=== PATIENT | male | born 1970 | race Caucasian/White ===

== ENCOUNTER 2022-01-30 19:53 | Inpatient (IN) | payer SELFPAY ==
[~2022-01-30] VITALS: Ht 180.3 cm; Wt 90.3 kg
[2022-01-30] VITALS (9 sets, daily range): BP systolic 94–116; BP diastolic 55–76
[2022-01-30] MEDS ORDERED: HALOPERIDOL LACTATE 5 MG/ML VIAL. IVP PRN (20:00)
--- NOTE | 2022-01-30 20:07 | NUR ---
admit form [facility] ER. patient's father found patient at home unresponsive covered in urine and feces. EMS called. CT shows left CVA. patient is mostly non- verbal . Once in a while will groan. unable to complete admission,.
[2022-01-30] MEDS ORDERED: 0.9 % SODIUM CHLORIDE 10 ML DISP.SYRIN. IV PRN (21:30)
[2022-01-30] MEDS ORDERED: ONDANSETRON PF 4 MG/2 ML VIAL. IVP PRN (21:30)
--- NOTE | 2022-01-30 21:59 | PDOC1 ---
History and Physical Date of Service: DOS: DATE: 01/30/22 TIME: 21:31 Chief Complaint: Chief Complain: found down History of Present Illness: HPI: Report from [facility] 51yo WM brought in by EMS today due to AMS and found down at home unresponsive, eventually having seizures on way to hospital. History was obtain from patients father and brother. No known PMHx but does not see doctors, family does not know much else about his medical history; father and brother do not speak with patient much, uncle lives close to him. They are able to endorse he is a daily alcohol user, no known drug use. Is normally able to take care of himself at home. Patient uncle had noted he was acting abnormal 2d ago and said he wasnt feeling well. Attempts at contacting him since had been unsuccessful and family went to check on him and he was found on his floor cover in stool not responding. EMS called at brought to hospital. On arrival patient active seizing, imaging revealed large acute ischemic stroke with small hemorrhagic conversion. He was also covered in stool and wounds. Seizing ceased wtih Ativan and patient was able to open his eyes minimally but swtill no meaningful history. Given Keppra load, broad abx and transferred here. On arrival here patient not responding to pain or voice, nursing at bedside reported he tried to mutter something when they were evaluating. Patient very unkempt, multiple wounds, R great toenail mostly torn off; other toenails at least a few inches long. Despite all of this hemodynamically pretty stable on arrival. Past Medical/Surgical History: PMH/PSH: alcohol abuse otherwise unknown Family History: Family History: cannot obtain Social History: Social History: daily alcohol use; unknown about tobacco drugs Current Medications: Current Medications Current Medications Multivitamins 10 ml/Thiamine HCl 100 mg/Folic Acid 1 mg/Sodium Chloride 1,011.2 ml @ 100 mls/ hr DAILY IV ; Start 01/31/22 at 09:00; Stop 02/04/22 at 19:07; Status UNV Multivitamins (Thera M Plus) 1 tab DAILY PO ; Start 02/04/22 at 09:00; Status UNV Folic Acid (Folic Acid) 1 mg DAILY PO ; Start 02/04/22 at 09:00; Status UNV Thiamine HCl (Thiamine Im) 100 mg DAILY IM ; Start 02/04/22 at 09:00; Stop 02/09/22 at 08:59; Status UNV Lorazepam (Ativan Inj) 2 mg PRN Q1HR PRN IV For CIWA 8-14; Start 01/30/22 at 20:00; Status UNV Lorazepam (Ativan Inj) 4 mg PRN Q1HR PRN IV For CIWA 15 or greater; Start 01/30/22 at 20:00; Status UNV Haloperidol Lactate (Haldol Inj) 5 mg PRN Q4HRS PRN IVP Hallucinatns,Confusn,Delirium; Start 01/30/22 at 20:00; Status UNV ROS: Review of Systems Review of System cannot obtain Physical Exam: Vital Signs: Vital Signs Date Time Temp Pulse Resp B/P (MAP) Pulse Ox O2 Delivery O2 Flow Rate FiO2 01/30/22 20:30 90 115/71 (86) 99 Room Air 01/30/22 19:00 98.2 98.2 Physcial Exam: GEN: no arousal to voice or stimuli HEENT: Normal cephalic, atraumatic, external auditory canals are patent EYES: pupils reactive MUSCULOSKELETAL: very unkempt, multiple wounds, malodorous ENDOCRINE: No thyromegaly was palpated LYMPHATICS: No cervical chain or axillary nodes were noted HEMATOPOIETIC: No bruising LUNGS: decreased throughout HEART: RRR, S1, S2 present. Peripheral pulses intact ABDOMEN: Soft, nontender. Positive bowel sounds, no organomegaly, normal bowel sounds EXTREMITIES: R 1st toenail ripped off, dirty with wounds NEUROLOGIC: no arousal to voice of painful stimuli; reported right sided deficits from [facility]; Assessment/Plan Assessment/Plan Acute Ischemic Stroke, Seizure 2/2 alcohol w/d?, Lactic acidosis, Alcohol abuse, Unable to care for self, Diffuse wounds -found down at home, unknown how long; imaging showing ischemic stroke with small hemorrhagic conversion -stroke and neuro consults -suspect seizures related to alcohol w/d; lactic acidosis likely 2/2 seizure activity -wound care podiatry consult -CIWA; ativan for any further seizure like activity as well -fluids, recheck CK -empiric antibiotics; -will try to elicit further history from family in morning -PT/OT once more alert 55min critical care time Justifications for Admission Other Justification UMANG CANDELARIO MD Jan 30, 2022 21:59
[2022-01-30] MEDS ORDERED: IV NORMAL SALINE 1000ML BAG 1,000 ML IV ONE (22:00)
[2022-01-30] MEDS ORDERED: HEPARIN for SUB-Q USE 5,000 UNIT/ML VIAL. SQ SCH (22:00)
[2022-01-30] MEDS ORDERED: PIP/TAZO PER PHARMACY MC PRN (22:00)
[2022-01-30 22:20] LABS: ALBUMIN 2.5 g/dL (3.4-5.0); ALBUMIN/GLOBULIN RATIO 0.7 (1.0-1.7); CALCIUM 7.7 mg/dL (8.5-10.1); CREATININE 0.9 mg/dL (0.7-1.3); TOTAL BILIRUBIN 1.1 mg/dL (0.2-1.0)
[2022-01-30 22:27] LABS: POTASSIUM 2.9 mmol/L (3.5-5.1)
[2022-01-30 23:07] LABS: BASO # 0.1 x10^3/uL (0.0-0.2); BASO % 1 % (0-3); EOS # 0.2 x10^3/uL (0.0-0.7); EOS % 3 % (0-3); HEMATOCRIT 35.3 % (39.0-53.0); HEMOGLOBIN 11.9 g/dL (13.0-17.5); LYMPH # 2.2 x10^3/uL (1.0-4.8); LYMPH % 31 % (24-48); MEAN CORPUSCULAR HEMOGLOBIN 35 pg (25-35); MEAN CORPUSCULAR HGB CONC 34 g/dL (31-37); MEAN CORPUSCULAR VOLUME 104 fL (79-100); MONO # 0.8 x10^3/uL (0.0-1.1); MONO % 11 % (0-9); NEUT % 54 % (31-73); PLATELET COUNT 246 x10^3/uL (140-400); RED BLOOD COUNT 3.41 x10^6/uL (4.30-5.70); RED CELL DISTRIBUTION WIDTH 17.1 % (11.5-14.5); WHITE BLOOD COUNT 7.3 x10^3/uL (4.0-11.0)
[2022-01-30] MEDS: POTASSIUM CHLORIDE 10MEQ 100 ML IV SCH (23:15)
[2022-01-30] MEDS: PIPERACILLIN/TAZOBACTAM 3.375 GM in IV NORMAL SALINE 50ML 50 ML IV SCH (23:20)
[2022-01-30] MEDS: VANCOMYCIN 1.25 GM in IV NORMAL SALINE 250ML 250 ML IV SCH (23:58)
[2022-01-31] VITALS (23 sets, daily range): BP systolic 97–161; BP diastolic 46–100
[2022-01-31] MEDS: POTASSIUM CHLORIDE 10MEQ 100 ML IV SCH ×12 (00:17→15:51)
[2022-01-31] MEDS: VANCOMYCIN PER PHARMACY MC PRN ×2 (01:33→17:11)
--- NOTE | 2022-01-31 01:33 | NUR ---
Pharmacy Vancomycin Dosing Note S:Consulted to monitor and dose vancomycin started 01/30/22. O:DOUG VARMA is a 51 year old M with Empiric . Height: 5 feet, 11 inches Weight: 82.8 kg [place] Body Weight: 75.30 Adjusted Body Weight: 78.30 Dosing Weight: Actual Other Antibiotics: ZOSYN 3.375 GM Q6H LABS: Last BUN: 12 Last Creatinine: 0.9 Creatinine Clearance: 107 mL/min Last WBC: 7.3 Last Procalcitonin: Tmax (past 24 hours): Microbiology: I/O: Drug Levels: Last level: on at Last dose given 01/31/22 at 0000 Vancomycin Dosing: Loading Dose: 2000 mg x1 Dosing Weight: Actual Target Trough: 15-20 A: Based on: WT AND CRCL P: 1. Begin Vancomycin 1250 mg IV q8h 2. Follow up Trough level on 01/31/22 at 1530 3. Pharmacy will continue to monitor, follow and adjust therapy as needed. SIMIN BIANCHI RPH, 01/31/22 0133 Signed: 01/31/22 at 0133 by SIMIN BIANCHI RPH PHA
[2022-01-31] MEDS: PIPERACILLIN/TAZOBACTAM 3.375 GM in IV NORMAL SALINE 50ML 50 ML IV SCH ×3 (05:31→18:03)
[2022-01-31 07:12] LABS: ALBUMIN 2.3 g/dL (3.4-5.0); ALBUMIN/GLOBULIN RATIO 0.7 (1.0-1.7); CALCIUM 7.6 mg/dL (8.5-10.1); CREATININE 0.8 mg/dL (0.7-1.3); GFR 101.9; TOTAL BILIRUBIN 1.2 mg/dL (0.2-1.0); TOTAL PROTEIN 5.5 g/dL (6.4-8.2)
[2022-01-31 07:14] LABS: POTASSIUM 2.9 mmol/L (3.5-5.1)
[2022-01-31] MEDS: FAMOTIDINE 20 MG/2 ML VIAL IVP SCH ×2 (08:27→20:38)
[2022-01-31] MEDS: SENNOSIDES/DOCUSATE 8.6/50MG TABLET. PO SCH ×2 (09:00→20:38)
[2022-01-31] MEDS: ELECTROLYTE (ICU) PROTOCOL. MC SCH (09:00)
[2022-01-31] MEDS: VANCOMYCIN 1.25 GM in IV NORMAL SALINE 250ML 250 ML IV SCH ×2 (09:16→19:00)
[2022-01-31] MEDS: MULTIVIT INFUSN,ADULT 4,VIT K 10 ML, THIAMINE INJ 100 MG, FOLIC ACID INJ 1 MG in IV NOR... IV SCH (09:16)
[2022-01-31 09:40] LABS: CHOLESTEROL/HDL RATIO 6.8
--- NOTE | 2022-01-31 10:16 | PDOC2 ---
NEUROLOGY CONSULT Date of Service DOS: DATE: 01/31/22 TIME: 10:04 Reason for Consult Reason for Consult: Strokes and seizures Referring Physician Referring Physician: Dr. High Source Source: Chart review History of Present Illness History of Present Illness The patient is a 51-year-old right-handed male who presented to [facility] with altered mental status. He was found down at home. He was seizing in the emergency department. According to Dr. Gutierrez's note, "patient does drink alcohol frequently, no history of IV drug abuse Does not work. Dad reports patient ambulates, drives and makes his own decisions. Patient's uncle had the most recent contract with patient, te lives behind patient's home and reported to dad that patient was not acting appropriately on the phone 2 days ago-the patient had complained of not feeling well. Dad is unsure when he last saw patient, suspects 1 to 2 weeks ago. Brother rarely sees pt. Hx is limited due to family being poor historians - they are not confident when pt was last at his baseline. They were confident that pt had had his covid vaccine." Neurology was not notified of this patient, the transfer, or the ICU admission, patient was on my list this morning. He was started on antibiotics and levetiracetam in the [facility] emergency department, but the levetiracetam has not been continue d here. No further seizures have been reported. Past Medical History Psych: Addictions Past Surgical History Past Surgical History: No pertinent history Family History Family History: No pertinent hx Social History Social History Drinks large amounts of alcohol, unemployed Current Medications Current Medications Current Medications Multivitamins 10 ml/Thiamine HCl 100 mg/Folic Acid 1 mg/Sodium Chloride 1,011.2 ml @ 100 mls/ hr DAILY IV Last administered on 01/31/22at 09:16; Start 01/31/22 at 09:00; Stop 02/04/22 at 19:07 Multivitamins (Thera M Plus) 1 tab DAILY PO ; Start 02/04/22 at 09:00 Folic Acid (Folic Acid) 1 mg DAILY PO ; Start 02/04/22 at 09:00 Thiamine HCl (Thiamine Im) 100 mg DAILY IM ; Start 02/04/22 at 09:00; Stop 02/09/22 at 08:59 Lorazepam (Ativan Inj) 2 mg PRN Q1HR PRN IV For CIWA 8-14; Start 01/30/22 at 20:00 Lorazepam (Ativan Inj) 4 mg PRN Q1HR PRN IV For CIWA 15 or greater; Start 01/30/22 at 20:00 Haloperidol Lactate (Haldol Inj) 5 mg PRN Q4HRS PRN IVP Hallucinatns,Confusn,Delirium; Start 01/30/22 at 20:00 Ondansetron HCl (Zofran) 4 mg PRN Q6HRS PRN IVP NAUSEA/VOMITING 1ST CHOICE; Start 01/30/22 at 21:30 Famotidine (Pepcid Vial) 20 mg BID IVP Last administered on 01/31/22at 08:27; Start 01/31/22 at 09:00 Info (Icu Electrolyte Protocol) 1 ea DAILY MC Last administered on 01/31/22at 09:00; Start 01/31/22 at 09:00 Heparin Sodium (Porcine) (Heparin Sodium) 5,000 unit Q8HRS SQ ; Start 01/30/22 at 22:00; Stop 01/30/22 at 21:47; Status DC Sodium Chloride (Normal Saline Flush) 3 ml QSHIFT PRN IV AFTER MEDS AND BLOOD DRAWS; Start 01/30/22 at 21:30 Senna/Docusate Sodium (Senna Plus) 1 tab BID PO ; Start 01/31/22 at 09:00 Piperacillin Sod/ Tazobactam Sod (Zosyn Per Pharmacy) 1 each PRN DAILY PRN MC SEE COMMENTS; Start 01/30/22 at 22:00 Vancomycin HCl (Vanco Per Pharmacy) 1 each PRN DAILY PRN MC SEE COMMENTS Last administered on 01/31/22at 01:33; Start 01/30/22 at 22:00 Sodium Chloride 1,000 ml @ 125 mls/hr 1X ONCE IV Last administered on 01/30/22at 22:00; Start 01/30/22 at 22:00; Stop 01/31/22 at 05:59; Status DC Potassium Chloride/Water 100 ml @ 100 mls/hr Q1H IV Last administered on 01/31/22at 03:06; Start 01/30/22 at 23:30; Stop 01/31/22 at 04:29; Status DC Piperacillin Sod/ Tazobactam Sod 3.375 gm/Sodium Chloride 50 ml @ 100 mls/hr Q6HRS IV Last administered on 01/31/22at 05:31; Start 01/31/22 at 00:00 Vancomycin HCl 1.25 gm/Sodium Chloride 250 ml @ 167 mls/hr Q8H IV Last administered on 01/31/22at 09:16; Start 01/31/22 at 00:00 Vancomycin HCl (Vancomycin Trough Level) 1 each 1X ONCE MC ; Start 01/31/22 at 15:30; Stop 01/31/22 at 15:31 Potassium Chloride/Water 100 ml @ 100 mls/hr Q1H IV Last administered on 01/31/22at 09:16; Start 01/31/22 at 08:00; Stop 01/31/22 at 15:59 Allergies Allergies: Coded Allergies: No Known Drug Allergies (Unverified , 01/30/22) ROS Review of System Not reliably obtained Physical Exam Physical Examination General: Well-developed, well-nourished, white male, in no acute distress HEENT: Normocephalic andatraumatic. Temporal arteriespulsatile and nontender. Neck: Supple without bruit, no meningismus Musculoskeletal: Stability:see neurologic. Gait exam:see neurologic. Tone:see neurologic.Strength:see neurologic. Neurological: Mental Status:orientation, memory, attention span/concentration, language, fund of knowledge: expressive aphasia, follows some commands. Cranial Nerves:Pupils equal and reactive to light, extraocular movements areintact, visual moon are full to threat. Facial sensation is normal. There is no facial asymmetry. Vestibulo-ocular reflex is intact. Palate elevates and tongue protrudes in midline. All other cranial related problems are negative except as mentioned before.Reflexes:2+ and symmetric with flexor plantar responses. Motor: 4/5 right hemiparesis. Coordination: and gait:Not cooperative. Sensory:Responds to pinprick in all 4 extremities. Vitals VITALS Vital Signs Date Time Temp Pulse Resp B/P (MAP) Pulse Ox O2 Delivery O2 Flow Rate FiO2 01/31/22 07:00 Room Air 01/31/22 07:00 112 22 108/67 (81) 96 01/31/22 04:00 98.1 98.1 Labs Labs Laboratory Tests Test 01/30/22 21:50 01/30/22 22:55 01/31/22 06:35 Sodium Level 142 mmol/L (136-145) 145 mmol/L (136-145) Potassium Level 2.9 mmol/L (3.5-5.1) 2.9 mmol/L (3.5-5.1) Chloride Level 101 mmol/L (98-107) 104 mmol/L (98-107) Carbon Dioxide Level 28 mmol/L (21-32) 27 mmol/L (21-32) Anion Gap 13 (6-14) 14 (6-14) Blood Urea Nitrogen 12 mg/dL (8-26) 7 mg/dL (8-26) Creatinine 0.9 mg/dL (0.7-1.3) 0.8 mg/dL (0.7-1.3) Estimated GFR (Cockcroft-Gault) 89.0 101.9 BUN/Creatinine Ratio 13 (6-20) 9 (6-20) Glucose Level 70 mg/dL (70-99) 69 mg/dL (70-99) Lactic Acid Level 1.0 mmol/L (0.4-2.0) Calcium Level 7.7 mg/dL (8.5-10.1) 7.6 mg/dL (8.5-10.1) Total Bilirubin 1.1 mg/dL (0.2-1.0) 1.2 mg/dL (0.2-1.0) Aspartate Amino Transf (AST/SGOT) 33 U/L (15-37) 28 U/L (15-37) Alanine Aminotransferase (ALT/SGPT) 25 U/L (16-63) 23 U/L (16-63) Alkaline Phosphatase 94 U/L (46-116) 78 U/L (46-116) Ammonia 23 mcmol/L (11-34) Creatine Kinase 93 U/L (39-308) Total Protein 6.0 g/dL (6.4-8.2) 5.5 g/dL (6.4-8.2) Albumin 2.5 g/dL (3.4-5.0) 2.3 g/dL (3.4-5.0) Albumin/Globulin Ratio 0.7 (1.0-1.7) 0.7 (1.0-1.7) White Blood Count 7.3 x10^3/uL (4.0-11.0) Red Blood Count 3.41 x10^6/uL (4.30-5.70) Hemoglobin 11.9 g/dL (13.0-17.5) Hematocrit 35.3 % (39.0-53.0) Mean Corpuscular Volume 104 fL (79-100) Mean Corpuscular Hemoglobin 35 pg (25-35) Mean Corpuscular Hemoglobin Concent 34 g/dL (31-37) Red Cell Distribution Width 17.1 % (11.5-14.5) Platelet Count 246 x10^3/uL (140-400) Neutrophils (%) (Auto) 54 % (31-73) Lymphocytes (%) (Auto) 31 % (24-48) Monocytes (%) (Auto) 11 % (0-9) Eosinophils (%) (Auto) 3 % (0-3) Basophils (%) (Auto) 1 % (0-3) Neutrophils # (Auto) 4.0 x10^3/uL (1.8-7.7) Lymphocytes # (Auto) 2.2 x10^3/uL (1.0-4.8) Monocytes # (Auto) 0.8 x10^3/uL (0.0-1.1) Eosinophils # (Auto) 0.2 x10^3/uL (0.0-0.7) Basophils # (Auto) 0.1 x10^3/uL (0.0-0.2) Triglycerides Level 138 mg/dL (0-150) Cholesterol Level 149 mg/dL (0-200) LDL Cholesterol, Calculated 99 mg/dL (0-100) VLDL Cholesterol, Calculated 28 mg/dL (0-40) Non-HDL Cholesterol Calculated 127 mg/dL (0-129) HDL Cholesterol 22 mg/dL (40-60) Cholesterol/HDL Ratio 6.8 Laboratory Tests Test 01/30/22 21:50 01/30/22 22:55 01/31/22 06:35 Sodium Level 142 mmol/L (136-145) 145 mmol/L (136-145) Potassium Level 2.9 mmol/L (3.5-5.1) 2.9 mmol/L (3.5-5.1) Chloride Level 101 mmol/L (98-107) 104 mmol/L (98-107) Carbon Dioxide Level 28 mmol/L (21-32) 27 mmol/L (21-32) Anion Gap 13 (6-14) 14 (6-14) Blood Urea Nitrogen 12 mg/dL (8-26) 7 mg/dL (8-26) Creatinine 0.9 mg/dL (0.7-1.3) 0.8 mg/dL (0.7-1.3) Estimated GFR (Cockcroft-Gault) 89.0 101.9 BUN/Creatinine Ratio 13 (6-20) 9 (6-20) Glucose Level 70 mg/dL (70-99) 69 mg/dL (70-99) Lactic Acid Level 1.0 mmol/L (0.4-2.0) Calcium Level 7.7 mg/dL (8.5-10.1) 7.6 mg/dL (8.5-10.1) Total Bilirubin 1.1 mg/dL (0.2-1.0) 1.2 mg/dL (0.2-1.0) Aspartate Amino Transf (AST/SGOT) 33 U/L (15-37) 28 U/L (15-37) Alanine Aminotransferase (ALT/SGPT) 25 U/L (16-63) 23 U/L (16-63) Alkaline Phosphatase 94 U/L (46-116) 78 U/L (46-116) Ammonia 23 mcmol/L (11-34) Creatine Kinase 93 U/L (39-308) Total Protein 6.0 g/dL (6.4-8.2) 5.5 g/dL (6.4-8.2) Albumin 2.5 g/dL (3.4-5.0) 2.3 g/dL (3.4-5.0) Albumin/Globulin Ratio 0.7 (1.0-1.7) 0.7 (1.0-1.7) White Blood Count 7.3 x10^3/uL (4.0-11.0) Red Blood Count 3.41 x10^6/uL (4.30-5.70) Hemoglobin 11.9 g/dL (13.0-17.5) Hematocrit 35.3 % (39.0-53.0) Mean Corpuscular Volume 104 fL (79-100) Mean Corpuscular Hemoglobin 35 pg (25-35) Mean Corpuscular Hemoglobin Concent 34 g/dL (31-37) Red Cell Distribution Width 17.1 % (11.5-14.5) Platelet Count 246 x10^3/uL (140-400) Neutrophils (%) (Auto) 54 % (31-73) Lymphocytes (%) (Auto) 31 % (24-48) Monocytes (%) (Auto) 11 % (0-9) Eosinophils (%) (Auto) 3 % (0-3) Basophils (%) (Auto) 1 % (0-3) Neutrophils # (Auto) 4.0 x10^3/uL (1.8-7.7) Lymphocytes # (Auto) 2.2 x10^3/uL (1.0-4.8) Monocytes # (Auto) 0.8 x10^3/uL (0.0-1.1) Eosinophils # (Auto) 0.2 x10^3/uL (0.0-0.7) Basophils # (Auto) 0.1 x10^3/uL (0.0-0.2) Triglycerides Level 138 mg/dL (0-150) Cholesterol Level 149 mg/dL (0-200) LDL Cholesterol, Calculated 99 mg/dL (0-100) VLDL Cholesterol, Calculated 28 mg/dL (0-40) Non-HDL Cholesterol Calculated 127 mg/dL (0-129) HDL Cholesterol 22 mg/dL (40-60) Cholesterol/HDL Ratio 6.8 Images Images [facility], 01/30 CT HEAD AND CERVICAL SPINE WO No previous studies are available for comparison. There is generalized parenchymal atrophy. Somewhat wedge-shaped areas of decreased attenuation are seen involving left frontal, left temporal, left occipital and left parietal lobes which likely represent areas of recent infarction. Several of these areas demonstrate increased attenuation which may reflect small areas of hemorrhage. There is no significant mass effect. No midline shift is seen. No extra-axial fluid collection is noted. No skull f racture is seen. IMPRESSION: Areas of decreased attenuation which are felt to represent areas of recent infarction are seen involving the left cerebral hemisphere as discussed above. No significant mass effect is seen. CT scan of the cervical spine without contrast 01/30/2022 Sagittal and coronal reconstructed images demonstrate mild straightening of the normal cervical lordosis. Degenerative changes consisting of varying degrees of disc space narrowing, vertebral endplate sclerosis and minimal to mild anterior and posterior vertebral body osteophyte formation are seen throughout the cervical disc spaces. 4.5 cm heterogeneous mass is seen involving the left lobe of thyroid gland. No fracture or subluxation cervical vertebrae seen. The changes are seen in volving the uncovertebral and facet joints scattered throughout the cervical disc spaces. No area of significant central spinal canal or neural foraminal stenosis is seen. IMPRESSION: Degenerative changes are seen involving cervical spine as discussed above. These findings do not result in significant central spinal canal stenosis. No neural foraminal stenosis is seen. No acute osseous abnormality is seen. CT CHEST ABDOMEN PELVIS WO CT chest: In the superior mediastinum there is a 5.4 cm mass which appears to represent mediastinal extension from a thyroid mass. This appears to be none and the patient has had prior thyroid imaging. Follow-up thyroid ultrasound is suggested. The lungs demonstrate no significant consolidation, mass or suspicious nodule. Mild the emphysema changes are seen. The thoracic aorta is normal in caliber. The heart size is normal. No pericardial effusion. There is no pleural effusion. No lymphadenopathy in the mediastinum, alex or axilla. CT abdomen and pelvis: The liver, gallbladder, spleen, pancreas, and the left adrenal gland appear unremarkable. The right adrenal gland demonstrate a low density nodule measuring catheter 3 cm in size likely related to an adenoma. The kidneys demonstrates no hydronephrosis. There is no urinary tract stone identified. There is a Parra's catheter in place. There is no bowel obstruction. The appendix is normal. There is an area of the thickening around the descending colon of uncertain etiology. The area of the thickening appears to be inseparable from the colonic wall but also involves the adjacent retroperitoneal fat. Indeterminate punctate calcification is seen in this region. This area has irregular borders and could represent scarring. Correlate with surgical history. Findings are indeterminate and further evaluation with colonoscopy and contrast enhanced CT is suggested. The abdominal aorta is normal in caliber. No para-aortic significantly enlarged lymph node is seen. The osseous structures demonstrate mild degenerative changes in the thoracic and lumbar spine. IMPRESSION: CT chest: 5.4 cm superior mediastinal mass appears to be extension of thyroid goiter or mass. Follow-up nonemergent thyroid ultrasound is recommended. CT abdomen and pelvis: 1. Area of irregular focal thickening in the descending colon wall inseparable from the adjacent retroperitoneal tissue. Etiology is uncertain. Follow-up colonoscopy and CT scan of the abdomen and pelvis with contrast is recommended. 2. Right adrenal nodule measuring 3 cm with low density suggestive of lipid rich adenoma. CTA of the head and neck with contrast 01/30/2022 Comparison is made to patient's CT scan of the head performed earlier today. There is a common origin of the brachiocephalic and left common carotid arteries within the thoracic aortic arch. This is a normal variation. This origin is patent. The left vertebral artery originates as a discrete branch from the th oracic aortic arch proximal to the origin of the left subclavian artery. This is a normal variation. This origin is patent. The origin of the left subclavian artery is patent. The origins of the right common carotid artery and the right vertebral artery are patent. Mild atheromatous plaque formation seen involving both carotid bifurcations, left greater than right. A 50 percent stenosis is seen involving the proximal left internal carotid artery at its origin. This measures 8 mm in length. No hemodynamically significant stenosis is seen involving the right carotid bifurcation. The vertebral arteries are codominant. Both vertebral arteries demonstrate normal antegrade flow. No area stenosis or occlusion is seen. Intracranially, scattered atherosclerotic plaque formation is seen involving the cavernous portions of both internal carotid arteries. No hemodynamically significant stenosis or area of occlusion is seen. The basilar artery is patent. The anterior, middle and posterior cerebral arteries and their branches are within normal limits. No area of stenosis or occlusion is seen. No intracranial aneurysm is noted. The major dural venous sinuses are patent. Hyperemic enhancement is seen in the areas of recent infarction on the left cerebral hemisphere. No acute soft tissue abnormality is seen involving the neck. 4.5 cm heterogeneous nodule seen involving the left lobe of thyroid gland. This does not appear significantly changed from the patient's ultrasound dated 01/12/2018. Degenerative changes are seen involving the uncovertebral and facet joints throughout the cervical disc spaces. Impression: 1. Mild atheromatous plaque formation is seen involving both carotid bifurcations, left greater than right. A 50 percent stenosis is seen involving the proximal left internal carotid artery. 2. No intracranial stenosis or area of occlusion is seen. Right elbow, 2 views. HISTORY: Abrasion. Pain. COMPARISON: None. FINDINGS: 2 views of the right elbow are obtained. There is no fracture, dislocation or subluxation. Evaluation for effusion is limited due to oblique positioning. IMPRESSION: No convincing acute osseous finding. Electronically signed by: Blanka Del Valle MD (01/30/2022 4:29 PM) [facility] Assessment/Plan Assessment/Plan Impression: Multiple small infarcts in the left hemisphere with some hemorrhagic transformation, but without significant mass effect. Left internal carotid artery 50% stenosis Cervical spondylosis Abnormal CT abdomen Thyroid mass Alcoholism Recommendations: MRI of the brain Echocardiogram Blood pressure target less than 150/90 Watch in ICU 1 more night given the hemorrhagic transformation Rehabilitation modalities Management of abnormal CT abdomen and thyroid mass per internal medicine Alcohol withdrawal protocol Thank you for letting me help with the patient's care. ASHOK DILLARD MD Jan 31, 2022 10:16
--- NOTE | 2022-01-31 13:57 | NUR ---
Wound Care Wound Type/Assessment: 51 year old male found down at home. Diagnosed with CVA. Patient is awake but not verbal nor responding appropriately to commands. Upon exam patient has 3 current wound. Wound 1 is to the right elbow. Wound is a skin tear abrasion. Wound bed is pink and moist and draining serous fluid. Small island of slough noted in wound bed. Periwound is clear and non edematous. Wound 2 is a skin tear abrasion to medial area of right knee. Wound bed is reddened but otherwise dry and appears to be healing. No active signs of infection around this wound. Wound 3 is an evulsed great toenail. Nail fully came off during wound care. No active bleeding noted. Nail bed is pink and moist, draining serous fluid. Remaining nails will need to be trimmed by Podiatry. Treatment Recommendations/Plan: Treatment will be supportive. Xeroform to wound bed of all 3 wounds and covered with a protective foam or telfa pad. Wounds to be changed every other day or as needed if become dislodged or soiled. Education provided: None Offloading surface/device: Patients feet, legs and righ arm were floated with pillows. Recommended Referrals/Tests: Recommend follow up with Podiatry for nail trimming. Discharge Recommendations for dressings: Continue as above.
--- NOTE | 2022-01-31 14:11 | RAD ---
EXAM: Brain MRI without contrast. HISTORY: Hemorrhagic stroke. TECHNIQUE: Multiplanar, multisequence magnetic resonance imaging of the brain was performed without c ontrast. COMPARISON: CT dated 01/30/2022. FINDINGS: There are multiple areas of restricted diffusion due to acute infarction involving the left frontal, parietal, temporal and occipital lobes. There is T1 hyperintensity and susceptibility effec t due to superimposed hemorrhage within the region of infarction involving the left parietal and temp oral lobes. There is minimal effacement of the left lateral ventricle. There is no midline shift. The re is no hydrocephalus. There is mild nonspecific signal change within the cerebral white matter, likely due to chronic small vessel disease in a patient of this age. The orbits are unremarkable. The paranasal sinuses are unre markable. There is minimal mastoid fluid. There are normal flow voids within the cerebral vessels. Th ere is no suspicious calvarial lesion. IMPRESSION: 1. Acute infarcts involving the left frontal, occipital, parietal and temporal lobes, the latter of w hich are associated with acute hemorrhage. 2. Nonspecific cerebral white matter changes, likely due to chronic small vessel disease. Findings were discussed with Hayden, the nurse caring for the patient, at 1400 hours on 01/31/2022. FOR INTERNAL CODING PURPOSES RESULT CODE: (C) Electronically signed by: Blanka Del Valle MD (01/31/2022 2:09 PM) [id number]
--- NOTE | 2022-01-31 15:38 | NUR ---
SS following for discharge planning. SS reviewed pt chart and discussed with pt RN. Pt is from home and is currently on room air. Pt on IV Vancomycin and IV Zosyn. Neurology following. MRI and ECHO today. PT/OT/ST ordered. Self pay. Med Assist following. SS will continue to follow for discharge planning.
--- NOTE | 2022-01-31 15:48 | CARD ---
MR#: [id number] Date of Study: 01/31/2022 Ordering Physician: ASHOK DILLARD, Referring Physician: ASHOK DILLARD, Tech: Verónica Akhtar [facility] APPROVED REPORT EXAM: Two-dimensional and M-mode echocardiogram with Doppler and color Doppler. Other Information Quality : Technically LimitedHR: 107bpm Rhythm : NSR INDICATION CVA/TIA RISK FACTORS Hypertension 2D DIMENSIONS Left Atrium(2D)4.1 (1.6-4.0cm)IVSd1.1 (0.7-1.1cm) Aortic Root(2D)3.1 (2.0-3.7cm)LVDd3.8 (3.9-5.9cm) LVOT Diameter2.5 (1.8-2.4cm)PWd0.9 (0.7-1.1cm) LVDs2.3 (2.5-4.0cm)FS (%) 40.0 % SV44.4 mlLVEF(%)71.3 (>50%) LEFT VENTRICLE The left ventricle is normal size. There is normal left ventricular wall thickness. The left ventricu lar systolic function is normal. The ejection fraction is 65%. There is normal LV segmental wall jake on. RIGHT VENTRICLE The right ventricle is normal size. There is normal right ventricular wall thickness. The right ventr icular systolic function is normal. ATRIA The left atrium size is normal. The right atrium size is normal. The interatrial septum is intact wit h no evidence for an atrial septal defect or patent foramen ovale as noted on 2-D or Doppler imaging. AORTIC VALVE The aortic valve is normal in structure and function. Doppler and Color Flow revealed no significant aortic regurgitation. There is no significant aortic valvular stenosis. MITRAL VALVE The mitral valve is normal in structure and function. There is no evidence of mitral valve prolapse. There is no mitral valve stenosis. Doppler and Color Flow revealed no mitral valve regurgitation note d. TRICUSPID VALVE The tricuspid valve is normal in structure and function. Doppler and Color Flow revealed trace tricus pid valve regurgitation. There is no tricuspid valve stenosis. GREAT VESSELS The aortic root is normal in size. The ascending aorta is normal in size. PERICARDIAL EFFUSION There is no evidence of significant pericardial effusion. Critical Notification Critical Value: No <Conclusion> The left ventricular systolic function is normal. The ejection fraction is 65%. There is normal LV segmental wall motion. Trace tricuspid regurgitation. There is no evidence of significant pericardial effusion. Signed by : Xu Perez, Electronically Approved : 01/31/2022 15:48:01
--- NOTE | 2022-01-31 16:30 | NUR ---
Dr. Azevedo notified of MRI results. No new orders, will continue to monitor.
[2022-01-31 16:44] LABS: VANC TR 22.5 mcg/mL (10.0-20.0)
--- NOTE | 2022-01-31 17:14 | NUR ---
Pharmacy Vancomycin Dosing Note S:Consulted to monitor and dose vancomycin started 01/30/22. O:DOUG VARMA is a 51 year old M with Empiric . Height: 5 feet, 11 inches Weight: 82.619051 kg Hortense Body Weight: 213.30 Adjusted Body Weight: 161.10 Dosing Weight: Actual Other Antibiotics: ZOSYN 3.375 GM Q6H LABS: Last BUN: 12 Last Creatinine: 0.8 Creatinine Clearance: 107 mL/min Last WBC: 7.3 Last Procalcitonin: Tmax (past 24 hours): Microbiology: I/O: Drug Levels: Last Trough level: 22.5 on 01/31/22 at 1600 Last dose given 01/31/22 at 0800 Vancomycin Dosing: Loading Dose: 2000 mg x1 Dosing Weight: Actual Target Trough: 15-20 A: Based on: LEVEL P: 1. Change Vancomycin 1250 mg IV q12h 2. Follow up Trough level on 02/01/22 at 1830 3. Pharmacy will continue to monitor, follow and adjust therapy as needed. LUIS ARMANDO [facility], 01/31/22 [id number]
--- NOTE | 2022-01-31 19:35 | PDOC ---
[facility] PROGRESS NOTE Date of Service DOS: DATE: 01/31/22 TIME: 19:32 Chief Complaint Chief Complaint Acute Ischemic Stroke, Seizure 2/2 alcohol w/d?, Lactic acidosis, Alcohol abuse, Unable to care for self, Diffuse wounds -found down at home, unknown how long; imaging showing ischemic stroke with s mall hemorrhagic conversion -stroke and neuro consults --> MRI brain recommended -suspect seizures related to alcohol w/d; lactic acidosis likely 2/2 seizure activity -wound care podiatry consult -CIWA; -fluids -empiric antibiotics; -PT/OT History of Present Illness History of Present Illness 01/31 Patient evaluated examined at bedside. In bed notably more alert from overnight. Right-sided deficit is much more apparent with his speech. Did not continue Keppra from outside hospital as suspected seizures were related to alcohol withdrawal. MRI brain ordered. Echo with bubble study. PT OT speech. 45 minutes critical care time. Vitals/I&O Vitals/I&O: Vital Signs Date Time Temp Pulse Resp B/P (MAP) Pulse Ox O2 Delivery O2 Flow Rate FiO2 01/31/22 18:00 103 18 119/81 (94) 97 Room Air 01/31/22 16:00 98.8 98.8 I & O 01/30/22 01/30/22 01/31/22 15:00 23:00 07:00 Intake Total 802 ml Output Total 425 ml 675 ml Balance -425 ml 127 ml Physical Exam General: Alert, Cooperative, No acute distress Heart: Regular rate Lungs: Clear Abdomen: Normal bowel sounds, Soft, No tenderness Extremities: Normal pulses Skin: Other (multiple lesions throughout) Labs Labs: Laboratory Tests Test 01/30/22 21:50 01/30/22 22:55 01/31/22 06:35 01/31/22 16:00 Sodium Level 142 mmol/L (136-145) 145 mmol/L (136-145) Potassium Level 2.9 mmol/L (3.5-5.1) 2.9 mmol/L (3.5-5.1) Chloride Level 101 mmol/L (98-107) 104 mmol/L (98-107) Carbon Dioxide Level 28 mmol/L (21-32) 27 mmol/L (21-32) Anion Gap 13 (6-14) 14 (6-14) Blood Urea Nitrogen 12 mg/dL (8-26) 7 mg/dL (8-26) Creatinine 0.9 mg/dL (0.7-1.3) 0.8 mg/dL (0.7-1.3) Estimated GFR (Cockcroft-Gault) 89.0 101.9 BUN/Creatinine Ratio 13 (6-20) 9 (6-20) Glucose Level 70 mg/dL (70-99) 69 mg/dL (70-99) Lactic Acid Level 1.0 mmol/L (0.4-2.0) Calcium Level 7.7 mg/dL (8.5-10.1) 7.6 mg/dL (8.5-10.1) Total Bilirubin 1.1 mg/dL (0.2-1.0) 1.2 mg/dL (0.2-1.0) Aspartate Amino Transf (AST/SGOT) 33 U/L (15-37) 28 U/L (15-37) Alanine Aminotransferase (ALT/SGPT) 25 U/L (16-63) 23 U/L (16-63) Alkaline Phosphatase 94 U/L (46-116) 78 U/L (46-116) Ammonia 23 mcmol/L (11-34) Creatine Kinase 93 U/L (39-308) Total Protein 6.0 g/dL (6.4-8.2) 5.5 g/dL (6.4-8.2) Albumin 2.5 g/dL (3.4-5.0) 2.3 g/dL (3.4-5.0) Albumin/Globulin Ratio 0.7 (1.0-1.7) 0.7 (1.0-1.7) Hepatitis A IgM Antibody Nonreactive (Nonreactive) Hepatitis B Surface Antigen Nonreactive (Nonreactive) Hepatitis B Core IgM Antibody Nonreactive (Nonreactive) Hepatitis C IgG Antibody Nonreactive (Nonreactive) HIV (1&2) Antibody Screen Nonreactive (Nonreactive) White Blood Count 7.3 x10^3/uL (4.0-11.0) Red Blood Count 3.41 x10^6/uL (4.30-5.70) Hemoglobin 11.9 g/dL (13.0-17.5) Hematocrit 35.3 % (39.0-53.0) Mean Corpuscular Volume 104 fL (79-100) Mean Corpuscular Hemoglobin 35 pg (25-35) Mean Corpuscular Hemoglobin Concent 34 g/dL (31-37) Red Cell Distribution Width 17.1 % (11.5-14.5) Platelet Count 246 x10^3/uL (140-400) Neutrophils (%) (Auto) 54 % (31-73) Lymphocytes (%) (Auto) 31 % (24-48) Monocytes (%) (Auto) 11 % (0-9) Eosinophils (%) (Auto) 3 % (0-3) Basophils (%) (Auto) 1 % (0-3) Neutrophils # (Auto) 4.0 x10^3/uL (1.8-7.7) Lymphocytes # (Auto) 2.2 x10^3/uL (1.0-4.8) Monocytes # (Auto) 0.8 x10^3/uL (0.0-1.1) Eosinophils # (Auto) 0.2 x10^3/uL (0.0-0.7) Basophils # (Auto) 0.1 x10^3/uL (0.0-0.2) Triglycerides Level 138 mg/dL (0-150) Cholesterol Level 149 mg/dL (0-200) LDL Cholesterol, Calculated 99 mg/dL (0-100) VLDL Cholesterol, Calculated 28 mg/dL (0-40) Non-HDL Cholesterol Calculated 127 mg/dL (0-129) HDL Cholesterol 22 mg/dL (40-60) Cholesterol/HDL Ratio 6.8 Vancomycin Level Trough 22.5 mcg/mL (10.0-20.0) Vancomycin Last Dose Date 01/31/22 Vancomycin Last Dose Time 0800 Comment Review of Relevant I have reviewed the following items erwin (where applicable) has been applied. Medications: Current Medications Medications (Trade) Dose Ordered Sig/Warren Route PRN Reason Start Time Stop Time Status Last Admin Dose Admin Multivitamins 10 ml/Thiamine HCl 100 mg/Folic Acid 1 mg/Sodium Chloride 1,011.2 ml @ 100 mls/ hr DAILY IV 01/31/22 09:00 02/04/22 19:07 01/31/22 09:16 Famotidine (Pepcid Vial) 20 mg BID IVP 01/31/22 09:00 01/31/22 08:27 Info (Icu Electrolyte Protocol) 1 ea DAILY MC 3/14/22 09:00 01/31/22 09:00 Vancomycin HCl (Vanco Per Pharmacy) 1 each PRN DAILY PRN MC SEE COMMENTS 01/30/22 22:00 01/31/22 17:11 Sodium Chloride 1,000 ml @ 125 mls/hr 1X ONCE IV 01/30/22 22:00 01/31/22 05:59 DC 01/30/22 22:00 Potassium Chloride/Water 100 ml @ 100 mls/hr Q1H IV 01/30/22 23:30 01/31/22 04:29 DC 01/31/22 03:06 Piperacillin Sod/ Tazobactam Sod 3.375 gm/Sodium Chloride 50 ml @ 100 mls/hr Q6HRS IV 01/31/22 00:00 01/31/22 18:03 Vancomycin HCl 1.25 gm/Sodium Chloride 250 ml @ 167 mls/hr Q8H IV 01/31/22 00:00 01/31/22 17:08 DC 01/31/22 09:16 Vancomycin HCl (Vancomycin Trough Level) 1 each 1X ONCE MC 01/31/22 15:30 01/31/22 15:31 DC 01/31/22 15:30 Potassium Chloride/Water 100 ml @ 100 mls/hr Q1H IV 01/31/22 08:00 01/31/22 15:59 DC 01/31/22 15:51 Justifications for Admission Other Justification UMANG CANDELARIO MD Jan 31, 2022 19:35
[2022-02-01] VITALS (13 sets, daily range): BP systolic 114–149; BP diastolic 60–84
[2022-02-01] MEDS: PIPERACILLIN/TAZOBACTAM 3.375 GM in IV NORMAL SALINE 50ML 50 ML IV SCH ×4 (00:39→17:59)
[2022-02-01] MEDS: VANCOMYCIN 1.25 GM in IV NORMAL SALINE 250ML 250 ML IV SCH ×2 (07:00→19:53)
[2022-02-01] MEDS: SENNOSIDES/DOCUSATE 8.6/50MG TABLET. PO SCH ×2 (07:21→19:54)
[2022-02-01] MEDS: FAMOTIDINE 20 MG/2 ML VIAL IVP SCH ×2 (08:06→19:54)
[2022-02-01] MEDS: MULTIVIT INFUSN,ADULT 4,VIT K 10 ML, THIAMINE INJ 100 MG, FOLIC ACID INJ 1 MG in IV NOR... IV SCH (08:23)
[2022-02-01 08:28] LABS: BASO # 0.1 x10^3/uL (0.0-0.2); BASO % 1 % (0-3); EOS # 0.2 x10^3/uL (0.0-0.7); EOS % 3 % (0-3); LYMPH # 2.4 x10^3/uL (1.0-4.8); LYMPH % 32 % (24-48); MEAN CORPUSCULAR HEMOGLOBIN 34 pg (25-35); MEAN CORPUSCULAR HGB CONC 33 g/dL (31-37); MEAN CORPUSCULAR VOLUME 101 fL (79-100); MONO # 0.9 x10^3/uL (0.0-1.1); MONO % 13 % (0-9); NEUT # 3.8 x10^3/uL (1.8-7.7); NEUT % 52 % (31-73); PLATELET COUNT 252 x10^3/uL (140-400); RED BLOOD COUNT 3.56 x10^6/uL (4.30-5.70); RED CELL DISTRIBUTION WIDTH 17.3 % (11.5-14.5); WHITE BLOOD COUNT 7.4 x10^3/uL (4.0-11.0)
--- NOTE | 2022-02-01 08:46 | PDOC ---
PROGRESS NOTES Date of Service DATE: 02/01/22 TIME: 08:42 Assessment Multiple small infarcts in the left hemisphere with some hemorrhagic transformation, but without significant mass effect. Left internal carotid artery 50% stenosis Cervical spondylosis Abnormal CT abdomen Thyroid mass Alcoholism Favorable lipid profile Plan Okay to transfer to [facility]. Blood pressure target less than 150/90 Rehabilitation modalities, await swallow evaluation Management of abnormal CT abdomen and thyroid mass per internal medicine Alcohol withdrawal protocol Subjective Wants to eat Objective Vital Signs Date Time Temp Pulse Resp B/P (MAP) Pulse Ox O2 Delivery O2 Flow Rate FiO2 02/01/22 07:00 102 16 140/83 (102) 96 Room Air 02/01/22 04:00 98.4 98.4 Intake and Output 02/01/22 07:00 Intake Total 1572 ml Output Total 4485 ml Balance -2913 ml Intake Oral 0 ml IV Total 1572 ml Output Urine Total 4485 ml PHYSICAL EXAM Alert. Expressive aphasia, follows some commands, quite a bit of intelligible speech PERRL. EOMI. CN: Right visual field cut, right central facial weakness Muscle tone: normal. Muscle strength: 4/5 right hemiparesis DTR: 2+ Plantar reflex: Flexor Gait: not examined in bed. Sensory exam: no abnormal findings. No cerebellar signs elicited out of proportion to weakness. Review of Relevant I have reviewed the following items erwin (where applicable) has been applied. Labs Laboratory Tests Test 01/30/22 21:50 01/30/22 22:55 01/31/22 06:35 01/31/22 16:00 Sodium Level 142 mmol/L (136-145) 145 mmol/L (136-145) Potassium Level 2.9 mmol/L (3.5-5.1) 2.9 mmol/L (3.5-5.1) Chloride Level 101 mmol/L (98-107) 104 mmol/L (98-107) Carbon Dioxide Level 28 mmol/L (21-32) 27 mmol/L (21-32) Anion Gap 13 (6-14) 14 (6-14) Blood Urea Nitrogen 12 mg/dL (8-26) 7 mg/dL (8-26) Creatinine 0.9 mg/dL (0.7-1.3) 0.8 mg/dL (0.7-1.3) Estimated GFR (Cockcroft-Gault) 89.0 101.9 BUN/Creatinine Ratio 13 (6-20) 9 (6-20) Glucose Level 70 mg/dL (70-99) 69 mg/dL (70-99) Lactic Acid Level 1.0 mmol/L (0.4-2.0) Calcium Level 7.7 mg/dL (8.5-10.1) 7.6 mg/dL (8.5-10.1) Total Bilirubin 1.1 mg/dL (0.2-1.0) 1.2 mg/dL (0.2-1.0) Aspartate Amino Transf (AST/SGOT) 33 U/L (15-37) 28 U/L (15-37) Alanine Aminotransferase (ALT/SGPT) 25 U/L (16-63) 23 U/L (16-63) Alkaline Phosphatase 94 U/L (46-116) 78 U/L (46-116) Ammonia 23 mcmol/L (11-34) Creatine Kinase 93 U/L (39-308) Total Protein 6.0 g/dL (6.4-8.2) 5.5 g/dL (6.4-8.2) Albumin 2.5 g/dL (3.4-5.0) 2.3 g/dL (3.4-5.0) Albumin/Globulin Ratio 0.7 (1.0-1.7) 0.7 (1.0-1.7) Hepatitis A IgM Antibody Nonreactive (Nonreactive) Hepatitis B Surface Antigen Nonreactive (Nonreactive) Hepatitis B Core IgM Antibody Nonreactive (Nonreactive) Hepatitis C IgG Antibody Nonreactive (Nonreactive) HIV (1&2) Antibody Screen Nonreactive (Nonreactive) White Blood Count 7.3 x10^3/uL (4.0-11.0) Red Blood Count 3.41 x10^6/uL (4.30-5.70) Hemoglobin 11.9 g/dL (13.0-17.5) Hematocrit 35.3 % (39.0-53.0) Mean Corpuscular Volume 104 fL (79-100) Mean Corpuscular Hemoglobin 35 pg (25-35) Mean Corpuscular Hemoglobin Concent 34 g/dL (31-37) Red Cell Distribution Width 17.1 % (11.5-14.5) Platelet Count 246 x10^3/uL (140-400) Neutrophils (%) (Auto) 54 % (31-73) Lymphocytes (%) (Auto) 31 % (24-48) Monocytes (%) (Auto) 11 % (0-9) Eosinophils (%) (Auto) 3 % (0-3) Basophils (%) (Auto) 1 % (0-3) Neutrophils # (Auto) 4.0 x10^3/uL (1.8-7.7) Lymphocytes # (Auto) 2.2 x10^3/uL (1.0-4.8) Monocytes # (Auto) 0.8 x10^3/uL (0.0-1.1) Eosinophils # (Auto) 0.2 x10^3/uL (0.0-0.7) Basophils # (Auto) 0.1 x10^3/uL (0.0-0.2) Triglycerides Level 138 mg/dL (0-150) Cholesterol Level 149 mg/dL (0-200) LDL Cholesterol, Calculated 99 mg/dL (0-100) VLDL Cholesterol, Calculated 28 mg/dL (0-40) Non-HDL Cholesterol Calculated 127 mg/dL (0-129) HDL Cholesterol 22 mg/dL (40-60) Cholesterol/HDL Ratio 6.8 Vancomycin Level Trough 22.5 mcg/mL (10.0-20.0) Vancomycin Last Dose Date 01/31/22 Vancomycin Last Dose Time 0800 Test 02/01/22 08:00 White Blood Count 7.4 x10^3/uL (4.0-11.0) Red Blood Count 3.56 x10^6/uL (4.30-5.70) Hemoglobin 12.0 g/dL (13.0-17.5) Hematocrit 36.0 % (39.0-53.0) Mean Corpuscular Volume 101 fL (79-100) Mean Corpuscular Hemoglobin 34 pg (25-35) Mean Corpuscular Hemoglobin Concent 33 g/dL (31-37) Red Cell Distribution Width 17.3 % (11.5-14.5) Platelet Count 252 x10^3/uL (140-400) Neutrophils (%) (Auto) 52 % (31-73) Lymphocytes (%) (Auto) 32 % (24-48) Monocytes (%) (Auto) 13 % (0-9) Eosinophils (%) (Auto) 3 % (0-3) Basophils (%) (Auto) 1 % (0-3) Neutrophils # (Auto) 3.8 x10^3/uL (1.8-7.7) Lymphocytes # (Auto) 2.4 x10^3/uL (1.0-4.8) Monocytes # (Auto) 0.9 x10^3/uL (0.0-1.1) Eosinophils # (Auto) 0.2 x10^3/uL (0.0-0.7) Basophils # (Auto) 0.1 x10^3/uL (0.0-0.2) Laboratory Tests Test 01/31/22 16:00 02/01/22 08:00 Vancomycin Level Trough 22.5 mcg/mL (10.0-20.0) Vancomycin Last Dose Date 01/31/22 Vancomycin Last Dose Time 0800 White Blood Count 7.4 x10^3/uL (4.0-11.0) Red Blood Count 3.56 x10^6/uL (4.30-5.70) Hemoglobin 12.0 g/dL (13.0-17.5) Hematocrit 36.0 % (39.0-53.0) Mean Corpuscular Volume 101 fL (79-100) Mean Corpuscular Hemoglobin 34 pg (25-35) Mean Corpuscular Hemoglobin Concent 33 g/dL (31-37) Red Cell Distribution Width 17.3 % (11.5-14.5) Platelet Count 252 x10^3/uL (140-400) Neutrophils (%) (Auto) 52 % (31-73) Lymphocytes (%) (Auto) 32 % (24-48) Monocytes (%) (Auto) 13 % (0-9) Eosinophils (%) (Auto) 3 % (0-3) Basophils (%) (Auto) 1 % (0-3) Neutrophils # (Auto) 3.8 x10^3/uL (1.8-7.7) Lymphocytes # (Auto) 2.4 x10^3/uL (1.0-4.8) Monocytes # (Auto) 0.9 x10^3/uL (0.0-1.1) Eosinophils # (Auto) 0.2 x10^3/uL (0.0-0.7) Basophils # (Auto) 0.1 x10^3/uL (0.0-0.2) Medications Current Medications Multivitamins 10 ml/Thiamine HCl 100 mg/Folic Acid 1 mg/Sodium Chloride 1,011.2 ml @ 100 mls/ hr DAILY IV Last administered on 02/01/22at 08:23; Start 01/31/22 at 09:00; Stop 02/04/22 at 19:07 Multivitamins (Thera M Plus) 1 tab DAILY PO ; Start 02/04/22 at 09:00 Folic Acid (Folic Acid) 1 mg DAILY PO ; Start 02/04/22 at 09:00 Thiamine HCl (Thiamine Im) 100 mg DAILY IM ; Start 02/04/22 at 09:00; Stop 02/09/22 at 08:59 Lorazepam (Ativan Inj) 2 mg PRN Q1HR PRN IV For CIWA 8-14; Start 01/30/22 at 20:00 Lorazepam (Ativan Inj) 4 mg PRN Q1HR PRN IV For CIWA 15 or greater; Start 01/30/22 at 20:00 Haloperidol Lactate (Haldol Inj) 5 mg PRN Q4HRS PRN IVP Hallu cinatns,Confusn,Delirium; Start 01/30/22 at 20:00 Ondansetron HCl (Zofran) 4 mg PRN Q6HRS PRN IVP NAUSEA/VOMITING 1ST CHOICE; Start 01/30/22 at 21:30 Famotidine (Pepcid Vial) 20 mg BID IVP Last administered on 02/01/22at 08:06; Start 01/31/22 at 09:00 Info (Icu Electrolyte Protocol) 1 ea DAILY MC Last administered on 01/31/22at 09:00; Start 01/31/22 at 09:00 Heparin Sodium (Porcine) (Heparin Sodium) 5,000 unit Q8HRS SQ ; Start 01/30/22 at 22:00; Stop 01/30/22 at 21:47; Status DC Sodium Chloride (Normal Saline Flush) 3 ml QSHIFT PRN IV AFTER MEDS AND BLOOD DRAWS; Start 01/30/22 at 21:30 Senna/Docusate Sodium (Senna Plus) 1 tab BID PO Last administered on 01/31/22at 20:38; Start 01/31/22 at 09:00 Piperacillin Sod/ Tazobactam Sod (Zosyn Per Pharmacy) 1 each PRN DAILY PRN MC SEE COMMENTS; Start 01/30/22 at 22:00 Vancomycin HCl (Vanco Per Pharmacy) 1 each PRN DAILY PRN MC SEE COMMENTS Last administered on 01/31/22at 17:11; Start 01/30/22 at 22:00 Sodium Chloride 1,000 ml @ 125 mls/hr 1X ONCE IV Last administered on 01/30/22at 22:00; Start 01/30/22 at 22:00; Stop 01/31/22 at 05:59; Status DC Potassium Chloride/Water 100 ml @ 100 mls/hr Q1H IV Last administered on 01/31/22at 03:06; Start 01/30/22 at 23:30; Stop 01/31/22 at 04:29; Status DC Piperacillin Sod/ Tazobactam Sod 3.375 gm/Sodium Chloride 50 ml @ 100 mls/hr Q6HRS IV Last administered on 02/01/22at 05:42; Start 01/31/22 at 00:00 Vancomycin HCl 1.25 gm/Sodium Chloride 250 ml @ 167 mls/hr Q8H IV Last administered on 01/31/22at 09:16; Start 01/31/22 at 00:00; Stop 01/31/22 at 17:08; Status DC Vancomycin HCl (Vancomycin Trough Level) 1 each 1X ONCE MC Last administered on 01/31/22at 15:30; Start 01/31/22 at 15:30; Stop 01/31/22 at 15:31; Status DC Potassium Chloride/Water 100 ml @ 100 mls/hr Q1H IV Last administered on 01/31/22at 15:51; Start 01/31/22 at 08:00; Stop 01/31/22 at 15:59; Status DC Vancomycin HCl 1.25 gm/Sodium Chloride 250 ml @ 167 mls/hr Q12H IV Last administered on 02/01/22at 07:00; Start 01/31/22 at 19:00 Vitals/I & O Vital Sign - Last 24 Hours 01/31/22 01/31/22 01/31/22 01/31/22 09:00 10:00 11:00 12:00 Pulse 110 110 110 Resp 20 22 B/P (MAP) 114/69 (84) 120/76 (91) 145/88 (107) Pulse Ox 97 96 96 O2 Delivery Room Air Room Air Room Air Room Air 01/31/22 01/31/22 01/31/22 01/31/22 12:00 13:00 14:00 15:00 Temp 98.6 98.6 Pulse 112 108 106 Resp 23 23 20 25 B/P (MAP) 131/92 (105) 130/74 (92) 161/85 (110) Pulse Ox 97 97 98 O2 Delivery Room Air Room Air Room Air Room Air 01/31/22 01/31/22 01/31/22 01/31/22 16:00 16:00 17:00 18:00 Temp 98.8 98.8 Pulse 106 110 103 Resp 17 19 18 B/P (MAP) 153/98 (116) 131/100 (110) 119/81 (94) Pulse Ox 97 98 97 O2 Delivery Room Air Room Air Room Air Room Air 01/31/22 01/31/22 01/31/22 01/31/22 19:00 20:00 20:00 21:00 Temp 98.2 98.2 Pulse 101 95 103 Resp 18 18 18 B/P (MAP) 105/59 (74) 97/48 (64) 112/51 (71) Pulse Ox 97 96 98 O2 Delivery Room Air Room Air Room Air Room Air 01/31/22 01/31/22 02/01/22 02/01/22 22:00 23:00 00:00 00:00 Temp 98.5 98.5 Pulse 96 96 105 Resp 18 18 18 B/P (MAP) 101/46 (64) 122/69 (86) 138/72 (94) Pulse Ox 96 96 98 O2 Delivery Room Air Room Air Room Air Room Air 02/01/22 02/01/22 02/01/22 02/01/22 01:00 02:00 03:00 04:00 Pulse 103 103 102 Resp 18 18 18 B/P (MAP) 128/74 (92) 119/79 (92) 122/76 (91) Pulse Ox 97 98 96 O2 Delivery Room Air Room Air Room Air Room Air 02/01/22 02/01/22 02/01/22 02/01/22 04:00 05:00 06:00 07:00 Temp 98.4 98.4 Pulse 104 110 102 102 Resp 18 18 18 16 B/P (MAP) 116/66 (83) 143/84 (103) 114/60 (78) 140/83 (102) Pulse Ox 97 97 93 96 O2 Delivery Room Air Room Air Room Air Room Air Intake and Output 01/31/22 01/31/22 02/01/22 15:00 23:00 07:00 Intake Total 50 ml 1522 ml Output Total 2025 ml 1610 ml 850 ml Balance -1975 ml -88 ml -850 ml Images Brain MRI without contrast. HISTORY: Hemorrhagic stroke. TECHNIQUE: Multiplanar, multisequence magnetic resonance imaging of the brain was performed without contrast. COMPARISON: CT dated 01/30/2022. FINDINGS: There are multiple areas of restricted diffusion due to acute infarction involving the left frontal, parietal, temporal and occipital lobes. There is T1 hyperintensity and susceptibility effect due to superimposed hemorrhage within the region of infarction involving the left parietal and temporal lobes. There is minimal effacement of the left lateral ventricle. There is no midline shift. There is no hydrocephalus. There is mild nonspecific signal change within the cerebral white matter, likely due to chronic small vessel disease in a patient of this age. The orbits are unremarkable. The paranasal sinuses are unremarkable. There is minimal mastoid fluid. There are normal flow voids within the cerebral vessels. There is no suspicious calvarial lesion. IMPRESSION: 1. Acute infarcts involving the left frontal, occipital, parietal and temporal lobes, the latter of which are associated with acute hemorrhage. 2. Nonspecific cerebral white matter changes, likely due to chronic small vessel disease. Echocardiogram: LEFT VENTRICLE The left ventricle is normal size. There is normal left ventricular wall thickness. The left ventricular systolic function is normal. The ejection fraction is 65%. There is normal LV segmental wall motion. RIGHT VENTRICLE The right ventricle is normal size. There is normal right ventricular wall thickness. The right ventricular systolic function is normal. ATRIA The left atrium size is normal. The right atrium size is normal. The interatrial septum is intact with no evidence for an atrial septal defect or patent foramen ovale as noted on 2-D or Doppler imaging. AORTIC VALVE The aortic valve is normal in structure and function. Doppler and Color Flow revealed no significant aortic regurgitation. There is no significant aortic valvular stenosis. MITRAL VALVE The mitral valve is normal in structure and function. There is no evidence of mitral valve prolapse. There is no mitral valve stenosis. Doppler and Color Flow revealed no mitral valve regurgitation noted. TRICUSPID VALVE The tricuspid valve is normal in structure and function. Doppler and Color Flow revealed trace tricuspid valve regurgitation. There is no tricuspid valve stenosis. GREAT VESSELS The aortic root is normal in size. The ascending aorta is normal in size. PERICARDIAL EFFUSION There is no evidence of significant pericardial effusion. Critical Notification Critical Value: No <Conclusion> The left ventricular systolic function is normal. The ejection fraction is 65%. There is normal LV segmental wall motion. Trace tricuspid regurgitation. There is no evidence of significant pericardial effusion. Bubble study technically difficult but appears to be negative. Consider ARLYN if clinical suspicion for PFO/ASD is high. Justicifation of Admission Dx: Justifications for Admission: Justification of Admission Dx: Yes Stroke - Ischemic: Stroke-Ischemic ASHOK DILLARD MD Feb 01, 2022 08:46
[2022-02-01 08:52] LABS: CALCIUM 8.2 mg/dL (8.5-10.1); CREATININE 0.9 mg/dL (0.7-1.3); MAGNESIUM 1.3 mg/dL (1.8-2.4)
[2022-02-01] MEDS: ELECTROLYTE (ICU) PROTOCOL. MC SCH (09:00)
[2022-02-01 09:06] LABS: POTASSIUM 2.8 mmol/L (3.5-5.1)
[2022-02-01] MEDS ORDERED: MAGNESIUM SULFATE 4GM 100 ML IV ONE (09:15)
[2022-02-01] MEDS: POTASSIUM CHLORIDE 10MEQ 100 ML IV SCH ×8 (09:33→20:04)
--- NOTE | 2022-02-01 09:58 | PDOC ---
[employer] PROGRESS NOTE Date of Service DOS: DATE: 02/01/22 TIME: 09:56 Chief Complaint Chief Complaint Acute Ischemic Stroke, Seizure 2/2 alcohol w/d?, Lactic acidosis, Alcohol abuse, Unable to care for self, Diffuse wounds -found down at home, unknown how long; imaging showing ischemic stroke with s mall hemorrhagic conversion -stroke and neuro consults --> MRI brain recommended -suspect seizures related to alcohol w/d; lactic acidosis likely 2/2 seizure activity -wound care podiatry consult -CIWA; -fluids -empiric antibiotics; -PT/OT History of Present Illness History of Present Illness 02/01 Evaluate examined at bedside. Was able to keep a conversation sensibly for a few minutes and then started talking about his "Cristina." I could not figure out what this meant. We will look into thyroid mass seen on outside CT scan. Neurology following. Okay to transfer out of ICU. PT OT speech. 01/31 Patient evaluated examined at bedside. In bed notably more alert from overnight. Right-sided deficit is much more apparent with his speech. Did not continue Keppra from outside hospital as suspected seizures were related to alcohol withdrawal. MRI brain ordered. Echo with bubble study. PT OT speech. 45 minutes critical care time. Vitals/I&O Vitals/I&O: Vital Signs Date Time Temp Pulse Resp B/P (MAP) Pulse Ox O2 Delivery O2 Flow Rate FiO2 02/01/22 08:00 98.6 101 18 118/72 (87) 95 Room Air 98.6 I & O 01/31/22 01/31/22 02/01/22 15:00 23:00 07:00 Intake Total 50 ml 1522 ml Output Total 2025 ml 1610 ml 850 ml Balance -1975 ml -88 ml -850 ml Physical Exam General: Alert, Cooperative, No acute distress Heart: Regular rate Lungs: Clear Abdomen: Normal bowel sounds, Soft, No tenderness Extremities: Normal pulses Skin: Other (multiple lesions throughout) Labs Labs: Laboratory Tests Test 01/31/22 16:00 02/01/22 08:00 Vancomycin Level Trough 22.5 mcg/mL (10.0-20.0) Vancomycin Last Dose Date 01/31/22 Vancomycin Last Dose Time 0800 White Blood Count 7.4 x10^3/uL (4.0-11.0) Red Blood Count 3.56 x10^6/uL (4.30-5.70) Hemoglobin 12.0 g/dL (13.0-17.5) Hematocrit 36.0 % (39.0-53.0) Mean Corpuscular Volume 101 fL (79-100) Mean Corpuscular Hemoglobin 34 pg (25-35) Mean Corpuscular Hemoglobin Concent 33 g/dL (31-37) Red Cell Distribution Width 17.3 % (11.5-14.5) Platelet Count 252 x10^3/uL (140-400) Neutrophils (%) (Auto) 52 % (31-73) Lymphocytes (%) (Auto) 32 % (24-48) Monocytes (%) (Auto) 13 % (0-9) Eosinophils (%) (Auto) 3 % (0-3) Basophils (%) (Auto) 1 % (0-3) Neutrophils # (Auto) 3.8 x10^3/uL (1.8-7.7) Lymphocytes # (Auto) 2.4 x10^3/uL (1.0-4.8) Monocytes # (Auto) 0.9 x10^3/uL (0.0-1.1) Eosinophils # (Auto) 0.2 x10^3/uL (0.0-0.7) Basophils # (Auto) 0.1 x10^3/uL (0.0-0.2) Sodium Level 145 mmol/L (136-145) Potassium Level 2.8 mmol/L (3.5-5.1) Chloride Level 100 mmol/L (98-107) Carbon Dioxide Level 28 mmol/L (21-32) Anion Gap 17 (6-14) Blood Urea Nitrogen 2 mg/dL (8-26) Creatinine 0.9 mg/dL (0.7-1.3) Estimated GFR (Cockcroft-Gault) 89.0 Glucose Level 72 mg/dL (70-99) Calcium Level 8.2 mg/dL (8.5-10.1) Magnesium Level 1.3 mg/dL (1.8-2.4) Comment Review of Relevant I have reviewed the following items erwin (where applicable) has been applied. Medications: Current Medications Medications (Trade) Dose Ordered Sig/Warren Route PRN Reason Start Time Stop Time Status Last Admin Dose Admin Vancomycin HCl (Vancomycin Trough Level) 1 each 1X ONCE 01/31/22 15:30 01/31/22 15:31 DC 01/31/22 15:30 Vancomycin HCl 1.25 gm/Sodium Chloride 250 ml @ 167 mls/hr Q12H IV 01/31/22 19:00 02/01/22 07:00 Potassium Chloride/Water 100 ml @ 100 mls/hr Q1H IV 02/01/22 10:00 02/01/22 17:59 02/01/22 09:33 Magnesium Sulfate 100 ml @ 25 mls/hr 1X ONCE IV 02/01/22 09:15 02/01/22 13:14 02/01/22 09:33 Justifications for Admission Other Justification UMANG CANDELARIO MD Feb 01, 2022 09:58
--- NOTE | 2022-02-01 15:25 | NUR ---
SS following up with discharge planning. SS reviewed pt chart and discussed with pt RN. Pt is currently on room air. Pt on IV Zosyn and IV Vancomycin. PT/OT/ST ordered. NPO. PT/OT recommended Acute Rehabilitation. Self pay. Margaret from [employer] [facility] following and has left voicemail for pt's family for further information. Pt transferred to room 673. SS will continue to follow for discharge planning.
--- NOTE | 2022-02-01 15:46 | NUR ---
Patient transported to 673. Repeat NIH completed by this RN and MALIKA Feliciano from 6S. Patient's father, Agus, notified of transfer and given a phone number to the unit to contact.
--- NOTE | 2022-02-01 15:51 | NUR ---
PT ARRIVED IN ROOM. IVF REESTABLISHED. K+ AND BANANA BAG INFUSING AT THIS TIME.
[2022-02-01] MEDS: VANCOMYCIN PER PHARMACY MC PRN ×2 (16:05→19:46)
[2022-02-01 19:18] LABS: VANC TR 16.4 mcg/mL (10.0-20.0)
--- NOTE | 2022-02-01 19:48 | NUR ---
Pharmacy Vancomycin Dosing Note S: Consulted to monitor and dose vancomycin started 01/30/22. O: DOUG VARMA is a 51 year old M with empiric therapy for lactic acidosis, wound coverage. Other Antibiotics: ZOSYN 3.375 GM Q6H LABS: Last BUN: 12 Last Creatinine: 0.8 Creatinine Clearance: > 100 mL/min Last WBC: 7.3 Last Procalcitonin: Tmax (past 24 hours): 98.6 Microbiology: BLOOD CX (3-13 @ [facility]): NGTD I/O: 600/925 Drug Levels: Last Trough level: 16.4 on 02/01/22 at 1830 Last dose given 02/01/22 at 0700 Vancomycin Dosing: Dosing Weight: Actual Target Trough: 10-20 A: Patient is receiving vancomycin 1250 mg IV q18hrs. A trough of 16.4 mcg/ml is within goal range. Patient's renal function remains stable. P: 1. Continue Vancomycin 1250 mg IV q12h. 2. Follow up trough in 5 - 7 days if therapy persists. 3. Pharmacy will continue to monitor, follow and adjust therapy as needed. AILYN JUAN, [facility], 02/01/22 1948
[2022-02-02] MEDS: PIPERACILLIN/TAZOBACTAM 3.375 GM in IV NORMAL SALINE 50ML 50 ML IV SCH ×2 (00:16→05:07)
[2022-02-02 02:50] VITALS: BP 137/86
[2022-02-02 04:38] LABS: CALCIUM 8.2 mg/dL (8.5-10.1); GFR 78.8; MAGNESIUM 1.8 mg/dL (1.8-2.4); POTASSIUM 3.5 mmol/L (3.5-5.1)
[2022-02-02] MEDS: VANCOMYCIN 1.25 GM in IV NORMAL SALINE 250ML 250 ML IV SCH (06:21)
[2022-02-02 07:00] VITALS: BP 134/82
[2022-02-02] MEDS: SENNOSIDES/DOCUSATE 8.6/50MG TABLET. PO SCH ×2 (08:04→19:58)
[2022-02-02] MEDS: FAMOTIDINE 20 MG/2 ML VIAL IVP SCH ×2 (08:37→21:05)
--- NOTE | 2022-02-02 08:45 | PDOC ---
PROGRESS NOTES Date of Service DATE: 02/02/22 TIME: 08:42 Assessment Multiple small infarcts in the left hemisphere with some hemorrhagic transformation, but without significant mass effect. Left internal carotid artery 50% stenosis Cervical spondylosis Abnormal CT abdomen Thyroid mass Alcoholism Favorable lipid profile Dysphagia, failed swallow study Plan Rehabilitation modalities Management of abnormal CT abdomen and thyroid mass per internal medicine Alcohol withdrawal protocol Holding aspirin because of the hemorrhagic transformation of the strokes as well as n.p.o. status, aim to start it next week He may need an NG tube or PEG Subjective Wants to eat Objective Vital Signs Date Time Temp Pulse Resp B/P (MAP) Pulse Ox O2 Delivery O2 Flow Rate FiO2 02/02/22 07:00 97.3 95 16 134/82 (99) 96 Room Air 97.3 Intake and Output 02/02/22 07:00 Intake Total 1100 ml Output Total 2650 ml Balance -1550 ml Intake Oral 0 ml IV Total 1100 ml Output Urine Total 2650 ml Stool Total 0 ml # Bowel Movements 1 PHYSICAL EXAM Alert. Expressive aphasia, follows some commands, quite a bit of intelligible speech PERRL. EOMI. CN: Right visual field cut, right central facial weakness Muscle tone: normal. Muscle strength: 4/5 right hemiparesis DTR: 2+ Plantar reflex: Flexor Gait: not examined in bed. Sensory exam: no abnormal findings. No cerebellar signs elicited out of proportion to weakness. Review of Relevant I have reviewed the following items ewrin (where applicable) has been applied. Labs Laboratory Tests Test 01/31/22 16:00 02/01/22 08:00 02/01/22 18:30 02/01/22 23:10 Vancomycin Level Trough 22.5 mcg/mL (10.0-20.0) 16.4 mcg/mL (10.0-20.0) Vancomycin Last Dose Date 01/31/22 02/01/22 Vancomycin Last Dose Time 0800 0700 White Blood Count 7.4 x10^3/uL (4.0-11.0) Red Blood Count 3.56 x10^6/uL (4.30-5.70) Hemoglobin 12.0 g/dL (13.0-17.5) Hematocrit 36.0 % (39.0-53.0) Mean Corpuscular Volume 101 fL (79-100) Mean Corpuscular Hemoglobin 34 pg (25-35) Mean Corpuscular Hemoglobin Concent 33 g/dL (31-37) Red Cell Distribution Width 17.3 % (11.5-14.5) Platelet Count 252 x10^3/uL (140-400) Neutrophils (%) (Auto) 52 % (31-73) Lymphocytes (%) (Auto) 32 % (24-48) Monocytes (%) (Auto) 13 % (0-9) Eosinophils (%) (Auto) 3 % (0-3) Basophils (%) (Auto) 1 % (0-3) Neutrophils # (Auto) 3.8 x10^3/uL (1.8-7.7) Lymphocytes # (Auto) 2.4 x10^3/uL (1.0-4.8) Monocytes # (Auto) 0.9 x10^3/uL (0.0-1.1) Eosinophils # (Auto) 0.2 x10^3/uL (0.0-0.7) Basophils # (Auto) 0.1 x10^3/uL (0.0-0.2) Sodium Level 145 mmol/L (136-145) Potassium Level 2.8 mmol/L (3.5-5.1) 3.7 mmol/L (3.5-5.1) Chloride Level 100 mmol/L (98-107) Carbon Dioxide Level 28 mmol/L (21-32) Anion Gap 17 (6-14) Blood Urea Nitrogen 2 mg/dL (8-26) Creatinine 0.9 mg/dL (0.7-1.3) Estimated GFR (Cockcroft-Gault) 89.0 Glucose Level 72 mg/dL (70-99) Calcium Level 8.2 mg/dL (8.5-10.1) Magnesium Level 1.3 mg/dL (1.8-2.4) Test 02/02/22 02:55 Sodium Level 146 mmol/L (136-145) Potassium Level 3.5 mmol/L (3.5-5.1) Chloride Level 103 mmol/L (98-107) Carbon Dioxide Level 28 mmol/L (21-32) Anion Gap 15 (6-14) Blood Urea Nitrogen 2 mg/dL (8-26) Creatinine 1.0 mg/dL (0.7-1.3) Estimated GFR (Cockcroft-Gault) 78.8 Glucose Level 72 mg/dL (70-99) Calcium Level 8.2 mg/dL (8.5-10.1) Magnesium Level 1.8 mg/dL (1.8-2.4) Laboratory Tests Test 02/01/22 18:30 02/01/22 23:10 02/02/22 02:55 Vancomycin Level Trough 16.4 mcg/mL (10.0-20.0) Vancomycin Last Dose Date 02/01/22 Vancomycin Last Dose Time 0700 Potassium Level 3.7 mmol/L (3.5-5.1) 3.5 mmol/L (3.5-5.1) Sodium Level 146 mmol/L (136-145) Chloride Level 103 mmol/L (98-107) Carbon Dioxide Level 28 mmol/L (21-32) Anion Gap 15 (6-14) Blood Urea Nitrogen 2 mg/dL (8-26) Creatinine 1.0 mg/dL (0.7-1.3) Estimated GFR (Cockcroft-Gault) 78.8 Glucose Level 72 mg/dL (70-99) Calcium Level 8.2 mg/dL (8.5-10.1) Magnesium Level 1.8 mg/dL (1.8-2.4) Medications Current Medications Multivitamins 10 ml/Thiamine HCl 100 mg/Folic Acid 1 mg/Sodium Chloride 1,011.2 ml @ 100 mls/ hr DAILY IV Last administered on 02/01/22at 08:23; Start 01/31/22 at 09:00; Stop 02/04/22 at 19:07 Multivitamins (Thera M Plus) 1 tab DAILY PO ; Start 02/04/22 at 09:00 Folic Acid (Folic Acid) 1 mg DAILY PO ; Start 02/04/22 at 09:00 Thiamine HCl (Thiamine Im) 100 mg DAILY IM ; Start 02/04/22 at 09:00; Stop 02/09/22 at 08:59 Lorazepam (Ativan Inj) 2 mg PRN Q1HR PRN IV For CIWA 8-14; Start 01/30/22 at 20:00 Lorazepam (Ativan Inj) 4 mg PRN Q1HR PRN IV For CIWA 15 or greater; Start 01/30/22 at 20:00 Haloperidol Lactate (Haldol Inj) 5 mg PRN Q4HRS PRN IVP Hallucinatns,Confusn,Delirium; Start 01/30/22 at 20:00 Ondansetron HCl (Zofran) 4 mg PRN Q6HRS PRN IVP NAUSEA/VOMITING 1ST CHOICE; Start 01/30/22 at 21:30 Famotidine (Pepcid Vial) 20 mg BID IVP Last administered on 02/02/22at 08:37; Start 01/31/22 at 09:00 Info (Icu Electrolyte Protocol) 1 ea DAILY MC Last administered on 02/01/22at 09:00; Start 01/31/22 at 09:00; Stop 02/02/22 at 08:35; Status DC Heparin Sodium (Porcine) (Heparin Sodium) 5,000 unit Q8HRS SQ ; Start 01/30/22 at 22:00; Stop 01/30/22 at 21:47; Status DC Sodium Chloride (Normal Saline Flush) 3 ml QSHIFT PRN IV AFTER MEDS AND BLOOD DRAWS; Start 01/30/22 at 21:30 Senna/Docusate Sodium (Senna Plus) 1 tab BID PO Last administered on 01/31/22at 20:38; Start 01/31/22 at 09:00 Piperacillin Sod/ Tazobactam Sod (Zosyn Per Pharmacy) 1 each PRN DAILY PRN MC SEE COMMENTS; Start 01/30/22 at 22:00 Vancomycin HCl (Vanco Per Pharmacy) 1 each PRN DAILY PRN MC SEE COMMENTS Last administered on 02/01/22at 19:46; Start 01/30/22 at 22:00 Sodium Chloride 1,000 ml @ 125 mls/hr 1X ONCE IV Last administered on 01/30/22at 22:00; Start 01/30/22 at 22:00; Stop 01/31/22 at 05:59; Status DC Potassium Chloride/Water 100 ml @ 100 mls/hr Q1H IV Last administered on 01/31/22at 03:06; Start 01/30/22 at 23:30; Stop 01/31/22 at 04:29; Status DC Piperacillin Sod/ Tazobactam Sod 3.375 gm/Sodium Chloride 50 ml @ 100 mls/hr Q6HRS IV Last administered on 02/02/22at 05:07; Start 01/31/22 at 00:00 Vancomycin HCl 1.25 gm/Sodium Chloride 250 ml @ 167 mls/hr Q8H IV Last administered on 01/31/22at 09:16; Start 01/31/22 at 00:00; Stop 01/31/22 at 17:08; Status DC Vancomycin HCl (Vancomycin Trough Level) 1 each 1X ONCE MC Last administered on 01/31/22at 15:30; Start 01/31/22 at 15:30; Stop 01/31/22 at 15:31; Status DC Potassium Chloride/Water 100 ml @ 100 mls/hr Q1H IV Last administered on 01/31/22at 15:51; Start 01/31/22 at 08:00; Stop 01/31/22 at 15:59; Status DC Vancomycin HCl 1.25 gm/Sodium Chloride 250 ml @ 167 mls/hr Q12H IV Last administered on 02/02/22at 06:21; Start 01/31/22 at 19:00 Potassium Chloride/Water 100 ml @ 100 mls/hr Q1H IV Last administered on 02/01/22at 20:04; Start 02/01/22 at 10:00; Stop 02/01/22 at 17:59; Status DC Magnesium Sulfate 100 ml @ 25 mls/hr 1X ONCE IV Last administered on 02/01/22at 09:33; Start 02/01/22 at 09:15; Stop 02/01/22 at 13:14; Status DC Vancomycin HCl (Vancomycin Trough Level) 1 each 1X ONCE MC Last administered on 02/01/22at 18:30; Start 02/01/22 at 18:30; Stop 02/01/22 at 18:31; Status DC Vitals/I & O Vital Sign - Last 24 Hours 02/01/22 02/01/22 02/01/22 02/01/22 12:00 15:38 18:50 20:00 Temp 98.4 98.5 98.6 98.4 98.5 98.6 Pulse 93 99 98 Resp 18 18 18 B/P (MAP) 149/81 (103) 134/82 (99) 132/76 (94) Pulse Ox 94 96 95 O2 Delivery Room Air Room Air Room Air Room Air 02/01/22 02/02/22 02/02/22 22:22 02:50 07:00 Temp 97.9 98.6 97.3 97.9 98.6 97.3 Pulse 98 96 95 Resp 18 16 16 B/P (MAP) 135/84 (101) 137/86 (103) 134/82 (99) Pulse Ox 96 97 96 O2 Delivery Room Air Room Air Room Air Intake and Output 02/01/22 02/01/22 02/02/22 15:00 23:00 07:00 Intake Total 600 ml 450 ml 50 ml Output Total 425 ml 500 ml 1725 ml Balance 175 ml -50 ml -1675 ml Justicifation of Admission Dx: Justifications for Admission: Justification of Admission Dx: Yes Stroke - Ischemic: Stroke-Ischemic ASHOK DILLARD MD Feb 02, 2022 08:45
[2022-02-02] MEDS: MULTIVIT INFUSN,ADULT 4,VIT K 10 ML, THIAMINE INJ 100 MG, FOLIC ACID INJ 1 MG in IV NOR... IV SCH (09:00)
--- NOTE | 2022-02-02 10:33 | PDOC ---
[employer] PROGRESS NOTE Date of Service DOS: DATE: 02/02/22 TIME: 10:31 Chief Complaint Chief Complaint Stroke with some hemorrhagic transformation's Found down Seizures Lactic acidosis Unable to care for self Left carotid disease Thyroid mass Alcohol abuse Dysphagia Expressive aphasia History of Present Illness History of Present Illness 02/02/2022 Patient seen and examined He has a expressive aphasia His toenails are very long and his hygiene is poor Has a mitt on his left hand for his safety Discussed with his nurse Discussed with case management Chart reviewed 02/01 Evaluate examined at bedside. Was able to keep a conversation sensibly for a few minutes and then started talking about his "Cristina." I could not figure out what this meant. We will look into thyroid mass seen on outside CT scan. Neurology following. Okay to transfer out of ICU. PT OT speech. 01/31 Patient evaluated examined at bedside. In bed notably more alert from overnight. Right-sided deficit is much more apparent with his speech. Did not continue Keppra from outside hospital as suspected seizures were related to alcohol withdrawal. MRI brain ordered. Echo with bubble study. PT OT speech. 45 minutes critical care time. Vitals/I&O Vitals/I&O: Vital Signs Date Time Temp Pulse Resp B/P (MAP) Pulse Ox O2 Delivery O2 Flow Rate FiO2 02/02/22 07:00 97.3 95 16 134/82 (99) 96 Room Air 97.3 I & O 02/01/22 02/01/22 02/02/22 15:00 23:00 07:00 Intake Total 600 ml 450 ml 50 ml Output Total 425 ml 500 ml 1725 ml Balance 175 ml -50 ml -1675 ml Physical Exam General: Alert, Cooperative, No acute distress Heart: Regular rate Lungs: Clear Abdomen: Normal bowel sounds, Soft, No tenderness Extremities: Normal pulses Skin: Other (multiple lesions throughout) Labs Labs: Laboratory Tests Test 02/01/22 18:30 02/01/22 23:10 02/02/22 02:55 Vancomycin Level Trough 16.4 mcg/mL (10.0-20.0) Vancomycin Last Dose Date 02/01/22 Vancomycin Last Dose Time 0700 Potassium Level 3.7 mmol/L (3.5-5.1) 3.5 mmol/L (3.5-5.1) Sodium Level 146 mmol/L (136-145) Chloride Level 103 mmol/L (98-107) Carbon Dioxide Level 28 mmol/L (21-32) Anion Gap 15 (6-14) Blood Urea Nitrogen 2 mg/dL (8-26) Creatinine 1.0 mg/dL (0.7-1.3) Estimated GFR (Cockcroft-Gault) 78.8 Glucose Level 72 mg/dL (70-99) Calcium Level 8.2 mg/dL (8.5-10.1) Magnesium Level 1.8 mg/dL (1.8-2.4) Assessment and Plan Assessmemt and Plan Stroke with some hemorrhagic transformation's Found down Probable alcohol withdrawal seizures Lactic acidosis Unable to care for self Left carotid disease Thyroid mass Alcohol abuse Dysphagia Expressive aphasia Plan PT OT speech therapy We are holding his aspirin due to hemorrhagic transformation He is going to need jail and perhaps even long-term care? I discussed with social security assessor we are trying to get him Medicaid Home meds I ordered a TSH and a free T4 DVT prophylaxis Full code Long-term prognosis guarded Appreciate neurology input Per neurology recommendations please see the following and we certainly agree and appreciate their input; Multiple small infarcts in the left hemisphere with some hemorrhagic transformation, but without significant mass effect. Left internal carotid artery 50% stenosis Cervical spondylosis Abnormal CT abdomen Thyroid mass Alcoholism Favorable lipid profile Dysphagia, failed swallow study Plan Rehabilitation modalities Management of abnormal CT abdomen and thyroid mass per internal medicine Alcohol withdrawal protocol Holding aspirin because of the hemorrhagic transformation of the strokes as well as n.p.o. status, aim to start it next week He may need an NG tube or PEG Comment Review of Relevant I have reviewed the following items erwin (where applicable) has been applied. Medications: Current Medications Medications (Trade) Dose Ordered Sig/Warren Route PRN Reason Start Time Stop Time Status Last Admin Dose Admin Vancomycin HCl (Vancomycin Trough Level) 1 each 1X ONCE MC 02/01/22 18:30 02/01/22 18:31 DC 02/01/22 18:30 Justifications for Admission Other Justification DEMETRI VASQUEZ III DO Feb 02, 2022 10:33
[2022-02-02 10:58] VITALS: BP 147/74
[2022-02-02] MEDS: POTASSIUM CHLORIDE 10MEQ 100 ML IV SCH ×4 (11:30→15:00)
--- NOTE | 2022-02-02 12:08 | NUR ---
SS following up with discharge planning. SS reviewed pt chart and discussed with pt RN. Pt is currently on room air. Neurology and wound care following. NPO. ST following. PT/OT recommended acute rehabilitation. Self pay. [facility] following. Pt's dad has appointment with Margaret from [employer] [facility] tomorrow, 02/03/2022, to discuss disability/medicaid. Not ready. SS will continue to follow for discharge planning.
[2022-02-02 15:03] VITALS: BP 135/84
[2022-02-02 19:23] VITALS: BP 124/77
[2022-02-02 22:35] VITALS: BP 142/77
[2022-02-03 03:02] VITALS: BP 145/69
[2022-02-03 07:00] VITALS: BP 137/86
[2022-02-03] MEDS: SENNOSIDES/DOCUSATE 8.6/50MG TABLET. PO SCH ×2 (07:12→21:00)
[2022-02-03] MEDS: FAMOTIDINE 20 MG/2 ML VIAL IVP SCH ×2 (08:11→21:37)
[2022-02-03] MEDS: MULTIVIT INFUSN,ADULT 4,VIT K 10 ML, THIAMINE INJ 100 MG, FOLIC ACID INJ 1 MG in IV NOR... IV SCH (08:50)
[2022-02-03 10:48] VITALS: BP 151/88
--- NOTE | 2022-02-03 10:57 | NUR ---
Communication Evaluation completed. Please refer to intervention section for full report. Moderate receptive and expressive aphasia apparent in bedside communication evaluation characterized by pharaphasias, word finding errors, perseveration. Limited to following simple basic directions with model. RECOMMENDATIONS: Continue speech language treatment while in hospital and at discharge location.
--- NOTE | 2022-02-03 10:59 | NUR ---
SS following up with discharge planning. SS reviewed pt chart and discussed with pt RN. Pt is currently on room air. PO diet. Pt continuing to work with PT/OT and showing some improvements. Self pay. [facility] following. Margaret in [facility] meeting with family today to discuss disability/medicaid. SS will continue to follow for discharge planning.
--- NOTE | 2022-02-03 11:05 | PDOC ---
[employer] PROGRESS NOTE Date of Service DOS: DATE: 02/03/22 TIME: 11:04 Chief Complaint Chief Complaint Stroke with some hemorrhagic transformation's Found down Seizures Lactic acidosis Unable to care for self Left carotid disease Thyroid mass Alcohol abuse Dysphagia Expressive aphasia History of Present Illness History of Present Illness 02/04/2020 Patient seen and examined Discussed with case management Discussed with RN Discussed with speech therapy Patient is actually speaking much better today He is able to swallow thickened liquids pretty well His stroke symptoms are improving but he still has a lot of residual effect 02/02/2022 Patient seen and examined He has a expressive aphasia His toenails are very long and his hygiene is poor Has a mitt on his left hand for his safety Discussed with his nurse Discussed with case management Chart reviewed 02/01 Evaluate examined at bedside. Was able to keep a conversation sensibly for a few minutes and then started talking about his "Cristina." I could not figure out what this meant. We will look into thyroid mass seen on outside CT scan. Neurology following. Okay to transfer out of ICU. PT OT speech. 01/31 Patient evaluated examined at bedside. In bed notably more alert from overnight. Right-sided deficit is much more apparent with his speech. Did not continue Keppra from outside hospital as suspected seizures were related to alcohol withdrawal. MRI brain ordered. Echo with bubble study. PT OT speech. 45 minutes critical care time. Vitals/I&O Vitals/I&O: Vital Signs Date Time Temp Pulse Resp B/P (MAP) Pulse Ox O2 Delivery O2 Flow Rate FiO2 02/03/22 10:48 98.6 105 18 151/88 (109) 94 Room Air 98.6 I & O 02/02/22 02/02/22 02/03/22 15:00 23:00 07:00 Intake Total 0 ml 120 ml 360 ml Output Total 600 ml 600 ml 1600 ml Balance -600 ml -480 ml -1240 ml Physical Exam General: Alert, Cooperative, No acute distress Heart: Regular rate Lungs: Clear Abdomen: Normal bowel sounds, Soft, No tenderness Extremities: Normal pulses Skin: Other (multiple lesions throughout) Assessment and Plan Assessmemt and Plan Assessmemt and Plan Stroke with some hemorrhagic transformation's Found down Probable alcohol withdrawal seizures Lactic acidosis Unable to care for self Left carotid disease Thyroid mass Alcohol abuse Dysphagia Expressive aphasia Plan PT OT speech therapy We are holding his aspirin due to hemorrhagic transformation He is going to need residential and perhaps even long-term care? I discussed with social media project manager we are trying to get him Medicaid Home meds Dysphagia 2 with honey thickened liquids I ordered a TSH and a free T4 DVT prophylaxis Full code Long-term prognosis guarded Appreciate neurology input Comment Review of Relevant I have reviewed the following items erwin (where applicable) has been applied. Medications: Current Medications Medications (Trade) Dose Ordered Sig/Warren Route PRN Reason Start Time Stop Time Status Last Admin Dose Admin Potassium Chloride/Water 100 ml @ 100 mls/hr Q1H IV 02/02/22 12:00 02/02/22 15:59 DC 02/02/22 15:00 Justifications for Admission Other Justification DEMETRI VASQUEZ III DO Feb 03, 2022 11:05
[2022-02-03 11:19] LABS: CALCIUM 8.6 mg/dL (8.5-10.1); GFR 78.8; POTASSIUM 3.4 mmol/L (3.5-5.1)
[2022-02-03] MEDS: POTASSIUM CHLORIDE 10MEQ 100 ML IV SCH ×4 (12:49→16:00)
--- NOTE | 2022-02-03 13:31 | PDOC ---
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 Left internal carotid artery 50% stenosis Cervical spondylosis Abnormal CT abdomen Thyroid mass Alcoholism Favorable lipid profile Dysphagia, passed swallow study Plan Rehabilitation modalities Management of abnormal CT abdomen and thyroid mass per internal medicine Alcohol withdrawal protocol Aim to start ASA next week Objective Vital Signs Date Time Temp Pulse Resp B/P (MAP) Pulse Ox O2 Delivery O2 Flow Rate FiO2 02/03/22 10:48 98.6 105 18 151/88 (109) 94 Room Air 98.6 Intake and Output 02/03/22 07:00 Intake Total 480 ml Output Total 2800 ml Balance -2320 ml Intake Oral 480 ml Output Urine Total 2800 ml # Bowel Movements 1 PHYSICAL EXAM Alert. Expressive aphasia, follows some commands, quite a bit of intelligible speech PERRL. EOMI. CN: Right visual field cut, right central facial weakness Muscle tone: normal. Muscle strength: 4/5 right hemiparesis DTR: 2+ Plantar reflex: Flexor Gait: not examined in bed. Sensory exam: no abnormal findings. No cerebellar signs elicited out of proportion to weakness. Review of Relevant I have reviewed the following items erwin (where applicable) has been applied. Labs Laboratory Tests Test 02/01/22 18:30 02/01/22 23:10 02/02/22 02:55 02/03/22 10:54 Vancomycin Level Trough 16.4 mcg/mL (10.0-20.0) Vancomycin Last Dose Date 02/01/22 Vancomycin Last Dose Time 0700 Potassium Level 3.7 mmol/L (3.5-5.1) 3.5 mmol/L (3.5-5.1) 3.4 mmol/L (3.5-5.1) Sodium Level 146 mmol/L (136-145) 141 mmol/L (136-145) Chloride Level 103 mmol/L (98-107) 104 mmol/L (98-107) Carbon Dioxide Level 28 mmol/L (21-32) 32 mmol/L (21-32) Anion Gap 15 (6-14) 5 (6-14) Blood Urea Nitrogen 2 mg/dL (8-26) 2 mg/dL (8-26) Creatinine 1.0 mg/dL (0.7-1.3) 1.0 mg/dL (0.7-1.3) Estimated GFR (Cockcroft-Gault) 78.8 78.8 Glucose Level 72 mg/dL (70-99) 153 mg/dL (70-99) Calcium Level 8.2 mg/dL (8.5-10.1) 8.6 mg/dL (8.5-10.1) Magnesium Level 1.8 mg/dL (1.8-2.4) Thyroid Stimulating Hormone (TSH) 3.030 uIU/mL (0.358-3.74) Laboratory Tests Test 02/03/22 10:54 Sodium Level 141 mmol/L (136-145) Potassium Level 3.4 mmol/L (3.5-5.1) Chloride Level 104 mmol/L (98-107) Carbon Dioxide Level 32 mmol/L (21-32) Anion Gap 5 (6-14) Blood Urea Nitrogen 2 mg/dL (8-26) Creatinine 1.0 mg/dL (0.7-1.3) Estimated GFR (Cockcroft-Gault) 78.8 Glucose Level 153 mg/dL (70-99) Calcium Level 8.6 mg/dL (8.5-10.1) Medications Current Medications Multivitamins 10 ml/Thiamine HCl 100 mg/Folic Acid 1 mg/Sodium Chloride 1,011.2 ml @ 100 mls/ hr DAILY IV Last administered on 02/03/22at 08:50; Start 01/31/22 at 09:00; Stop 02/04/22 at 19:07 Multivitamins (Thera M Plus) 1 tab DAILY PO ; Start 02/04/22 at 09:00 Folic Acid (Folic Acid) 1 mg DAILY PO ; Start 02/04/22 at 09:00 Thiamine HCl (Thiamine Im) 100 mg DAILY IM ; Start 02/04/22 at 09:00; Stop 02/09/22 at 08:59 Lorazepam (Ativan Inj) 2 mg PRN Q1HR PRN IV For CIWA 8-14; Start 01/30/22 at 20:00 Lorazepam (Ativan Inj) 4 mg PRN Q1HR PRN IV For CIWA 15 or greater; Start 01/30/22 at 20:00 Haloperidol Lactate (Haldol Inj) 5 mg PRN Q4HRS PRN IVP Hallucinatns,Confusn,Delirium; Start 01/30/22 at 20:00 Ondansetron HCl (Zofran) 4 mg PRN Q6HRS PRN IVP NAUSEA/VOMITING 1ST CHOICE; Start 01/30/22 at 21:30 Famotidine (Pepcid Vial) 20 mg BID IVP Last administered on 02/03/22at 08:11; Start 01/31/22 at 09:00 Info (Icu Electrolyte Protocol) 1 ea DAILY MC Last administered on 02/01/22at 09:00; Start 01/31/22 at 09:00; Stop 02/02/22 at 08:35; Status DC Heparin Sodium (Porcine) (Heparin Sodium) 5,000 unit Q8HRS SQ ; Start 01/30/22 at 22:00; Stop 01/30/22 at 21:47; Status DC Sodium Chloride (Normal Saline Flush) 3 ml QSHIFT PRN IV AFTER MEDS AND BLOOD DRAWS; Start 01/30/22 at 21:30 Senna/Docusate Sodium (Senna Plus) 1 tab BID PO Last administered on 01/31/22at 20:38; Start 01/31/22 at 09:00 Piperacillin Sod/ Tazobactam Sod (Zosyn Per Pharmacy) 1 each PRN DAILY PRN MC SEE COMMENTS; Start 01/30/22 at 22:00; Stop 02/02/22 at 10:55; Status DC Vancomycin HCl (Vanco Per Pharmacy) 1 each PRN DAILY PRN MC SEE COMMENTS Last administered on 02/01/22at 19:46; Start 01/30/22 at 22:00; Stop 02/02/22 at 10:55; Status DC Sodium Chloride 1,000 ml @ 125 mls/hr 1X ONCE IV Last administered on 01/30/22at 22:00; Start 01/30/22 at 22:00; Stop 01/31/22 at 05:59; Status DC Potassium Chloride/Water 100 ml @ 100 mls/hr Q1H IV Last administered on 01/31/22at 03:06; Start 01/30/22 at 23:30; Stop 01/31/22 at 04:29; Status DC Piperacillin Sod/ Tazobactam Sod 3.375 gm/Sodium Chloride 50 ml @ 100 mls/hr Q6HRS IV Last administered on 02/02/22at 05:07; Start 01/31/22 at 00:00; Stop 02/02/22 at 10:55; Status DC Vancomycin HCl 1.25 gm/Sodium Chloride 250 ml @ 167 mls/hr Q8H IV Last administered on 01/31/22at 09:16; Start 01/31/22 at 00:00; Stop 01/31/22 at 17:08; Status DC Vancomycin HCl (Vancomycin Trough Level) 1 each 1X ONCE MC Last administered on 01/31/22at 15:30; Start 01/31/22 at 15:30; Stop 01/31/22 at 15:31; Status DC Potassium Chloride/Water 100 ml @ 100 mls/hr Q1H IV Last administered on 01/31/22at 15:51; Start 01/31/22 at 08:00; Stop 01/31/22 at 15:59; Status DC Vancomycin HCl 1.25 gm/Sodium Chloride 250 ml @ 167 mls/hr Q12H IV Last administered on 02/02/22at 06:21; Start 01/31/22 at 19:00; Stop 02/02/22 at 10:55; Status DC Potassium Chloride/Water 100 ml @ 100 mls/hr Q1H IV Last administered on 02/01/22at 20:04; Start 02/01/22 at 10:00; Stop 02/01/22 at 17:59; Status DC Magnesium Sulfate 100 ml @ 25 mls/hr 1X ONCE IV Last administered on 02/01/22at 09:33; Start 02/01/22 at 09:15; Stop 02/01/22 at 13:14; Status DC Vancomycin HCl (Vancomycin Trough Level) 1 each 1X ONCE MC Last administered on 02/01/22at 18:30; Start 02/01/22 at 18:30; Stop 02/01/22 at 18:31; Status DC Potassium Chloride/Water 100 ml @ 100 mls/hr Q1H IV Last administered on 02/02/22at 15:00; Start 02/02/22 at 12:00; Stop 02/02/22 at 15:59; Status DC Potassium Chloride/Water 100 ml @ 100 mls/hr Q1H IV Last administered on 02/03/22at 12:49; Start 02/03/22 at 13:00; Stop 02/03/22 at 16:59 Vitals/I & O Vital Sign - Last 24 Hours 02/02/22 02/02/22 02/02/22 02/02/22 15:03 19:23 20:00 22:35 Temp 98.7 98.6 99.0 98.7 98.6 99.0 Pulse 115 100 106 Resp 18 18 18 B/P (MAP) 135/84 (101) 124/77 (93) 142/77 (98) Pulse Ox 94 93 94 O2 Delivery Room Air Room Air Room Air Room Air 02/03/22 02/03/22 02/03/22 02/03/22 03:02 07:00 08:00 10:48 Temp 98.1 98.1 98.6 98.1 98.1 98.6 Pulse 103 97 105 Resp 18 18 B/P (MAP) 145/69 (94) 137/86 (103) 151/88 (109) Pulse Ox 94 94 94 O2 Delivery Room Air Room Air Room Air Room Air Intake and Output 02/02/22 02/02/22 02/03/22 15:00 23:00 07:00 Intake Total 0 ml 120 ml 360 ml Output Total 600 ml 600 ml 1600 ml Balance -600 ml -480 ml -1240 ml Justicifation of Admission Dx: Justifications for Admission: Justification of Admission Dx: Yes Stroke - Ischemic: Stroke-Ischemic ASHOK DILLARD MD Feb 03, 2022 13:31
[2022-02-03 15:31] VITALS: BP 150/94
[2022-02-03 19:17] VITALS: BP 142/84
[2022-02-03 22:25] VITALS: BP 137/81
[2022-02-04 02:02] VITALS: BP 142/87
[2022-02-04 05:16] LABS: CALCIUM 8.6 mg/dL (8.5-10.1); CREATININE 0.9 mg/dL (0.7-1.3); POTASSIUM 3.2 mmol/L (3.5-5.1)
[2022-02-04 07:00] VITALS: BP 153/85
--- NOTE | 2022-02-04 08:47 | PDOC ---
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 Left internal carotid artery 50% stenosis Cervical spondylosis Abnormal CT abdomen Thyroid mass Alcoholism Favorable lipid profile Dysphagia, passed swallow study Plan Rehabilitation modalities Management of abnormal CT abdomen and thyroid mass per internal medicine Alcohol withdrawal protocol Aim to start ASA next week Subjective Complains about the food Objective Vital Signs Date Time Temp Pulse Resp B/P (MAP) Pulse Ox O2 Delivery O2 Flow Rate FiO2 02/04/22 07:00 98.2 110 18 153/85 (107) 96 Room Air 98.2 Intake and Output0 02/04/22 07:00 Intake Total 960 ml Output Total 300 ml Balance 660 ml Intake Oral 960 ml Output Urine Total 300 ml # Voids 5 # Bowel Movements 2 PHYSICAL EXAM Alert. Expressive aphasia, follows some commands, quite a bit of intelligible speech PERRL. EOMI. CN: Right visual field cut, right central facial weakness Muscle tone: normal. Muscle strength: 4/5 right hemiparesis DTR: 2+ Plantar reflex: Flexor Gait: not examined in bed. Sensory exam: no abnormal findings. No cerebellar signs elicited out of proportion to weakness. Review of Relevant I have reviewed the following items erwin (where applicable) has been applied. Labs Laboratory Tests Test 02/03/22 10:54 02/04/22 04:00 Sodium Level 141 mmol/L (136-145) 143 mmol/L (136-145) Potassium Level 3.4 mmol/L (3.5-5.1) 3.2 mmol/L (3.5-5.1) Chloride Level 104 mmol/L (98-107) 105 mmol/L (98-107) Carbon Dioxide Level 32 mmol/L (21-32) 32 mmol/L (21-32) Anion Gap 5 (6-14) 6 (6-14) Blood Urea Nitrogen 2 mg/dL (8-26) 2 mg/dL (8-26) Creatinine 1.0 mg/dL (0.7-1.3) 0.9 mg/dL (0.7-1.3) Estimated GFR (Cockcroft-Gault) 78.8 89.0 Glucose Level 153 mg/dL (70-99) 111 mg/dL (70-99) Calcium Level 8.6 mg/dL (8.5-10.1) 8.6 mg/dL (8.5-10.1) Laboratory Tests Test 02/03/22 10:54 02/04/22 04:00 Sodium Level 141 mmol/L (136-145) 143 mmol/L (136-145) Potassium Level 3.4 mmol/L (3.5-5.1) 3.2 mmol/L (3.5-5.1) Chloride Level 104 mmol/L (98-107) 105 mmol/L (98-107) Carbon Dioxide Level 32 mmol/L (21-32) 32 mmol/L (21-32) Anion Gap 5 (6-14) 6 (6-14) Blood Urea Nitrogen 2 mg/dL (8-26) 2 mg/dL (8-26) Creatinine 1.0 mg/dL (0.7-1.3) 0.9 mg/dL (0.7-1.3) Estimated GFR (Cockcroft-Gault) 78.8 89.0 Glucose Level 153 mg/dL (70-99) 111 mg/dL (70-99) Calcium Level 8.6 mg/dL (8.5-10.1) 8.6 mg/dL (8.5-10.1) Medications Current Medications Multivitamins 10 ml/Thiamine HCl 100 mg/Folic Acid 1 mg/Sodium Chloride 1,011.2 ml @ 100 mls/ hr DAILY IV Last administered on 02/03/22at 08:50; Start 01/31/22 at 09:00; Stop 02/04/22 at 19:07 Multivitamins (Thera M Plus) 1 tab DAILY PO ; Start 02/04/22 at 09:00 Folic Acid (Folic Acid) 1 mg DAILY PO ; Start 02/04/22 at 09:00 Thiamine HCl (Thiamine Im) 100 mg DAILY IM ; Start 02/04/22 at 09:00; Stop 02/09/22 at 08:59 Lorazepam (Ativan Inj) 2 mg PRN Q1HR PRN IV For CIWA 8-14; Start 01/30/22 at 20:00 Lorazepam (Ativan Inj) 4 mg PRN Q1HR PRN IV For CIWA 15 or greater; Start 01/30/22 at 20:00 Haloperidol Lactate (Haldol Inj) 5 mg PRN Q4HRS PRN IVP Hallucinatns,Confusn,Delirium; Start 01/30/22 at 20:00 Ondansetron HCl (Zofran) 4 mg PRN Q6HRS PRN IVP NAUSEA/VOMITING 1ST CHOICE; Start 01/30/22 at 21:30 Famotidine (Pepcid Vial) 20 mg BID IVP Last administered on 02/03/22at 21:37; Start 01/31/22 at 09:00 Info (Icu Electrolyte Protocol) 1 ea DAILY MC Last administered on 02/01/22at 09:00; Start 01/31/22 at 09:00; Stop 02/02/22 at 08:35; Status DC Heparin Sodium (Porcine) (Heparin Sodium) 5,000 unit Q8HRS SQ ; Start 01/30/22 at 22:00; Stop 01/30/22 at 21:47; Status DC Sodium Chloride (Normal Saline Flush) 3 ml QSHIFT PRN IV AFTER MEDS AND BLOOD DRAWS; Start 01/30/22 at 21:30 Senna/Docusate Sodium (Senna Plus) 1 tab BID PO Last administered on 01/31/22at 20:38; Start 01/31/22 at 09:00 Piperacillin Sod/ Tazobactam Sod (Zosyn Per Pharmacy) 1 each PRN DAILY PRN MC SEE COMMENTS; Start 01/30/22 at 22:00; Stop 02/02/22 at 10:55; Status DC Vancomycin HCl (Vanco Per Pharmacy) 1 each PRN DAILY PRN MC SEE COMMENTS Last administered on 02/01/22at 19:46; Start 01/30/22 at 22:00; Stop 02/02/22 at 10:55; Status DC Sodium Chloride 1,000 ml @ 125 mls/hr 1X ONCE IV Last administered on 01/30/22at 22:00; Start 01/30/22 at 22:00; Stop 01/31/22 at 05:59; Status DC Potassium Chloride/Water 100 ml @ 100 mls/hr Q1H IV Last administered on 01/31/22at 03:06; Start 01/30/22 at 23:30; Stop 01/31/22 at 04:29; Status DC Piperacillin Sod/ Tazobactam Sod 3.375 gm/Sodium Chloride 50 ml @ 100 mls/hr Q6HRS IV Last administered on 02/02/22at 05:07; Start 01/31/22 at 00:00; Stop 02/02/22 at 10:55; Status DC Vancomycin HCl 1.25 gm/Sodium Chloride 250 ml @ 167 mls/hr Q8H IV Last administered on 01/31/22at 09:16; Start 01/31/22 at 00:00; Stop 01/31/22 at 17:08; Status DC Vancomycin HCl (Vancomycin Trough Level) 1 each 1X ONCE MC Last administered on 01/31/22at 15:30; Start 01/31/22 at 15:30; Stop 01/31/22 at 15:31; Status DC Potassium Chloride/Water 100 ml @ 100 mls/hr Q1H IV Last administered on 01/31/22at 15:51; Start 01/31/22 at 08:00; Stop 01/31/22 at 15:59; Status DC Vancomycin HCl 1.25 gm/Sodium Chloride 250 ml @ 167 mls/hr Q12H IV Last administered on 02/02/22at 06:21; Start 01/31/22 at 19:00; Stop 02/02/22 at 10:55; Status DC Potassium Chloride/Water 100 ml @ 100 mls/hr Q1H IV Last administered on 02/01/22at 20:04; Start 02/01/22 at 10:00; Stop 02/01/22 at 17:59; Status DC Magnesium Sulfate 100 ml @ 25 mls/hr 1X ONCE IV Last administered on 02/01/22at 09:33; Start 02/01/22 at 09:15; Stop 02/01/22 at 13:14; Status DC Vancomycin HCl (Vancomycin Trough Level) 1 each 1X ONCE MC Last administered on 02/01/22at 18:30; Start 02/01/22 at 18:30; Stop 02/01/22 at 18:31; Status DC Potassium Chloride/Water 100 ml @ 100 mls/hr Q1H IV Last administered on 02/02/22at 15:00; Start 02/02/22 at 12:00; Stop 02/02/22 at 15:59; Status DC Potassium Chloride/Water 100 ml @ 100 mls/hr Q1H IV Last administered on 02/03/22at 16:00; Start 02/03/22 at 13:00; Stop 02/03/22 at 16:59; Status DC Vitals/I & O Vital Sign - Last 24 Hours 02/03/22 02/03/22 02/03/22 02/03/22 10:48 15:31 19:17 20:00 Temp 98.6 98.6 99.0 98.6 98.6 99.0 Pulse 105 108 97 Resp 18 20 16 B/P (MAP) 151/88 (109) 150/94 (112) 142/84 (103) Pulse Ox 94 95 95 O2 Delivery Room Air Room Air Room Air Room Air 02/03/22 02/04/22 02/04/22 22:25 02:02 07:00 Temp 98.5 97.8 98.2 98.5 97.8 98.2 Pulse 99 89 110 Resp 16 18 18 B/P (MAP) 137/81 (99) 142/87 (105) 153/85 (107) Pulse Ox 97 98 96 O2 Delivery Room Air Room Air Room Air Intake and Output 02/03/22 02/03/22 02/04/22 15:00 23:00 07:00 Intake Total 120 ml 600 ml 240 ml Output Total 300 ml Balance -180 ml 600 ml 240 ml Justicifation of Admission Dx: Justifications for Admission: Justification of Admission Dx: Yes Stroke - Ischemic: Stroke-Ischemic ASHOK DILLARD MD Feb 04, 2022 08:47
[2022-02-04] MEDS: FOLIC ACID 1 MG TABLET. PO SCH (09:06)
[2022-02-04] MEDS: SENNOSIDES/DOCUSATE 8.6/50MG TABLET. PO SCH ×2 (09:06→20:58)
[2022-02-04] MEDS: MULTIVITAMIN with MINERAL TABLET. PO SCH (09:06)
[2022-02-04] MEDS: FAMOTIDINE 20 MG/2 ML VIAL IVP SCH ×2 (09:07→20:58)
[2022-02-04] MEDS: THIAMINE IM 200 MG/2 ML VIAL. IM SCH (09:07)
[2022-02-04] MEDS: MULTIVIT INFUSN,ADULT 4,VIT K 10 ML, THIAMINE INJ 100 MG, FOLIC ACID INJ 1 MG in IV NOR... IV SCH (09:08)
--- NOTE | 2022-02-04 09:47 | PDOC ---
[facility] PROGRESS NOTE Date of Service DOS: DATE: 02/04/22 TIME: 09:45 Chief Complaint Chief Complaint Stroke with some hemorrhagic transformation's Found down Seizures Lactic acidosis Unable to care for self Left carotid disease Thyroid mass Alcohol abuse Dysphagia Expressive aphasia History of Present Illness History of Present Illness 02/04/2022 Patient seen and examined He seems to be improving slightly each day Discussed with RN Chart reviewed 02/04/2020 Patient seen and examined Discussed with case management Discussed with RN Discussed with speech therapy Patient is actually speaking much better today He is able to swallow thickened liquids pretty well His stroke symptoms are improving but he still has a lot of residual effect 02/02/2022 Patient seen and examined He has a expressive aphasia His toenails are very long and his hygiene is poor Has a mitt on his left hand for his safety Discussed with his nurse Discussed with case management Chart reviewed 02/01 Evaluate examined at bedside. Was able to keep a conversation sensibly for a few minutes and then started talking about his "Cristina." I could not figure out what this meant. We will look into thyroid mass seen on outside CT scan. Neurology following. Okay to transfer out of ICU. PT OT speech. 01/31 Patient evaluated examined at bedside. In bed notably more alert from overnight. Right-sided deficit is much more apparent with his speech. Did not continue Keppra from outside hospital as suspected seizures were related to alcohol withdrawal. MRI brain ordered. Echo with bubble study. PT OT speech. 45 minutes critical care time. Vitals/I&O Vitals/I&O: Vital Signs Date Time Temp Pulse Resp B/P (MAP) Pulse Ox O2 Delivery O2 Flow Rate FiO2 02/04/22 07:00 98.2 110 18 153/85 (107) 96 Room Air 98.2 I & O 02/03/22 02/03/22 02/04/22 15:00 23:00 07:00 Intake Total 120 ml 600 ml 240 ml Output Total 300 ml Balance -180 ml 600 ml 240 ml Physical Exam General: Alert, Cooperative, No acute distress Heart: Regular rate Lungs: Clear Abdomen: Normal bowel sounds, Soft, No tenderness Extremities: Normal pulses Skin: Other (multiple lesions throughout) Labs Labs: Laboratory Tests Test 02/03/22 10:54 02/04/22 04:00 Sodium Level 141 mmol/L (136-145) 143 mmol/L (136-145) Potassium Level 3.4 mmol/L (3.5-5.1) 3.2 mmol/L (3.5-5.1) Chloride Level 104 mmol/L (98-107) 105 mmol/L (98-107) Carbon Dioxide Level 32 mmol/L (21-32) 32 mmol/L (21-32) Anion Gap 5 (6-14) 6 (6-14) Blood Urea Nitrogen 2 mg/dL (8-26) 2 mg/dL (8-26) Creatinine 1.0 mg/dL (0.7-1.3) 0.9 mg/dL (0.7-1.3) Estimated GFR (Cockcroft-Gault) 78.8 89.0 Glucose Level 153 mg/dL (70-99) 111 mg/dL (70-99) Calcium Level 8.6 mg/dL (8.5-10.1) 8.6 mg/dL (8.5-10.1) Assessment and Plan Assessmemt and Plan Stroke with some hemorrhagic transformation's Found down Probable alcohol withdrawal seizures Lactic acidosis Unable to care for self Left carotid disease Thyroid mass Alcohol abuse Dysphagia Expressive aphasia Plan PT OT speech therapy We are holding his aspirin due to hemorrhagic transformation He is going to need [facility] and perhaps even long-term care? I discussed with director social service we are trying to get him Medicaid Home meds Dysphagia 2 with honey thickened liquids I ordered a TSH and a free T4 DVT prophylaxis Full code Long-term prognosis guarded Appreciate neurology input Comment Review of Relevant I have reviewed the following items erwin (where applicable) has been applied. Medications: Current Medications Medications (Trade) Dose Ordered Sig/Warren Route PRN Reason Start Time Stop Time Status Last Admin Dose Admin Multivitamins (Thera M Plus) 1 tab DAILY PO 02/04/22 09:00 02/04/22 09:06 Folic Acid (Folic Acid) 1 mg DAILY PO 02/04/22 09:00 02/04/22 09:06 Thiamine HCl (Thiamine Im) 100 mg DAILY IM 02/04/22 09:00 02/09/22 08:59 02/04/22 09:07 Potassium Chloride/Water 100 ml @ 100 mls/hr Q1H IV 02/03/22 13:00 02/03/22 16:59 DC 02/03/22 16:00 Justifications for Admission Other Justification DEMETRI VASQUEZ III DO Feb 04, 2022 09:47
[2022-02-04 11:00] VITALS: BP 148/74
--- NOTE | 2022-02-04 11:25 | PDOC2 ---
GI CONSULT Date of Service: DATE: 02/04/22 TIME: 11:05 Reason For Consult: abnormal abdominal CT @ [facility] HPI: HPI: 51 y/o male s/p CVA/seizure w/ expressive aphasia transferred here from [facility] on 01/30/22. No GI concerns per nurse. Pt denies GI complaints including reflux/heartburn, dysphagia, odynophagia, n/v, abd pain, diarrhea, constipation, hematochezia, melena, weight loss, and change in appetite. No previous EGD or colonoscopy. Denies GB, liver, pancreas, and PUD history. Ammonia mildly elevated @ [facility]. Viral hepatitis panel negative here. Notes suggest h/o heavy alcohol use. On IV Pepcid BID. CT @ [facility] noted an area of the thickening around the descending colon of unc ertain etiology and inseparable from the colonic wall but also involving adjacent retroperitoneal fat with indeterminate punctate calcification in this region. We are asked to see for this. PMH: PMH: per HPI FH: Family History: No pertinent hx (diffiuclt to obtain) Social History: Smoke: Quit ("I used to") ALCOHOL: heavy (other notes suggest) ROS: Questionable historian. GEN: Denies fevers, chills, sweats HEENT: Denies blurred vision, sore throat CV: Denies chest pain RESP: Denies shortness of air, cough GI: Per HPI : Denies hematuria, dysuria ENDO: Denies weight changes NEURO: Denies confusion, dizziness MSK: Denies weakness, joint pain/swelling SKIN: Denies jaundice, pruritus Vitals: Vitals: Vital Signs Date Time Temp Pulse Resp B/P (MAP) Pulse Ox O2 Delivery O2 Flow Rate FiO2 02/04/22 08:15 Room Air 02/04/22 07:00 98.2 110 18 153/85 (107) 96 98.2 Labs: Labs: Laboratory Tests Test 02/04/22 04:00 Sodium Level 143 mmol/L (136-145) Potassium Level 3.2 mmol/L (3.5-5.1) Chloride Level 105 mmol/L (98-107) Carbon Dioxide Level 32 mmol/L (21-32) Anion Gap 6 (6-14) Blood Urea Nitrogen 2 mg/dL (8-26) Creatinine 0.9 mg/dL (0.7-1.3) Estimated GFR (Cockcroft-Gault) 89.0 Glucose Level 111 mg/dL (70-99) Calcium Level 8.6 mg/dL (8.5-10.1) Allergies: Coded Allergies: No Known Drug Allergies (Unverified , 01/30/22) Medications: Current Medications Medications (Trade) Dose Ordered Sig/Warren Route PRN Reason Start Time Stop Time Status Last Admin Dose Admin Multivitamins (Thera M Plus) 1 tab DAILY PO 02/04/22 09:00 02/04/22 09:06 Folic Acid (Folic Acid) 1 mg DAILY PO 02/04/22 09:00 02/04/22 09:06 Thiamine HCl (Thiamine Im) 100 mg DAILY IM 02/04/22 09:00 02/09/22 08:59 02/04/22 09:07 Potassium Chloride/Water 100 ml @ 100 mls/hr Q1H IV 02/03/22 13:00 02/03/22 16:59 DC 02/03/22 16:00 Imaging: Imaging: From [facility] 01/30/22: CT head and C-spine IMPRESSION: Areas of decreased attenuation which are felt to represent areas of recent infarction are seen involving the left cerebral hemisphere as discussed above. No significant mass effect is seen. IMPRESSION: Degenerative changes are seen involving cervical spine as discussed above. These findings do not result in significant central spinal canal stenosis. No neural foraminal stenosis is seen. No acute osseous abnormality is seen. CT C/A/P CT chest: In the superior mediastinum there is a 5.4 cm mass which appears to represent mediastinal extension from a thyroid mass. This appears to be none and the patient has had prior thyroid imaging. Follow-up thyroid ultrasound is suggested. The lungs demonstrate no significant consolidation, mass or suspicious nodule. Mild the emphysema changes are seen. The thoracic aorta is normal in caliber. The heart size is normal. No pericardial effusion. There is no pleural effusion. No lymphadenopathy in the mediastinum, alex or axilla. CT A/P: The liver, gallbladder, spleen, pancreas, and the left adrenal gland appear unremarkable. The right adrenal gland demonstrate a low density nodule measuring catheter 3 cm in size likely related to an adenoma. The kidneys demonstrates no hydronephrosis. There is no urinary tract stone identified. There is a Aprra's catheter in place. There is no bowel obstruction. The appendix is normal. There is an area of the thickening around the descending colon of uncertain etiology. The area of the thickening appears to be inseparable from the colonic wall but also involves the adjacent retroperitoneal fat. Indeterminate punctate calcification is seen in this region. This area has irregular borders and could represent scarring. Correlate with surgical history. Findings are indeterminate and further evaluation with colonoscopy and contrast enhanced CT is suggested. The abdominal aorta is normal in caliber. No para-aortic significantly enlarged lymph node is seen. The osseous structures demonstrate mild degenerative changes in the thoracic and lumbar spine. IMPRESSION: CT chest: 5.4 cm superior mediastinal mass appears to be extension of thyroid goiter or mass. Follow-up nonemergent thyroid ultrasound is recommended. CT A/P: 1. Area of irregular focal thickening in the descending colon wall inseparable from the adjacent retroperitoneal tissue. Etiology is uncertain. Follow-up colonoscopy and CT scan of the abdomen and pelvis with contrast is recommended. 2. Right adrenal nodule measuring 3 cm with low density suggestive of lipid rich adenoma. CTA head/neck There is a common origin of the brachiocephalic and left common carotid arteries within the thoracic aortic arch. This is a normal variation. This origin is patent. The left vertebral artery originates as a discrete branch from the thoracic aortic arch proximal to the origin of the left subclavian artery. This is a normal variation. This origin is patent. The origin of the left subclavian artery is patent. The origins of the right common carotid artery and the right vertebral artery are patent. Mild atheromatous plaque formation seen involving both carotid bifurcations, left greater than right. A 50 percent stenosis is seen involving the proximal left internal carotid artery at its origin. This measures 8 mm in length. No hemodynamically significant stenosis is seen involving the right carotid bifurcation. The vertebral arteries are codominant. Both vertebral arteries demonstrate normal antegrade flow. No area stenosis or occlusion is seen. Intracranially, scattered atherosclerotic plaque formation is seen involving the cavernous portions of both internal carotid arteries. No hemodynamically significant stenosis or area of occlusion is seen. The basilar artery is patent. The anterior, middle and posterior cerebral arteries and their branches are within normal limits. No area of stenosis or occlusion is seen. No intracranial aneurysm is noted. The major dural venous sinuses are patent. Hyperemic enhancement is seen in the areas of recent infarction on the left cerebral hemisphere. No acute soft tissue abnormality is seen involving the neck. 4.5 cm heterogeneous nodule seen involving the left lobe of thyroid gland. This does not appear significantly changed from the patient's ultrasound dated 01/12/2018. Degenerative changes are seen involving the uncovertebral and facet joints throughout the cervical disc spaces. Impression: 1. Mild atheromatous plaque formation is seen involving both carotid bif urcations, left greater than right. A 50 percent stenosis is seen involving the proximal left internal carotid artery. 2. No intracranial stenosis or area of occlusion is seen. Right elbow x-ray FINDINGS: 2 views of the right elbow are obtained. There is no fracture, dislocation or subluxation. Evaluation for effusion is limited due to oblique positioning. IMPRESSION: No convincing acute osseous finding. Brain MRI 01/31 IMPRESSION: 1. Acute infarcts involving the left frontal, occipital, parietal and temporal lobes, the latter of which are associated with acute hemorrhage. 2. Nonspecific cerebral white matter changes, likely due to chronic small vessel disease. Echo 01/31 <Conclusion> The left ventricular systolic function is normal. The ejection fraction is 65%. There is normal LV segmental wall motion. Trace tricuspid regurgitation. There is no evidence of significant pericardial effusion. Bubble study technically difficult but appears to be negative. Consider ARLYN if clinical suspicion for PFO/ASD is high. EMBROIDERY FINISHER 02/02 IMPRESSIONS: Mild oropharyngeal dysphagia w/ improvement noted. No s/s aspirtion noted w/ honey thick liquids, puree and solids, but inconsistent s/s aspiration thin liquids. Suspect neurogenic dysphagia c/w recent CVA, &/or altered mental status from ETOH withdrawal are primary contributors. RECOMMENDATIONS: Initiate dysphagia II diet w/ honey thick liquids. Supervi jyoti/assist w/ swallow precautions posted in room. RN to enter diet. Will continue EMBROIDERY FINISHER f/u per POC to address dysphagia and intiate communication eval. Communication Eval 02/03 Moderate receptive and expressive aphasia apparent in bedside communication evaluation characterized by pharaphasias, word finding errors, perseveration. Limited to following simple basic directions with model. RECOMMENDATIONS: Continue speech language treatment while in hospital and at discharge location. From 12/2017: Thyroid US IMPRESSION: 1. Coarse right thyroid calcification.. 2. 4.7 cm solid left thyroid nodule. Radionuclide thyroid uptake and scan, 01/12/2018: The 24-hour I-131 uptake is 19.7% of the administered dose. That value is in the normal range. Imaging of the gland was performed following IV injection of 15 mCi of technetium 99m pertechnetate. There is decreased activity in the lower pole of the left lobe of the gland corresponding to the patient's known thyroid nodule. No other abnormality is seen. IMPRESSION: 1. Normal 24-hour I-131 uptake of 19.7%. 2. "Cold" nodule in the lower pole of the left lobe of the thyroid gland corresponding to the solid nodule seen on the ultrasound exam. Malignancy is a possibility and ultrasound-guided biopsy is suggested for further evaluation. PE: GEN: NAD HEENT: Atraumatic, PERRL LUNGS: CTAB anteriorly HEART: tachycardic ABD: NABS, S/ND/NT EXTREMITY: No edema SKIN: No rashes, no jaundice NEURO/PSYCH: A & O, flat, expressive aphasia A/P: A/P: S/p CVA/seizure w/ expressive aphasia, dysphagia (tolerating PO) Thyroid mass H/o heavy alcohol use, macrocytic anemia Abnormal CT - area of the thickening around the descending colon CRC screen - none Rapid COVID negative @ [facility] -- Observe for now GI-minaya. Outpt colonoscopy. Seems might not need IV acid-residential property manager if eating. NGOZI RESTREPO Feb 04, 2022 11:25
--- NOTE | 2022-02-04 11:52 | NUR ---
SS following up with discharge planning. SS reviewed pt chart and discussed with pt RN. Pt is currently on room air. PO diet. Feeding himself. Pt continuing to work with PT/OT and showing some improvements. ST following. GI consulted. Thyroid Ultrasound today. Self pay. Med Assist following. SS will continue to follow for discharge planning.
--- NOTE | 2022-02-04 13:06 | RAD ---
US THYROID History: Reason: thyroid mass / Spl. Instructions: / History: Comparison: January 12, 2018 Technique: Multiple grayscale and color Doppler images of the thyroid gland were obtained. Findings: Right thyroid lobe: 4.0 x 1.7 x 1.6 cm. Homogeneous echotexture. Left thyroid lobe: 6.5 x 4.5 x 4.1 cm. Homogeneous echotexture. Isthmus: 0.6 cm. -Calcified right inferior nodule measures 1.4 x 1.4 x 1.2 cm. TI-RADS 4. Similar in size compared to prior. -Mixed cystic and solid the left mid nodule measures 4.8 x 4.4 x 4.2 cm (compared to 4.6 x 2.9 x 4.7 cm). TI-RADS 3. Mildly increased in size compared to prior. ACR Thyroid Imaging, Reporting And Data System (TI-RADS): White Paper Of The ACR TI-RADS Committee. J ournal of the [place] [employer], volume 14, issue 5, pages 587-595 (March 2017). IMPRESSION: 1. Increased TI-RADS 3 left thyroid nodule. Recommend fine-needle aspiration if not already performe d. If already performed recommend correlation with pathology and potential ultrasound follow-up if in dicated. 2. Unchanged TI-RADS 4 right thyroid nodule. Electronically signed by: Clay Ayon DO (02/04/2022 1:04 PM) [id number]
[2022-02-04 15:00] VITALS: BP 144/88
[2022-02-04] MEDS ORDERED: POTASSIUM CHLORIDE 20 MEQ TABLET.ER. PO ONE (18:30)
[2022-02-04 20:36] VITALS: BP 135/85
[2022-02-04 23:42] VITALS: BP 130/78
[2022-02-05 03:30] VITALS: BP 149/85
[2022-02-05 07:00] VITALS: BP 153/84
[2022-02-05] MEDS: MULTIVITAMIN with MINERAL TABLET. PO SCH (08:57)
[2022-02-05] MEDS: FAMOTIDINE 20 MG/2 ML VIAL IVP SCH ×2 (08:57→21:43)
[2022-02-05] MEDS: FOLIC ACID 1 MG TABLET. PO SCH (08:57)
[2022-02-05] MEDS: THIAMINE IM 200 MG/2 ML VIAL. IM SCH (08:59)
[2022-02-05] MEDS: SENNOSIDES/DOCUSATE 8.6/50MG TABLET. PO SCH ×2 (09:00→21:43)
--- NOTE | 2022-02-05 10:18 | PDOC ---
[employer] PROGRESS NOTE Date of Service DOS: DATE: 02/05/22 TIME: 10:16 Chief Complaint Chief Complaint Stroke with some hemorrhagic transformation's Found down Seizures Lactic acidosis Unable to care for self Left carotid disease Thyroid mass Alcohol abuse Dysphagia Expressive aphasia History of Present Illness History of Present Illness 02/05/2022 Patient seen and examined Discussed with RN Chart reviewed He continues to improve each day He needs his toenails trimmed Right foot has clean dry intact dressing I tried to get a thyroid biopsy done, but apparently we can get that as an inpatient and will have to be done outpatient 02/04/2022 Patient seen and examined He seems to be improving slightly each day Discussed with RN Chart reviewed 02/04/2020 Patient seen and examined Discussed with case management Discussed with RN Discussed with speech therapy Patient is actually speaking much better today He is able to swallow thickened liquids pretty well His stroke symptoms are improving but he still has a lot of residual effect 02/02/2022 Patient seen and examined He has a expressive aphasia His toenails are very long and his hygiene is poor Has a mitt on his left hand for his safety Discussed with his nurse Discussed with case management Chart reviewed 02/01 Evaluate examined at bedside. Was able to keep a conversation sensibly for a few minutes and then started talking about his "Cristina." I could not figure out what this meant. We will look into thyroid mass seen on outside CT scan. Neurology following. Okay to transfer out of ICU. PT OT speech. 01/31 Patient evaluated examined at bedside. In bed notably more alert from overnight. Right-sided deficit is much more apparent with his speech. Did not continue Keppra from outside hospital as suspected seizures were related to alcohol withdrawal. MRI brain ordered. Echo with bubble study. PT OT speech. 45 minutes critical care time. Vitals/I&O Vitals/I&O: Vital Signs Date Time Temp Pulse Resp B/P (MAP) Pulse Ox O2 Delivery O2 Flow Rate FiO2 02/05/22 08:00 Room Air 02/05/22 07:00 98.1 104 20 153/84 (107) 99 98.1 I & O 02/04/22 02/04/22 02/05/22 15:00 23:00 07:00 Intake Total 150 ml 846 ml 480 ml Output Total 300 ml 400 ml Balance 150 ml 546 ml 80 ml Physical Exam General: Alert, Cooperative, No acute distress Heart: Regular rate Lungs: Clear Abdomen: Normal bowel sounds, Soft, No tenderness Extremities: Normal pulses Skin: Other (multiple lesions throughout) Assessment and Plan Assessmemt and Plan Stroke with some hemorrhagic transformation's Found down Probable alcohol withdrawal seizures Lactic acidosis Unable to care for self Left carotid disease Thyroid mass Alcohol abuse Dysphagia Expressive aphasia Plan I try to get a thyroid biopsy done but apparently that will have to be done as outpatient For now continue the following PT OT speech therapy We are holding his aspirin due to hemorrhagic transformation He is going to need retirement and perhaps even long-term care? Appreciate GI input regarding the abnormal CT abdomen they are considering outpatient endoscopy We are trying to get him Medicaid Home meds Dysphagia 2 with honey thickened liquids Trend labs DVT prophylaxis Full code Long-term prognosis guarded Appreciate neurology input Comment Review of Relevant I have reviewed the following items erwin (where applicable) has been applied. Medications: Current Medications Medications (Trade) Dose Ordered Sig/Warren Route PRN Reason Start Time Stop Time Status Last Admin Dose Admin Potassium Chloride (Klor-Con) 40 meq 1X ONCE PO 02/04/22 18:30 02/04/22 18:33 DC 02/04/22 20:58 Justifications for Admission Other Justification DEMETRI VASQUEZ III DO Feb 05, 2022 10:18
[2022-02-05 11:00] VITALS: BP 128/92
[2022-02-05 15:00] VITALS: BP 128/92
[2022-02-05 19:00] VITALS: BP 138/81
[2022-02-05 23:16] VITALS: BP 127/83
[2022-02-06 03:15] VITALS: BP 147/83
[2022-02-06 04:41] LABS: CALCIUM 8.4 mg/dL (8.5-10.1); GFR 78.8; MAGNESIUM 1.5 mg/dL (1.8-2.4); POTASSIUM 3.6 mmol/L (3.5-5.1)
[2022-02-06 07:30] VITALS: BP 130/75
[2022-02-06] MEDS: MULTIVITAMIN with MINERAL TABLET. PO SCH (08:25)
[2022-02-06] MEDS: SENNOSIDES/DOCUSATE 8.6/50MG TABLET. PO SCH ×2 (08:25→21:18)
[2022-02-06] MEDS: FOLIC ACID 1 MG TABLET. PO SCH (08:25)
[2022-02-06] MEDS: FAMOTIDINE 20 MG/2 ML VIAL IVP SCH ×2 (08:25→21:18)
[2022-02-06] MEDS: THIAMINE IM 200 MG/2 ML VIAL. IM SCH (09:00)
[2022-02-06] MEDS ORDERED: MAGNESIUM SULFATE 2GM 50 ML IV ONE (10:00)
[2022-02-06 11:00] VITALS: BP 131/81
--- NOTE | 2022-02-06 12:59 | PDOC ---
[employer] PROGRESS NOTE Date of Service DOS: DATE: 02/06/22 TIME: 12:59 Chief Complaint Chief Complaint Stroke with some hemorrhagic transformation's Found down Seizures Lactic acidosis Unable to care for self Left carotid disease Thyroid mass Alcohol abuse Dysphagia Expressive aphasia History of Present Illness History of Present Illness 02/07/2020 Patient seen and examined Discussed with RN Chart reviewed 02/05/2022 Patient seen and examined Discussed with RN Chart reviewed He continues to improve each day He needs his toenails trimmed Right foot has clean dry intact dressing I tried to get a thyroid biopsy done, but apparently we can get that as an inpatient and will have to be done outpatient 02/04/2022 Patient seen and examined He seems to be improving slightly each day Discussed with RN Chart reviewed 02/04/2020 Patient seen and examined Discussed with case management Discussed with RN Discussed with speech therapy Patient is actually speaking much better today He is able to swallow thickened liquids pretty well His stroke symptoms are improving but he still has a lot of residual effect 02/02/2022 Patient seen and examined He has a expressive aphasia His toenails are very long and his hygiene is poor Has a mitt on his left hand for his safety Discussed with his nurse Discussed with case management Chart reviewed 02/01 Evaluate examined at bedside. Was able to keep a conversation sensibly for a few minutes and then started talking about his "Cristina." I could not figure out what this meant. We will look into thyroid mass seen on outside CT scan. Neurology following. Okay to transfer out of ICU. PT OT speech. 01/31 Patient evaluated examined at bedside. In bed notably more alert from overnight. Right-sided deficit is much more apparent with his speech. Did not continue Keppra from outside hospital as suspected seizures were related to alcohol withdrawal. MRI brain ordered. Echo with bubble study. PT OT speech. 45 minutes critical care time. Vitals/I&O Vitals/I&O: Vital Signs Date Time Temp Pulse Resp B/P (MAP) Pulse Ox O2 Delivery O2 Flow Rate FiO2 02/06/22 11:00 99.2 86 16 131/81 (98) 98 Room Air 99.2 I & O 02/05/22 02/05/22 02/06/22 15:00 23:00 07:00 Intake Total 970 ml 418 ml 328 ml Output Total 100 ml 115 ml 500 ml Balance 870 ml 303 ml -172 ml Physical Exam General: Alert, Cooperative, No acute distress Heart: Regular rate Lungs: Clear Abdomen: Normal bowel sounds, Soft, No tenderness Extremities: Normal pulses Skin: Other (multiple lesions throughout) Labs Labs: Laboratory Tests Test 02/06/22 04:00 Sodium Level 141 mmol/L (136-145) Potassium Level 3.6 mmol/L (3.5-5.1) Chloride Level 105 mmol/L (98-107) Carbon Dioxide Level 31 mmol/L (21-32) Anion Gap 5 (6-14) Blood Urea Nitrogen 5 mg/dL (8-26) Creatinine 1.0 mg/dL (0.7-1.3) Estimated GFR (Cockcroft-Gault) 78.8 Glucose Level 96 mg/dL (70-99) Calcium Level 8.4 mg/dL (8.5-10.1) Magnesium Level 1.5 mg/dL (1.8-2.4) Assessment and Plan Assessmemt and Plan Stroke with some hemorrhagic transformation's Found down Probable alcohol withdrawal seizures Lactic acidosis Unable to care for self Left carotid disease Thyroid mass Alcohol abuse Dysphagia Expressive aphasia Plan I try to get a thyroid biopsy done but apparently that will have to be done as outpatient For now continue the following PT OT speech therapy We are holding his aspirin due to hemorrhagic transformation He is going to need long term and perhaps even long-term care? Appreciate GI input regarding the abnormal CT abdomen they are considering outpatient endoscopy We are trying to get him Medicaid Home meds Dysphagia 2 with honey thickened liquids Trend labs DVT prophylaxis Full code Long-term prognosis guarded Appreciate neurology input Comment Review of Relevant I have reviewed the following items erwin (where applicable) has been applied. Medications: Current Medications Medications (Trade) Dose Ordered Sig/Warren Route PRN Reason Start Time Stop Time Status Last Admin Dose Admin Magnesium Sulfate 50 ml @ 25 mls/hr 1X ONCE IV 02/06/22 10:00 02/06/22 11:59 DC 02/06/22 11:15 Justifications for Admission Other Justification DEMETRI VASQUEZ III DO Feb 06, 2022 12:59
[2022-02-06 15:00] VITALS: BP 144/76
[2022-02-06 19:23] VITALS: BP 141/67
[2022-02-06 22:40] VITALS: BP 142/80
[2022-02-07 03:11] VITALS: BP 146/81
[2022-02-07 07:00] VITALS: BP 175/93
[2022-02-07] MEDS: FAMOTIDINE 20 MG/2 ML VIAL IVP SCH (08:45)
[2022-02-07] MEDS: MULTIVITAMIN with MINERAL TABLET. PO SCH (08:45)
[2022-02-07] MEDS: FOLIC ACID 1 MG TABLET. PO SCH (08:45)
[2022-02-07] MEDS: THIAMINE IM 200 MG/2 ML VIAL. IM SCH (08:45)
[2022-02-07] MEDS: SENNOSIDES/DOCUSATE 8.6/50MG TABLET. PO SCH ×2 (08:49→22:00)
--- NOTE | 2022-02-07 09:07 | PDOC ---
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 Left internal carotid artery 50% stenosis Cervical spondylosis Abnormal CT abdomen Thyroid mass Alcoholism Favorable lipid profile Dysphagia, passed swallow study Plan Rehabilitation modalities Management of abnormal CT abdomen and thyroid mass per internal medicine Alcohol withdrawal protocol Start 81 mg aspirin Subjective No complaints Objective Vital Signs Date Time Temp Pulse Resp B/P (MAP) Pulse Ox O2 Delivery O2 Flow Rate FiO2 02/07/22 07:00 97.9 80 19 175/93 (120) 97 Room Air 97.9 Intake and Output 02/07/22 07:00 Intake Total 778 ml Output Total 850 ml Balance -72 ml Intake Oral 778 ml Output Urine Total 850 ml PHYSICAL EXAM Alert. Expressive aphasia, follows some commands, quite a bit of intelligible speech PERRL. EOMI. CN: Right visual field cut, right central facial weakness Muscle tone: normal. Muscle strength: 4/5 right hemiparesis DTR: 2+ Plantar reflex: Flexor Gait: not examined in bed. Sensory exam: no abnormal findings. No cerebellar signs elicited out of proportion to weakness Review of Relevant I have reviewed the following items erwin (where applicable) has been applied. Labs Laboratory Tests Test 02/06/22 04:00 Sodium Level 141 mmol/L (136-145) Potassium Level 3.6 mmol/L (3.5-5.1) Chloride Level 105 mmol/L (98-107) Carbon Dioxide Level 31 mmol/L (21-32) Anion Gap 5 (6-14) Blood Urea Nitrogen 5 mg/dL (8-26) Creatinine 1.0 mg/dL (0.7-1.3) Estimated GFR (Cockcroft-Gault) 78.8 Glucose Level 96 mg/dL (70-99) Calcium Level 8.4 mg/dL (8.5-10.1) Magnesium Level 1.5 mg/dL (1.8-2.4) Medications Current Medications Multivitamins 10 ml/Thiamine HCl 100 mg/Folic Acid 1 mg/Sodium Chloride 1,011.2 ml @ 100 mls/ hr DAILY IV Last administered on 02/04/22at 09:08; Start 01/31/22 at 09:00; Stop 02/04/22 at 19:07; Status DC Multivitamins (Thera M Plus) 1 tab DAILY PO Last administered on 02/07/22at 08:45; Start 02/04/22 at 09:00 Folic Acid (Folic Acid) 1 mg DAILY PO Last administered on 02/07/22at 08:45; Start 02/04/22 at 09:00 Thiamine HCl (Thiamine Im) 100 mg DAILY IM Last administered on 02/07/22at 08:45; Start 02/04/22 at 09:00; Stop 02/09/22 at 08:59 Lorazepam (Ativan Inj) 2 mg PRN Q1HR PRN IV For CIWA 8-14; Start 01/30/22 at 20:00 Lorazepam (Ativan Inj) 4 mg PRN Q1HR PRN IV For CIWA 15 or greater; Start 01/30/22 at 20:00 Haloperidol Lactate (Haldol Inj) 5 mg PRN Q4HRS PRN IVP Hallucinatns,Confusn,Delirium; Start 01/30/22 at 20:00 Ondansetron HCl (Zofran) 4 mg PRN Q6HRS PRN IVP NAUSEA/VOMITING 1ST CHOICE; Start 01/30/22 at 21:30 Famotidine (Pepcid Vial) 20 mg BID IVP Last administered on 02/07/22at 08:45; Start 01/31/22 at 09:00 Info (Icu Electrolyte Protocol) 1 ea DAILY MC Last administered on 02/01/22at 09:00; Start 01/31/22 at 09:00; Stop 02/02/22 at 08:35; Status DC Heparin Sodium (Porcine) (Heparin Sodium) 5,000 unit Q8HRS SQ ; Start 01/30/22 at 22:00; Stop 01/30/22 at 21:47; Status DC Sodium Chloride (Normal Saline Flush) 3 ml QSHIFT PRN IV AFTER MEDS AND BLOOD DRAWS; Start 01/30/22 at 21:30 Senna/Docusate Sodium (Senna Plus) 1 tab BID PO Last administered on 02/06/22at 21:18; Start 01/31/22 at 09:00 Piperacillin Sod/ Tazobactam Sod (Zosyn Per Pharmacy) 1 each PRN DAILY PRN MC SEE COMMENTS; Start 01/30/22 at 22:00; Stop 02/02/22 at 10:55; Status DC Vancomycin HCl (Vanco Per Pharmacy) 1 each PRN DAILY PRN MC SEE COMMENTS Last administered on 02/01/22at 19:46; Start 01/30/22 at 22:00; Stop 02/02/22 at 10:55; Status DC Sodium Chloride 1,000 ml @ 125 mls/hr 1X ONCE IV Last administered on 01/30/22at 22:00; Start 01/30/22 at 22:00; Stop 01/31/22 at 05:59; Status DC Potassium Chloride/Water 100 ml @ 100 mls/hr Q1H IV Last administered on 01/31/22at 03:06; Start 01/30/22 at 23:30; Stop 01/31/22 at 04:29; Status DC Piperacillin Sod/ Tazobactam Sod 3.375 gm/Sodium Chloride 50 ml @ 100 mls/hr Q6HRS IV Last administered on 02/02/22at 05:07; Start 01/31/22 at 00:00; Stop 02/02/22 at 10:55; Status DC Vancomycin HCl 1.25 gm/Sodium Chloride 250 ml @ 167 mls/hr Q8H IV Last administered on 01/31/22at 09:16; Start 01/31/22 at 00:00; Stop 01/31/22 at 17:08; Status DC Vancomycin HCl (Vancomycin Trough Level) 1 each 1X ONCE MC Last administered on 01/31/22at 15:30; Start 01/31/22 at 15:30; Stop 01/31/22 at 15:31; Status DC Potassium Chloride/Water 100 ml @ 100 mls/hr Q1H IV Last administered on 01/31/22at 15:51; Start 01/31/22 at 08:00; Stop 01/31/22 at 15:59; Status DC Vancomycin HCl 1.25 gm/Sodium Chloride 250 ml @ 167 mls/hr Q12H IV Last administered on 02/02/22at 06:21; Start 01/31/22 at 19:00; Stop 02/02/22 at 10:55; Status DC Potassium Chloride/Water 100 ml @ 100 mls/hr Q1H IV Last administered on 02/01/22at 20:04; Start 02/01/22 at 10:00; Stop 02/01/22 at 17:59; Status DC Magnesium Sulfate 100 ml @ 25 mls/hr 1X ONCE IV Last administered on 02/01/22at 09:33; Start 02/01/22 at 09:15; Stop 02/01/22 at 13:14; Status DC Vancomycin HCl (Vancomycin Trough Level) 1 each 1X ONCE MC Last administered on 02/01/22at 18:30; Start 02/01/22 at 18:30; Stop 02/01/22 at 18:31; Status DC Potassium Chloride/Water 100 ml @ 100 mls/hr Q1H IV Last administered on 02/02/22at 15:00; Start 02/02/22 at 12:00; Stop 02/02/22 at 15:59; Status DC Potassium Chloride/Water 100 ml @ 100 mls/hr Q1H IV Last administered on 02/03/22at 16:00; Start 02/03/22 at 13:00; Stop 02/03/22 at 16:59; Status DC Potassium Chloride (Klor-Con) 40 meq 1X ONCE PO Last administered on 02/04/22at 20:58; Start 02/04/22 at 18:30; Stop 02/04/22 at 18:33; Status DC Magnesium Sulfate 50 ml @ 25 mls/hr 1X ONCE IV Last administered on 02/06/22at 11:15; Start 02/06/22 at 10:00; Stop 02/06/22 at 11:59; Status DC Vitals/I & O Vital Sign - Last 24 Hours 02/06/22 02/06/22 02/06/22 02/06/22 11:00 15:00 19:23 20:00 Temp 99.2 98.3 98.2 99.2 98.3 98.2 Pulse 86 83 89 Resp 16 18 18 B/P (MAP) 131/81 (98) 144/76 (98) 141/67 (91) Pulse Ox 98 98 99 O2 Delivery Room Air Room Air Room Air Room Air 02/06/22 02/07/22 02/07/22 22:40 03:11 07:00 Temp 99.2 99.7 97.9 99.2 99.7 97.9 Pulse 88 80 80 Resp 18 16 19 B/P (MAP) 142/80 (100) 146/81 (102) 175/93 (120) Pulse Ox 97 100 97 O2 Delivery Room Air Room Air Room Air Intake and Output 02/06/22 02/06/22 02/07/22 15:00 23:00 07:00 Intake Total 298 ml 480 ml 0 ml Output Total 400 ml 450 ml Balance 298 ml 80 ml -450 ml Justicifation of Admission Dx: Justifications for Admission: Justification of Admission Dx: Yes Stroke - Ischemic: Stroke-Ischemic ASHOK DILLARD MD Feb 07, 2022 09:07
[2022-02-07] MEDS: ASPIRIN ENTERIC COATED 81 MG TABLET.DR. PO SCH (09:19)
--- NOTE | 2022-02-07 10:01 | PDOC ---
[employer] PROGRESS NOTE Date of Service DOS: DATE: 02/07/22 TIME: 10:00 Chief Complaint Chief Complaint Stroke with some hemorrhagic transformation's Found down Seizures Lactic acidosis Unable to care for self Left carotid disease Thyroid mass Alcohol abuse Dysphagia Expressive aphasia History of Present Illness History of Present Illness 02/07/2022 Patient seen and examined Discussed with RN Chart reviewed Discussed with case management We are still awaiting insurance 02/07/2020 Patient seen and examined Discussed with RN Chart reviewed 02/05/2022 Patient seen and examined Discussed with RN Chart reviewed He continues to improve each day He needs his toenails trimmed Right foot has clean dry intact dressing I tried to get a thyroid biopsy done, but apparently we can get that as an inpatient and will have to be done outpatient 02/04/2022 Patient seen and examined He seems to be improving slightly each day Discussed with RN Chart reviewed 02/04/2020 Patient seen and examined Discussed with case management Discussed with RN Discussed with speech therapy Patient is actually speaking much better today He is able to swallow thickened liquids pretty well His stroke symptoms are improving but he still has a lot of residual effect 02/02/2022 Patient seen and examined He has a expressive aphasia His toenails are very long and his hygiene is poor Has a mitt on his left hand for his safety Discussed with his nurse Discussed with case management Chart reviewed 02/01 Evaluate examined at bedside. Was able to keep a conversation sensibly for a few minutes and then started talking about his "Cristina." I could not figure out what this meant. We will look into thyroid mass seen on outside CT scan. Neurology following. Okay to transfer out of ICU. PT OT speech. 01/31 Patient evaluated examined at bedside. In bed notably more alert from overnight. Right-sided deficit is much more apparent with his speech. Did not continue Keppra from outside hospital as suspected seizures were related to alcohol withdrawal. MRI brain ordered. Echo with bubble study. PT OT speech. 45 minutes critical care time. Vitals/I&O Vitals/I&O: Vital Signs Date Time Temp Pulse Resp B/P (MAP) Pulse Ox O2 Delivery O2 Flow Rate FiO2 02/07/22 07:00 97.9 80 19 175/93 (120) 97 Room Air 97.9 I & O 02/06/22 02/06/22 02/07/22 15:00 23:00 07:00 Intake Total 298 ml 480 ml 0 ml Output Total 400 ml 450 ml Balance 298 ml 80 ml -450 ml Physical Exam General: Alert, Cooperative, No acute distress Heart: Regular rate Lungs: Clear Abdomen: Normal bowel sounds, Soft, No tenderness Extremities: Normal pulses Skin: Other (multiple lesions throughout) Assessment and Plan Assessmemt and Plan Stroke with some hemorrhagic transformation's Found down Probable alcohol withdrawal seizures Lactic acidosis Unable to care for self Left carotid disease Thyroid mass Alcohol abuse Dysphagia Expressive aphasia Plan I try to get a thyroid biopsy done but apparently that will have to be done as outpatient For now continue the following: PT OT speech therapy We are holding his aspirin due to hemorrhagic transformation He is may need longterm and perhaps even long-term care? (Or maybe we could get him home with home health but were not sure) Appreciate GI input regarding the abnormal CT abdomen they are considering outpatient endoscopy We are trying to get him Medicaid Home meds Dysphagia 2 with honey thickened liquids Trend labs DVT prophylaxis Full code Long-term prognosis guarded but improving Appreciate neurology input Comment Review of Relevant I have reviewed the following items erwin (where applicable) has been applied. Medications: Current Medications Medications (Trade) Dose Ordered Sig/Warren Route PRN Reason Start Time Stop Time Status Last Admin Dose Admin Aspirin (Ecotrin) 81 mg [id number] PO 02/07/22 10:00 02/07/22 09:19 Justifications for Admission Other Justification DEMETRI VASQUEZ III DO Feb 07, 2022 10:01
[2022-02-07 10:26] VITALS: BP 138/82
--- NOTE | 2022-02-07 11:47 | PDOC ---
Date of Service: DATE: 02/07/22 TIME: 11:43 Subjective: Subjective: No GI complaints, not sleeping well. Objective: Objective: Stools charted. Vital Signs: Vital Signs Date Time Temp Pulse Resp B/P (MAP) Pulse Ox O2 Delivery O2 Flow Rate FiO2 02/07/22 10:26 98.2 89 19 138/82 (100) 97 Room Air 98.2 Imaging: Thyroid US 02/04 IMPRESSION: 1. Increased TI-RADS 3 left thyroid nodule. Recommend fine-needle aspiration if not already performed. If already performed recommend correlation with pathology and potential ultrasound follow-up if indicated. 2. Unchanged TI-RADS 4 right thyroid nodule. PE: GEN: NAD - up in chair, staff present LUNGS: room air HEART: RRR ABD: S/ND/NT NEURO/PSYCH: awake and alert, seems to struggle for some words A/P: S/p CVA/seizure w/ expressive aphasia Thyroid nodules - per primary H/o heavy alcohol use Abnormal CT - area of the thickening around the descending colon - ?past diverticulitis Rapid COVID negative @ [facility] -- Stable GI-minaya. Justicifation of Admission Dx: Justifications for Admission: Justification of Admission Dx: Yes Stroke - Ischemic: Stroke-Ischemic NGOZI RESTREPO Feb 07, 2022 11:47
--- NOTE | 2022-02-07 13:55 | NUR ---
SS following up with discharge planning. SS reviewed pt chart and discussed with pt RN. Pt is currently on room air. PO diet. Pt continuing to work with PT/OT. Pt still needing assistance with therapy. ST following. Self pay. Med Assist following. SS will continue to follow for discharge planning.
[2022-02-07 15:00] VITALS: BP 144/87
[2022-02-07 19:26] VITALS: BP 128/73
[2022-02-07] MEDS: FAMOTIDINE 20 MG TABLET. PO SCH (22:00)
[2022-02-07 23:00] VITALS: BP 131/60
[2022-02-08 03:44] VITALS: BP 145/85
[2022-02-08 06:42] VITALS: BP 135/79
[2022-02-08] MEDS: SENNOSIDES/DOCUSATE 8.6/50MG TABLET. PO SCH ×2 (07:58→20:44)
[2022-02-08] MEDS: FOLIC ACID 1 MG TABLET. PO SCH (07:58)
[2022-02-08] MEDS: FAMOTIDINE 20 MG TABLET. PO SCH ×2 (07:58→20:44)
[2022-02-08] MEDS: THIAMINE IM 200 MG/2 ML VIAL. IM SCH (07:58)
[2022-02-08] MEDS: ASPIRIN ENTERIC COATED 81 MG TABLET.DR. PO SCH (07:58)
[2022-02-08] MEDS: MULTIVITAMIN with MINERAL TABLET. PO SCH (07:58)
--- NOTE | 2022-02-08 10:08 | PDOC ---
Date of Service: DATE: 02/08/22 TIME: 10:06 Subjective: Subjective: No complaints. 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 Outpt colonoscopy eventually. Justicifation of Admission Dx: Justifications for Admission: Justification of Admission Dx: Yes Stroke - Ischemic: Stroke-Ischemic NGOZI RESTREPO Feb 08, 2022 10:08
[2022-02-08 11:00] VITALS: BP 155/85
--- NOTE | 2022-02-08 14:16 | PDOC ---
[employer] PROGRESS NOTE Date of Service DOS: DATE: 02/08/22 TIME: 14:13 Chief Complaint Chief Complaint Stroke with some hemorrhagic transformation's Found down Seizures Lactic acidosis Unable to care for self Left carotid disease Thyroid mass Alcohol abuse Dysphagia Expressive aphasia Left internal carotid artery 50% stenosis Cervical spondylosis Abnormal CT abdomen History of Present Illness History of Present Illness 02/08: Able to get up to bathroom with assistance from physical and Occupational Therapy. Still with little dysarthria and dysphagia. No chest pain or shortness of breath. Speech is slow 02/07/2022 Patient seen and examined Discussed with RN Chart reviewed Discussed with case management We are still awaiting insurance 02/07/2020 Patient seen and examined Discussed with RN Chart reviewed 02/05/2022 Patient seen and examined Discussed with RN Chart reviewed He continues to improve each day He needs his toenails trimmed Right foot has clean dry intact dressing I tried to get a thyroid biopsy done, but apparently we can get that as an inpatient and will have to be done outpatient 02/04/2022 Patient seen and examined He seems to be improving slightly each day Discussed with RN Chart reviewed 02/04/2020 Patient seen and examined Discussed with case management Discussed with RN Discussed with speech therapy Patient is actually speaking much better today He is able to swallow thickened liquids pretty well His stroke symptoms are improving but he still has a lot of residual effect 02/02/2022 Patient seen and examined He has a expressive aphasia His toenails are very long and his hygiene is poor Has a mitt on his left hand for his safety Discussed with his nurse Discussed with case management Chart reviewed 02/01 Evaluate examined at bedside. Was able to keep a conversation sensibly for a few minutes and then started talking about his "Cristina." I could not figure out what this meant. We will look into thyroid mass seen on outside CT scan. Neurology following. Okay to transfer out of ICU. PT OT speech. 01/31 Patient evaluated examined at bedside. In bed notably more alert from overnight. Right-sided deficit is much more apparent with his speech. Did not continue Keppra from outside hospital as suspected seizures were related to alcohol withdrawal. MRI brain ordered. Echo with bubble study. PT OT speech. 45 minutes critical care time. Vitals/I&O Vitals/I&O: Vital Signs Date Time Temp Pulse Resp B/P (MAP) Pulse Ox O2 Delivery O2 Flow Rate FiO2 02/08/22 11:00 98.2 89 18 155/85 (108) 99 Room Air 98.2 I & O 02/07/22 02/07/22 02/08/22 15:00 23:00 07:00 Intake Total 0 ml 0 ml Balance 0 ml 0 ml Physical Exam General: Alert, Cooperative, No acute distress Heart: Regular rate Lungs: Clear Abdomen: Normal bowel sounds, Soft, No tenderness Extremities: Normal pulses Skin: Other (multiple lesions throughout) Comment Review of Relevant I have reviewed the following items erwin (where applicable) has been applied. Medications: Current Medications Medications (Trade) Dose Ordered Sig/Warren Route PRN Reason Start Time Stop Time Status Last Admin Dose Admin Famotidine (Pepcid) 20 mg BID PO 02/07/22 21:00 02/08/22 07:58 Justifications for Admission Other Justification UMANG GUILLEN MD Feb 08, 2022 14:16
[2022-02-08 14:39] VITALS: BP 145/83
[2022-02-08 19:00] VITALS: BP 141/78
[2022-02-08 22:59] VITALS: BP 154/79
[2022-02-09 03:00] VITALS: BP 152/79
[2022-02-09 07:00] VITALS: BP 150/79
--- NOTE | 2022-02-09 07:59 | PDOC ---
[employer] PROGRESS NOTE Date of Service DOS: DATE: 02/09/22 TIME: 07:57 Chief Complaint Chief Complaint Stroke with some hemorrhagic transformation's Found down Seizures Lactic acidosis Unable to care for self Left carotid disease Thyroid mass Alcohol abuse Dysphagia Expressive aphasia Left internal carotid artery 50% stenosis Cervical spondylosis Abnormal CT abdomen History of Present Illness History of Present Illness 02/09: Seen sitting in chair. 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 Therapy is recommended a wheelchair for home. 02/08: Able to get up to bathroom with assistance from physical and Occupational Therapy. Still with little dysarthria and dysphagia. No chest pain or shortness of breath. Speech is slow 02/07: Patient seen and examined. We are still awaiting insurance 02/06: Patient seen and examined 02/05: Patient seen and examined. He continues to improve each day. He needs his toenails trimmed. Right foot has clean dry intact dressing 02/04: Patient seen and examined. He seems to be improving slightly each day 02/03: Patient seen and examined. Patient is actually speaking much better today. He is able to swallow thickened liquids pretty well 02/02: Patient seen and examined. He has a expressive aphasia. His toenails are very long and his hygiene is poor. Has a mitt on his left hand for his safety 02/01: Evaluate examined at bedside. Was able to keep a conversation sensibly for a few minutes and then started talking about his "Cristina." I could not figure out what this meant. 01/31:Patient evaluated examined at bedside. In bed notably more alert from overnight. Right-sided deficit is much more apparent with his speech. Did not continue Keppra from outside hospital as suspected seizures were related to alcohol withdrawal. MRI brain ordered. Echo with bubble study. PT OT speech. 45 minutes critical care time. Vitals/I&O Vitals/I&O: Vital Signs Date Time Temp Pulse Resp B/P (MAP) Pulse Ox O2 Delivery O2 Flow Rate FiO2 02/09/22 03:00 98.0 85 18 152/79 (103) 98 Room Air 98.0 I & O 02/08/22 02/08/22 02/09/22 15:00 23:00 07:00 Output Total 300 ml 950 ml Balance -300 ml -950 ml Physical Exam General: Alert, Cooperative, No acute distress Heart: Regular rate Lungs: Clear Abdomen: Normal bowel sounds, Soft, No tenderness Extremities: Normal pulses Skin: Other (multiple lesions throughout) Comment Review of Relevant I have reviewed the following items erwin (where applicable) has been applied. Justifications for Admission Other Justification UMANG GUILLEN MD Feb 09, 2022 07:59
[2022-02-09] MEDS: FAMOTIDINE 20 MG TABLET. PO SCH ×2 (08:54→20:04)
[2022-02-09] MEDS: FOLIC ACID 1 MG TABLET. PO SCH (08:54)
[2022-02-09] MEDS: MULTIVITAMIN with MINERAL TABLET. PO SCH (08:54)
[2022-02-09] MEDS: SENNOSIDES/DOCUSATE 8.6/50MG TABLET. PO SCH ×2 (08:54→20:04)
[2022-02-09] MEDS: ASPIRIN ENTERIC COATED 81 MG TABLET.DR. PO SCH (08:54)
--- NOTE | 2022-02-09 09:18 | PDOC ---
Date of Service: DATE: 02/09/22 TIME: 09:16 Objective: Objective: No GI concerns per nurse. Tolerating diet. Vital Signs: Vital Signs Date Time Temp Pulse Resp B/P (MAP) Pulse Ox O2 Delivery O2 Flow Rate FiO2 02/09/22 07:00 98.3 81 18 150/79 (102) 95 Room Air 98.3 PE: GEN: NAD NEURO/PSYCH: sleeping, not awakened A/P: S/p CVA Abnormal CT - area of the thickening around the descending colon - ?past diverticulitis - asymptomatic -- Currently without GI concerns. Justicifation of Admission Dx: Justifications for Admission: Justification of Admission Dx: Yes Stroke - Ischemic: Stroke-Ischemic NGOZI RESTREPO Feb 09, 2022 09:18
[2022-02-09 11:00] VITALS: BP 136/78
--- NOTE | 2022-02-09 12:11 | NUR ---
SS following up with discharge planning. SS reviewed pt chart and discussed with pt RN. Pt is currently on room air. Self pay. Med Assist following. Pt continues to work with PT/OT/ST. Some improvements made with therapy. PT/OT recommending acute rehabilitation. Referral sent to [facility], ; fax [phone], for consideration for [facility] inpatient rehabilitation. SS will continue to follow for discharge planning.
[2022-02-09 15:00] VITALS: BP 132/77
[2022-02-09 19:00] VITALS: BP 137/90
[2022-02-09 22:55] VITALS: BP 146/87
[2022-02-10 02:11] VITALS: BP 144/73
[2022-02-10 07:00] VITALS: BP 152/88
[2022-02-10] MEDS: MULTIVITAMIN with MINERAL TABLET. PO SCH (08:24)
[2022-02-10] MEDS: SENNOSIDES/DOCUSATE 8.6/50MG TABLET. PO SCH ×2 (08:24→20:52)
[2022-02-10] MEDS: ASPIRIN ENTERIC COATED 81 MG TABLET.DR. PO SCH (08:24)
[2022-02-10] MEDS: FOLIC ACID 1 MG TABLET. PO SCH (08:25)
[2022-02-10] MEDS: FAMOTIDINE 20 MG TABLET. PO SCH ×2 (08:25→20:52)
[2022-02-10 11:00] VITALS: BP 153/83
--- NOTE | 2022-02-10 12:25 | PDOC ---
[employer] PROGRESS NOTE Date of Service DOS: DATE: 02/10/22 TIME: 12: Chief Complaint Chief Complaint Stroke with some hemorrhagic transformation's Found down Seizures Lactic acidosis Unable to care for self Left carotid disease Thyroid mass Alcohol abuse Dysphagia Expressive aphasia Left internal carotid artery 50% stenosis Cervical spondylosis Abnormal CT abdomen History of Present Illness History of Present Illness 02/10: Sit up in chair. Not using his right arm effectively or following commands. Still with speech difficulties. His mother is visiting today. He he absolutely will need rehabilitation at discharge. 02/09: Seen sitting in chair. Still with slow speech and not following commands completely not using his right hand decreased auditor tax strength. Therapy is recommended a wheelchair for home. 02/08: Able to get up to bathroom with assistance from physical and Occupational Therapy. Still with little dysarthria and dysphagia. No chest pain or shortness of breath. Speech is slow 02/07: Patient seen and examined. We are still awaiting insurance 02/06: Patient seen and examined 02/05: Patient seen and examined. He continues to improve each day. He needs his toenails trimmed. Right foot has clean dry intact dressing 02/04: Patient seen and examined. He seems to be improving slightly each day 02/03: Patient seen and examined. Patient is actually speaking much better today. He is able to swallow thickened liquids pretty well 02/02: Patient seen and examined. He has a expressive aphasia. His toenails are very long and his hygiene is poor. Has a mitt on his left hand for his safety 02/01: Evaluate examined at bedside. Was able to keep a conversation sensibly for a few minutes and then started talking about his "Cristina." I could not figure out what this meant. 01/31:Patient evaluated examined at bedside. In bed notably more alert from overnight. Right-sided deficit is much more apparent with his speech. Did not continue Keppra from outside hospital as suspected seizures were related to alcohol withdrawal. MRI brain ordered. Echo with bubble study. PT OT speech. 45 minutes critical care time. Vitals/I&O Vitals/I&O: Vital Signs Date Time Temp Pulse Resp B/P (MAP) Pulse Ox O2 Delivery O2 Flow Rate FiO2 02/10/22 11:00 98.1 78 17 153/83 (106) 97 Room Air 98.1 I & O 02/09/22 02/09/2222 15:00 23:00 07:00 Intake Total 300 ml 400 ml Output Total 700 ml Balance 300 ml -300 ml Physical Exam General: Alert, Cooperative, No acute distress Heart: Regular rate Lungs: Clear Abdomen: Normal bowel sounds, Soft, No tenderness Extremities: Normal pulses Skin: Other (multiple lesions throughout) Comment Review of Relevant I have reviewed the following items erwin (where applicable) has been applied. Justifications for Admission Other Justification UMANG GUILLEN MD Feb 10, 2022 12:25
--- NOTE | 2022-02-10 14:20 | NUR ---
Wound Care Wound Type/Assessment: patient seen per follow up wound care consult. see wound assessment. patient has a wound to the right elbow this wound is scabbed over at this time. Cleaned the area then applied skin prep. patient also has a wound to the right knee, the wound was cleaned and redressed with Xeroform gauze with a foam dressing. The wound to the right great toe appears to be closed at this time, cleaned the area and applied Betadine. patient also has a wound to the right lateral hip, this wound has been pictured on a previous day, the wound was cleaned, and redressed with therahoney gel with Xeroform gauze and a foam. Wounds may be due to pressure d/t patient being found down. Treatment Recommendations/Plan: Right lateral knee- cleanse the wound then apply Xeroform gauze with a foam dressing, change every 2-3 days. right lateral hip- cleanse the wound then apply therahoney gel with Xeroform gauze with a foam dressing, change every 2-3 days. right elbow- assess the area, at this time the wound is scabbed right great toe- assess the area, at this time the wound appears closed Education provided: None Offloading surface/device: pillows to off-load Recommended Referrals/Tests: Recommend follow up with Podiatry for nail trimming. Discharge Recommendations for dressings: Continue as above.
--- NOTE | 2022-02-10 14:40 | NUR ---
SS following up with discharge planning. SS reviewed pt chart and discussed with pt RN. Pt is currently on room air. PO diet. PT/OT continuing to work with pt and continuing to make progress. Pt still requiring physical assistance with cares. ST following. Self pay. Med Assist following. [facility], ; fax [phone], stated that they have no beds available at this time. SS will continue to follow for discharge planning.
[2022-02-10 15:00] VITALS: BP 119/86
--- NOTE | 2022-02-10 18:23 | NUR ---
patient advanced to regular diet by st today. pt tolerated well.
[2022-02-10 19:00] VITALS: BP 129/80
[2022-02-10 22:52] VITALS: BP 144/78
[2022-02-11 02:23] VITALS: BP 169/82
[2022-02-11 07:00] VITALS: BP 157/86
[2022-02-11] MEDS: ASPIRIN ENTERIC COATED 81 MG TABLET.DR. PO SCH (08:27)
[2022-02-11] MEDS: FOLIC ACID 1 MG TABLET. PO SCH (08:29)
[2022-02-11] MEDS: MULTIVITAMIN with MINERAL TABLET. PO SCH (08:29)
[2022-02-11] MEDS: FAMOTIDINE 20 MG TABLET. PO SCH ×2 (08:29→20:45)
[2022-02-11] MEDS: SENNOSIDES/DOCUSATE 8.6/50MG TABLET. PO SCH ×2 (08:30→20:45)
[2022-02-11 11:00] VITALS: BP 139/75
--- NOTE | 2022-02-11 12:41 | PDOC ---
[employer] PROGRESS NOTE Date of Service DOS: DATE: 02/11/22 TIME: 12:40 Chief Complaint Chief Complaint Stroke with some hemorrhagic transformation's Found down Seizures Lactic acidosis Unable to care for self Left carotid disease Thyroid mass Alcohol abuse Dysphagia Expressive aphasia Left internal carotid artery 50% stenosis Cervical spondylosis Abnormal CT abdomen History of Present Illness History of Present Illness 02/11: Seen in bed. Still not able to effectively follow commands or uses right hand unable to supinate it. Discussed with therapy will need to continue to use wheelchair as well. Acute rehab referral pending for [facility]. 02/10: Sit up in chair. Not using his right arm effectively or following commands. Still with speech difficulties. His mother is visiting today. He he absolutely will need rehabilitation at discharge. 02/09: Seen sitting in chair. 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 Therapy is recommended a wheelchair for home. 02/08: Able to get up to bathroom with assistance from physical and Occupational Therapy. Still with little dysarthria and dysphagia. No chest pain or shortness of breath. Speech is slow 02/07: Patient seen and examined. We are still awaiting insurance 02/06: Patient seen and examined 02/05: Patient seen and examined. He continues to improve each day. He needs his toenails trimmed. Right foot has clean dry intact dressing 02/04: Patient seen and examined. He seems to be improving slightly each day 02/03: Patient seen and examined. Patient is actually speaking much better today. He is able to swallow thickened liquids pretty well 02/02: Patient seen and examined. He has a expressive aphasia. His toenails are very long and his hygiene is poor. Has a mitt on his left hand for his safety 02/01: Evaluate examined at bedside. Was able to keep a conversation sensibly for a few minutes and then started talking about his "Cristina." I could not figure out what this meant. 01/31:Patient evaluated examined at bedside. In bed notably more alert from overnight. Right-sided deficit is much more apparent with his speech. Did not continue Keppra from outside hospital as suspected seizures were related to alcohol withdrawal. MRI brain ordered. Echo with bubble study. PT OT speech. 45 minutes critical care time. Vitals/I&O Vitals/I&O: Vital Signs Date Time Temp Pulse Resp B/P (MAP) Pulse Ox O2 Delivery O2 Flow Rate FiO2 02/11/22 08:00 Room Air 02/11/22 07:00 96.6 85 18 157/86 (109) 98 96.6 I & O 02/10/22 02/10/22 02/11/22 15:00 23:00 07:00 Intake Total 800 ml 1600 ml Output Total 700 ml 2050 ml Balance 100 ml -450 ml Physical Exam General: Alert, Cooperative, No acute distress Heart: Regular rate Lungs: Clear Abdomen: Normal bowel sounds, Soft, No tenderness Extremities: Normal pulses Skin: Other (multiple lesions throughout) Comment Review of Relevant I have reviewed the following items erwin (where applicable) has been applied. Justifications for Admission Other Justification UMANG GUILLEN MD Feb 11, 2022 12:40
[2022-02-11 15:00] VITALS: BP 145/86
[2022-02-11 19:02] VITALS: BP 143/82
[2022-02-11 22:36] VITALS: BP 162/88
[2022-02-12 07:00] VITALS: BP 156/80
[2022-02-12] MEDS: FOLIC ACID 1 MG TABLET. PO SCH (08:39)
[2022-02-12] MEDS: SENNOSIDES/DOCUSATE 8.6/50MG TABLET. PO SCH ×2 (08:39→21:31)
[2022-02-12] MEDS: ASPIRIN ENTERIC COATED 81 MG TABLET.DR. PO SCH (08:39)
[2022-02-12] MEDS: MULTIVITAMIN with MINERAL TABLET. PO SCH (08:39)
[2022-02-12] MEDS: FAMOTIDINE 20 MG TABLET. PO SCH ×2 (08:39→21:31)
--- NOTE | 2022-02-12 09:41 | PDOC ---
[employer] PROGRESS NOTE Date of Service DOS: DATE: 02/12/22 TIME: 09:40 Chief Complaint Chief Complaint Stroke with some hemorrhagic transformation's Found down Seizures Lactic acidosis Unable to care for self Left carotid disease Thyroid mass Alcohol abuse Dysphagia Expressive aphasia Left internal carotid artery 50% stenosis Cervical spondylosis Abnormal CT abdomen History of Present Illness History of Present Illness 02/12: Not sleeping well at night. Still following commands poorly. No SOB or CP. occasionally agitated. 02/11: Seen in bed. Still not able to effectively follow commands or uses right hand unable to supinate it. Discussed with therapy will need to continue to use wheelchair as well. Acute rehab referral pending for [facility]. 02/10: Sit up in chair. Not using his right arm effectively or following commands. Still with speech difficulties. His mother is visiting today. He he absolutely will need rehabilitation at discharge. 02/09: Seen sitting in chair. Still with slow speech and not following commands completely not using his right hand decreased contact representative strength. Therapy is recommended a wheelchair for home. 02/08: Able to get up to bathroom with assistance from physical and Occupational Therapy. Still with little dysarthria and dysphagia. No chest pain or shortness of breath. Speech is slow 02/07: Patient seen and examined. We are still awaiting insurance 02/06: Patient seen and examined 02/05: Patient seen and examined. He continues to improve each day. He needs his toenails trimmed. Right foot has clean dry intact dressing 02/04: Patient seen and examined. He seems to be improving slightly each day 02/03: Patient seen and examined. Patient is actually speaking much better today. He is able to swallow thickened liquids pretty well 02/02: Patient seen and examined. He has a expressive aphasia. His toenails are very long and his hygiene is poor. Has a mitt on his left hand for his safety 02/01: Evaluate examined at bedside. Was able to keep a conversation sensibly for a few minutes and then started talking about his "Cristina." I could not figure out what this meant. 01/31:Patient evaluated examined at bedside. In bed notably more alert from overnight. Right-sided deficit is much more apparent with his speech. Did not continue Keppra from outside hospital as suspected seizures were related to alcohol withdrawal. MRI brain ordered. Echo with bubble study. PT OT speech. 45 minutes critical care time. Vitals/I&O Vitals/I&O: Vital Signs Date Time Temp Pulse Resp B/P (MAP) Pulse Ox O2 Delivery O2 Flow Rate FiO2 02/12/22 08:00 Room Air 02/12/22 07:00 98.6 80 18 156/80 (105) 97 98.6 I & O 02/11/22 02/11/22 02/12/22 15:00 23:00 07:00 Intake Total 500 ml 1000 ml Output Total 500 ml 100 ml Balance 0 ml 900 ml Physical Exam General: Alert, Cooperative, No acute distress Heart: Regular rate Lungs: Clear Abdomen: Normal bowel sounds, Soft, No tenderness Extremities: Normal pulses Skin: Other (multiple lesions throughout) Comment Review of Relevant I have reviewed the following items erwin (where applicable) has been applied. Justifications for Admission Other Justification UMANG GUILLEN MD Feb 12, 2022 09:41
[2022-02-12] MEDS ORDERED: traMADol 50 MG TABLET PO PRN (09:45)
[2022-02-12] MEDS ORDERED: ACETAMINOPHEN 325 MG TABLET. PO PRN (09:45)
[2022-02-12 11:00] VITALS: BP 124/88
[2022-02-12 15:00] VITALS: BP 145/84
[2022-02-12 19:52] VITALS: BP 146/80
[2022-02-12] MEDS: GABAPENTIN 300 MG CAPSULE. PO SCH (21:31)
[2022-02-12] MEDS: traZODone 100 MG TABLET. PO SCH (21:31)
[2022-02-12 23:17] VITALS: BP 128/80
[2022-02-13 03:25] VITALS: BP 148/80
[2022-02-13 07:00] VITALS: BP 131/106
[2022-02-13] MEDS: FOLIC ACID 1 MG TABLET. PO SCH (08:31)
[2022-02-13] MEDS: FAMOTIDINE 20 MG TABLET. PO SCH ×2 (08:31→20:25)
[2022-02-13] MEDS: SENNOSIDES/DOCUSATE 8.6/50MG TABLET. PO SCH ×2 (08:32→20:25)
[2022-02-13] MEDS: ASPIRIN ENTERIC COATED 81 MG TABLET.DR. PO SCH (08:32)
[2022-02-13] MEDS: MULTIVITAMIN with MINERAL TABLET. PO SCH (08:32)
--- NOTE | 2022-02-13 09:50 | PDOC ---
[employer] PROGRESS NOTE Date of Service DOS: DATE: 02/13/22 TIME: 09:49 Chief Complaint Chief Complaint Stroke with some hemorrhagic transformation's Found down Seizures Lactic acidosis Unable to care for self Left carotid disease Thyroid mass Alcohol abuse Dysphagia Expressive aphasia Left internal carotid artery 50% stenosis Cervical spondylosis Abnormal CT abdomen History of Present Illness History of Present Illness 02/13: Slept better last night. Some difficulty following commands and using his right arm and right leg. Still is dysarthria. Continue rehab modalities 02/12: Not sleeping well at night. Still following commands poorly. No SOB or CP. occasionally agitated. 02/11: Seen in bed. Still not able to effectively follow commands or uses right hand unable to supinate it. Discussed with therapy will need to continue to use wheelchair as well. Acute rehab referral pending for [facility]. 02/10: Sit up in chair. Not using his right arm effectively or following commands. Still with speech difficulties. His mother is visiting today. He he absolutely will need rehabilitation at discharge. 02/09: Seen sitting in chair. 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 Therapy is recommended a wheelchair for home. 02/08: Able to get up to bathroom with assistance from physical and Occupational Therapy. Still with little dysarthria and dysphagia. No chest pain or shortness of breath. Speech is slow 02/07: Patient seen and examined. We are still awaiting insurance 02/06: Patient seen and examined 02/05: Patient seen and examined. He continues to improve each day. He needs his toenails trimmed. Right foot has clean dry intact dressing 02/04: Patient seen and examined. He seems to be improving slightly each day 02/03: Patient seen and examined. Patient is actually speaking much better today. He is able to swallow thickened liquids pretty well 02/02: Patient seen and examined. He has a expressive aphasia. His toenails are very long and his hygiene is poor. Has a mitt on his left hand for his safety 02/01: Evaluate examined at bedside. Was able to keep a conversation sensibly for a few minutes and then started talking about his "Cristina." I could not figure out what this meant. 01/31:Patient evaluated examined at bedside. In bed notably more alert from overnight. Right-sided deficit is much more apparent with his speech. Did not continue Keppra from outside hospital as suspected seizures were related to alcohol withdrawal. MRI brain ordered. Echo with bubble study. PT OT speech. 45 minutes critical care time. Vitals/I&O Vitals/I&O: Vital Signs Date Time Temp Pulse Resp B/P (MAP) Pulse Ox O2 Delivery O2 Flow Rate FiO2 02/13/22 07:00 98.4 18 131/106 (114) 96 Room Air 98.4 02/13/22 03:25 86 I & O 02/12/22 02/12/22 02/13/22 15:00 23:00 07:00 Intake Total 500 ml 600 ml 550 ml Output Total 650 ml 200 ml Balance 500 ml -50 ml 350 ml Physical Exam General: Alert, Cooperative, No acute distress Heart: Regular rate Lungs: Clear Abdomen: Normal bowel sounds, Soft, No tenderness Extremities: Normal pulses Skin: Other (multiple lesions throughout) Comment Review of Relevant I have reviewed the following items erwin (where applicable) has been applied. Medications: Current Medications Medications (Trade) Dose Ordered Sig/Warren Route PRN Reason Start Time Stop Time Status Last Admin Dose Admin Gabapentin (Neurontin) 300 mg QHS PO 02/12/22 21:00 02/12/22 21:31 Trazodone HCl (Desyrel) 100 mg QHS PO 02/12/22 21:00 02/12/22 21:31 Justifications for Admission Other Justification UMANG GUILLEN MD Feb 13, 2022 09:50
[2022-02-13 11:00] VITALS: BP 143/81
[2022-02-13 15:00] VITALS: BP 150/78
[2022-02-13 19:27] VITALS: BP 140/77
[2022-02-13] MEDS: GABAPENTIN 300 MG CAPSULE. PO SCH (20:25)
[2022-02-13] MEDS: traZODone 100 MG TABLET. PO SCH (20:25)
[2022-02-13 22:11] VITALS: BP 149/75
[2022-02-14 02:13] VITALS: BP 138/89
[2022-02-14 07:00] VITALS: BP 166/81
[2022-02-14] MEDS: SENNOSIDES/DOCUSATE 8.6/50MG TABLET. PO SCH ×2 (09:00→20:49)
[2022-02-14] MEDS: FOLIC ACID 1 MG TABLET. PO SCH (09:13)
[2022-02-14] MEDS: MULTIVITAMIN with MINERAL TABLET. PO SCH (09:13)
[2022-02-14] MEDS: FAMOTIDINE 20 MG TABLET. PO SCH ×2 (09:13→20:48)
[2022-02-14] MEDS: ASPIRIN ENTERIC COATED 81 MG TABLET.DR. PO SCH (09:13)
--- NOTE | 2022-02-14 10:37 | PDOC ---
PROGRESS NOTES Date of Service DATE: 02/14/22 TIME: 10:34 Assessment Multiple small infarcts in the left hemisphere with some hemorrhagic transformation, but without significant mass effect. Left internal carotid artery 50% stenosis Cervical spondylosis Abnormal CT abdomen Thyroid mass Alcoholism Favorable lipid profile Dysphagia, resolved, passed swallow study Plan Rehabilitation modalities Management of abnormal CT abdomen and thyroid mass per internal medicine, GI has signed off Alcohol withdrawal protocol 81 mg aspirin Awaiting possible transfer to [facility] rehab Subjective Has some left hand pain Objective Vital Signs Date Time Temp Pulse Resp B/P (MAP) Pulse Ox O2 Delivery O2 Flow Rate FiO2 02/14/22 07:00 99.4 88 18 166/81 (109) 99 Room Air 99.4 Intake and Output 02/14/22 07:00 Intake Total 2750 ml Output Total 1625 ml Balance 1125 ml Intake Oral 2750 ml Output Urine Total 1625 ml # Voids 1 PHYSICAL EXAM Alert. Expressive aphasia, follows commands, quite a bit of intelligible speech PERRL. EOMI. CN: Right visual field cut, right central facial weakness Muscle tone: normal. Muscle strength: 4/5 right hemiparesis DTR: 2+ Plantar reflex: Flexor Gait: not examined in bed. Sensory exam: no abnormal findings. No cerebellar signs elicited out of proportion to weakness Review of Relevant I have reviewed the following items erwin (where applicable) has been applied. Medications Current Medications Multivitamins 10 ml/Thiamine HCl 100 mg/Folic Acid 1 mg/Sodium Chloride 1,011.2 ml @ 100 mls/ hr DAILY IV Last administered on 02/04/22at 09:08; Start 01/31/22 at 09:00; Stop 02/04/22 at 19:07; Status DC Multivitamins (Thera M Plus) 1 tab DAILY PO Last administered on 02/14/22at 09:13; Start 02/04/22 at 09:00 Folic Acid (Folic Acid) 1 mg DAILY PO Last administered on 02/14/22at 09:13; Start 02/04/22 at 09:00 Thiamine HCl (Thiamine Im) 100 mg DAILY IM Last administered on 02/08/22at 07:58; Start 02/04/22 at 09:00; Stop 02/09/22 at 08:59; Status DC Lorazepam (Ativan Inj) 2 mg PRN Q1HR PRN IV For CIWA 8-14; Start 01/30/22 at 20:00; Stop 02/12/22 at 09:40; Status DC Lorazepam (Ativan Inj) 4 mg PRN Q1HR PRN IV For CIWA 15 or greater; Start 01/30/22 at 20:00; Stop 02/12/22 at 09:40; Status DC Haloperidol Lactate (Haldol Inj) 5 mg PRN Q4HRS PRN IVP Hallucinatns,Confusn,Delirium; Start 01/30/22 at 20:00 Ondansetron HCl (Zofran) 4 mg PRN Q6HRS PRN IVP NAUSEA/VOMITING 1ST CHOICE; Start 01/30/22 at 21:30 Famotidine (Pepcid Vial) 20 mg BID IVP Last administered on 02/07/22at 08:45; Start 01/31/22 at 09:00; Stop 02/07/22 at 10:16; Status DC Info (Icu Electrolyte Protocol) 1 ea DAILY MC Last administered on 02/01/22at 09:00; Start 01/31/22 at 09:00; Stop 02/02/22 at 08:35; Status DC Heparin Sodium (Porcine) (Heparin Sodium) 5,000 unit Q8HRS SQ ; Start 01/30/22 at 22:00; Stop 01/30/22 at 21:47; Status DC Sodium Chloride (Normal Saline Flush) 3 ml QSHIFT PRN IV AFTER MEDS AND BLOOD DRAWS; Start 01/30/22 at 21:30 Senna/Docusate Sodium (Senna Plus) 1 tab BID PO Last administered on 02/13/22at 20:25; Start 01/31/22 at 09:00 Piperacillin Sod/ Tazobactam Sod (Zosyn Per Pharmacy) 1 each PRN DAILY PRN MC SEE COMMENTS; Start 01/30/22 at 22:00; Stop 02/02/22 at 10:55; Status DC Vancomycin HCl (Vanco Per Pharmacy) 1 each PRN DAILY PRN MC SEE COMMENTS Last administered on 02/01/22at 19:46; Start 01/30/22 at 22:00; Stop 02/02/22 at 10:55; Status DC Sodium Chloride 1,000 ml @ 125 mls/hr 1X ONCE IV Last administered on 01/30/22at 22:00; Start 01/30/22 at 22:00; Stop 01/31/22 at 05:59; Status DC Potassium Chloride/Water 100 ml @ 100 mls/hr Q1H IV Last administered on 01/31/22at 03:06; Start 01/30/22 at 23:30; Stop 01/31/22 at 04:29; Status DC Piperacillin Sod/ Tazobactam Sod 3.375 gm/Sodium Chloride 50 ml @ 100 mls/hr Q6HRS IV Last administered on 02/02/22at 05:07; Start 01/31/22 at 00:00; Stop 02/02/22 at 10:55; Status DC Vancomycin HCl 1.25 gm/Sodium Chloride 250 ml @ 167 mls/hr Q8H IV Last administered on 01/31/22at 09:16; Start 01/31/22 at 00:00; Stop 01/31/22 at 17:08; Status DC Vancomycin HCl (Vancomycin Trough Level) 1 each 1X ONCE MC Last administered on 01/31/22at 15:30; Start 01/31/22 at 15:30; Stop 01/31/22 at 15:31; Status DC Potassium Chloride/Water 100 ml @ 100 mls/hr Q1H IV Last administered on 01/31/22at 15:51; Start 01/31/22 at 08:00; Stop 01/31/22 at 15:59; Status DC Vancomycin HCl 1.25 gm/Sodium Chloride 250 ml @ 167 mls/hr Q12H IV Last admin istered on 02/02/22at 06:21; Start 01/31/22 at 19:00; Stop 02/02/22 at 10:55; Status DC Potassium Chloride/Water 100 ml @ 100 mls/hr Q1H IV Last administered on 02/01/22at 20:04; Start 02/01/22 at 10:00; Stop 02/01/22 at 17:59; Status DC Magnesium Sulfate 100 ml @ 25 mls/hr 1X ONCE IV Last administered on 02/01/22at 09:33; Start 02/01/22 at 09:15; Stop 02/01/22 at 13:14; Status DC Vancomycin HCl (Vancomycin Trough Level) 1 each 1X ONCE MC Last administered on 02/01/22at 18:30; Start 02/01/22 at 18:30; Stop 02/01/22 at 18:31; Status DC Potassium Chloride/Water 100 ml @ 100 mls/hr Q1H IV Last administered on 02/02/22at 15:00; Start 02/02/22 at 12:00; Stop 02/02/22 at 15:59; Status DC Potassium Chloride/Water 100 ml @ 100 mls/hr Q1H IV Last administered on 02/03/22at 16:00; Start 02/03/22 at 13:00; Stop 02/03/22 at 16:59; Status DC Potassium Chloride (Klor-Con) 40 meq 1X ONCE PO Last administered on 02/04/22at 20:58; Start 02/04/22 at 18:30; Stop 02/04/22 at 18:33; Status DC Magnesium Sulfate 50 ml @ 25 mls/hr 1X ONCE IV Last administered on 02/06/22at 11:15; Start 02/06/22 at 10:00; Stop 02/06/22 at 11:59; Status DC Aspirin (Ecotrin) 81 mg DAILYWBKFT PO Last administered on 02/14/22at 09:13; Start 02/07/22 at 10:00 Famotidine (Pepcid) 20 mg BID PO Last administered on 02/14/22at 09:13; Start 02/07/22 at 21:00 Acetaminophen (Tylenol) 650 mg PRN Q6HRS PRN PO MILD PAIN / TEMP > 100.3'F; Start 02/12/22 at 09:45 Tramadol HCl (Ultram) 50 mg PRN Q6HRS PRN PO MODERATE PAIN; Start 02/12/22 at 09:45 Gabapentin (Neurontin) 300 mg QHS PO Last administered on 02/13/22at 20:25; Start 02/12/22 at 21:00 Trazodone HCl (Desyrel) 100 mg QHS PO Last administered on 02/13/22at 20:25; Start 02/12/22 at 21:00 Vitals/I & O Vital Sign - Last 24 Hours 02/13/22 02/13/22 02/13/22 02/13/22 11:00 15:00 19:27 20:00 Temp 98.6 98.6 98.3 98.6 98.6 98.3 Resp 18 18 18 B/P (MAP) 143/81 (101) 150/78 (102) 140/77 (98) Pulse Ox 97 97 98 O2 Delivery Room Air Room Air Room Air Room Air 02/13/22 02/14/22 02/14/22 22:11 02:13 07:00 Temp 98.5 98.3 99.4 98.5 98.3 99.4 Pulse 80 88 Resp 18 18 18 B/P (MAP) 149/75 (99) 138/89 (105) 166/81 (109) Pulse Ox 96 98 99 O2 Delivery Room Air Room Air Room Air Intake and Output 02/13/22 02/13/22 02/14/22 15:00 23:00 07:00 Intake Total 600 ml 1700 ml 450 ml Output Total 300 ml 1325 ml Balance 300 ml 375 ml 450 ml Justicifation of Admission Dx: Justifications for Admission: Justification of Admission Dx: Yes Stroke - Ischemic: Stroke-Ischemic ASHOK DILLARD MD Feb 14, 2022 10:37
[2022-02-14 11:00] VITALS: BP 133/81
--- NOTE | 2022-02-14 11:25 | PDOC ---
[employer] PROGRESS NOTE Date of Service DOS: DATE: 02/14/22 TIME: 11:14 Chief Complaint Chief Complaint Stroke with some hemorrhagic transformation's Found down Seizures Lactic acidosis Unable to care for self Left carotid disease Thyroid mass Alcohol abuse Dysphagia Expressive aphasia Left internal carotid artery 50% stenosis Cervical spondylosis Abnormal CT abdomen History of Present Illness History of Present Illness 02/14: Slept well. Still with significant expressive aphasia word finding difficulty. Not consistently following commands or using his right hand. Therapy was able to walk with and recommended a right platform walker and/or whe elchair. Discussed with his father who is very debilitated and currently has his mother in a jail facility and no other family or friends. Awaiting [facility] rehab as he clearly cannot care for himself. 02/13: Slept better last night. Some difficulty following commands and using his right arm and right leg. Still is dysarthria. Continue rehab modalities 02/12: Not sleeping well at night. Still following commands poorly. No SOB or CP. occasionally agitated. 02/11: Seen in bed. Still not able to effectively follow commands or uses right hand unable to supinate it. D/w therapy needs to use wheelchair as well. Acute rehab referral pending. 02/10: Sit up in chair. Not using his right arm effectively or following commands. Still with speech difficulties. His mother is visiting today. He he absolutely will need rehabilitation at discharge. 02/09: Seen sitting in chair. Still with slow speech and not following commands completely not using his right hand decreased labor trainer strength. Therapy is recomm ended a wheelchair for home. 02/08: Able to get up to bathroom with assistance from physical and Occupational Therapy. Still with little dysarthria and dysphagia. No chest pain or shortness of breath. Speech is slow 02/07: Patient seen and examined. We are still awaiting insurance 02/06: Patient seen and examined 02/05: Patient seen and examined. He continues to improve each day. He needs his toenails trimmed. Right foot has clean dry intact dressing 02/04: Patient seen and examined. He seems to be improving slightly each day 02/03: Patient seen and examined. Patient is actually speaking much better today. He is able to swallow thickened liquids pretty well 02/02: Patient seen and examined. He has a expressive aphasia. His toenails are very long and his hygiene is poor. Has a mitt on his left hand for his safety 02/01: Evaluate examined at bedside. Was able to keep a conversation sensibly for a few minutes and then started talking about his "Cristina." I could not figure out what this meant. 01/31:Patient evaluated examined at bedside. In bed notably more alert from overnight. Right-sided deficit is much more apparent with his speech. Did not continue Keppra from outside hospital as suspected seizures were related to alcohol withdrawal. MRI brain ordered. Echo with bubble study. PT OT speech. 45 minutes critical care time. Vitals/I&O Vitals/I&O: Vital Signs Date Time Temp Pulse Resp B/P (MAP) Pulse Ox O2 Delivery O2 Flow Rate FiO2 02/14/22 11:00 98.0 105 18 133/81 (98) 97 Room Air 98.0 I & O 02/13/22 02/13/22 02/14/22 15:00 23:00 07:00 Intake Total 600 ml 1700 ml 450 ml Output Total 300 ml 1325 ml Balance 300 ml 375 ml 450 ml Physical Exam General: Alert, Cooperative, No acute distress Heart: Regular rate Lungs: Clear Abdomen: Normal bowel sounds, Soft, No tenderness Extremities: Normal pulses Skin: Other (multiple lesions throughout) Comment Review of Relevant I have reviewed the following items erwin (where applicable) has been applied. Justifications for Admission Other Justification UMANG GUILLEN MD Feb 14, 2022 11:25
--- NOTE | 2022-02-14 14:21 | NUR ---
SS following up with discharge planning. SS reviewed pt chart and discussed with pt RN. Pt is currently on room air. PO diet. PT/OT recommended inpatient rehabilitation. SS discussed with physician. Self pay. Med Assist following. Medicaid pending. Referrals sent to [facility], ; fax [phone], and [facility], ; fax [phone], for Medicaid pending LTC placement. SS contacted [employer] and requested copy of Medicaid application. SS will continue to follow for discharge planning.
[2022-02-14 15:00] VITALS: BP 142/81
[2022-02-14 19:19] VITALS: BP 150/54
[2022-02-14] MEDS: GABAPENTIN 300 MG CAPSULE. PO SCH (20:48)
[2022-02-14] MEDS: traZODone 100 MG TABLET. PO SCH (20:48)
[2022-02-14 22:07] VITALS: BP 141/73
[2022-02-15 02:18] VITALS: BP 142/85
[2022-02-15 07:00] VITALS: BP 146/78
[2022-02-15] MEDS: FAMOTIDINE 20 MG TABLET. PO SCH ×2 (08:14→20:39)
[2022-02-15] MEDS: FOLIC ACID 1 MG TABLET. PO SCH (08:14)
[2022-02-15] MEDS: MULTIVITAMIN with MINERAL TABLET. PO SCH (08:14)
[2022-02-15] MEDS: SENNOSIDES/DOCUSATE 8.6/50MG TABLET. PO SCH ×2 (08:14→20:39)
[2022-02-15] MEDS: ASPIRIN ENTERIC COATED 81 MG TABLET.DR. PO SCH (08:14)
--- NOTE | 2022-02-15 09:42 | PDOC ---
[employer] PROGRESS NOTE Date of Service DOS: DATE: 02/15/22 TIME: 09:41 Chief Complaint Chief Complaint Stroke with some hemorrhagic transformation's Found down Seizures Lactic acidosis Unable to care for self Left carotid disease Thyroid mass Alcohol abuse Dysphagia Expressive aphasia Left internal carotid artery 50% stenosis Cervical spondylosis Abnormal CT abdomen History of Present Illness History of Present Illness 02/15: Still struggling with significant word finding difficulty aphasia is a big barrier to communication. Still with spastic right upper and lower extremity weakness. Discussed in depth with his father is 24 7 needs can't be fulfilled at home. Looking for [facility] skilled facilities 02/14: Slept well. Still with significant expressive aphasia word finding difficulty. Not consistently following commands or using his right hand. Therapy was able to walk with and recommended a right platform walker and/or wheelchair. Discussed with his father who is very debilitated and currently has his mother in a half-way facility and no other family or friends. Awaiting [facility] rehab as he clearly cannot care for himself. 02/13: Slept better last night. Some difficulty following commands and using his right arm and right leg. Still is dysarthria. Continue rehab modalities 02/12: Not sleeping well at night. Still following commands poorly. No SOB or CP. occasionally agitated. 02/11: Seen in bed. Still not able to effectively follow commands or uses right hand unable to supinate it. D/w therapy needs to use wheelchair as well. Acute rehab referral pending. 02/10: Sit up in chair. Not using his right arm effectively or following comm ands. Still with speech difficulties. His mother is visiting today. He he absolutely will need rehabilitation at discharge. 02/09: Seen sitting in chair. Still with slow speech and not following commands completely not using his right hand decreased electronic technologist strength. Therapy is recommended a wheelchair for home. 02/08: Able to get up to bathroom with assistance from physical and Occupational Therapy. Still with little dysarthria and dysphagia. No chest pain or shortness of breath. Speech is slow 02/07: Patient seen and examined. We are still awaiting insurance 02/06: Patient seen and examined 02/05: Patient seen and examined. He continues to improve each day. He needs his toenails trimmed. Right foot has clean dry intact dressing 02/04: Patient seen and examined. He seems to be improving slightly each day 02/03: Patient seen and examined. Patient is actually speaking much better today. He is able to swallow thickened liquids pretty well 02/02: Patient seen and examined. He has a expressive aphasia. His toenails are very long and his hygiene is poor. Has a mitt on his left hand for his safety 02/01: Evaluate examined at bedside. Was able to keep a conversation sensibly for a few minutes and then started talking about his "Cristina." I could not figure out what this meant. 01/31:Patient evaluated examined at bedside. In bed notably more alert from overnight. Right-sided deficit is much more apparent with his speech. Did not continue Keppra from outside hospital as suspected seizures were related to alcohol withdrawal. MRI brain ordered. Echo with bubble study. PT OT speech. 45 minutes critical care time. Vitals/I&O Vitals/I&O: Vital Signs Date Time Temp Pulse Resp B/P (MAP) Pulse Ox O2 Delivery O2 Flow Rate FiO2 02/15/22 08:00 Room Air 02/15/22 07:00 97.9 76 16 146/78 (100) 99 97.9 I & O 02/14/22 02/14/22 02/15/22 15:00 23:00 07:00 Intake Total 1020 ml 1040 ml 950 ml Output Total 1100 ml 1000 ml 500 ml Balance -80 ml 40 ml 450 ml Physical Exam General: Alert, Cooperative, No acute distress Heart: Regular rate Lungs: Clear Abdomen: Normal bowel sounds, Soft, No tenderness Extremities: Normal pulses Skin: Other (multiple lesions throughout) Comment Review of Relevant I have reviewed the following items erwin (where applicable) has been applied. Justifications for Admission Other Justification UMANG GUILLEN MD Feb 15, 2022 09:42
[2022-02-15 11:00] VITALS: BP 155/74
--- NOTE | 2022-02-15 13:03 | NUR ---
SS following up with discharge planning. SS reviewed pt chart and discussed with pt RN. Pt is currently on room air. PT/OT recommending inpatient rehabilitation. PO diet. Self pay. SS received copy of Medicaid Application from [employer]. Don declined pt due to Medicaid pending status. [facility] [place] currently reviewing for LTC medicaid pending placement. Copy of Medicaid application sent to [facility]. SS sent referral to [facility], ; fax [phone], for re-review. SS will continue to follow for discharge planning. Addendum: 02/15/22 at 1516 by ALVARO MADDOX Pt accepted at [facility] [place] for Medicaid Pending LTC placement.
[2022-02-15 14:43] VITALS: BP 157/84
[2022-02-15 19:27] VITALS: BP 144/83
[2022-02-15] MEDS: GABAPENTIN 300 MG CAPSULE. PO SCH (20:38)
[2022-02-15] MEDS: traZODone 100 MG TABLET. PO SCH (20:39)
[2022-02-15 22:50] VITALS: BP 150/73
[2022-02-16 02:23] VITALS: BP 141/84
[2022-02-16 07:00] VITALS: BP 160/70
[2022-02-16] MEDS ORDERED: SENN-209 PO (08:21)
[2022-02-16] MEDS ORDERED: GABA300C18 PO (08:21)
[2022-02-16] MEDS ORDERED: ATOR40TA59 PO (08:21)
[2022-02-16] MEDS ORDERED: ACET325T21 PO (08:21)
[2022-02-16] MEDS ORDERED: TRAZ-123 PO (08:21)
[2022-02-16] MEDS ORDERED: MULT1TAB92 PO (08:21)
[2022-02-16] MEDS ORDERED: TRAM50TA PO (08:21)
[2022-02-16] MEDS ORDERED: Folic Acid PO (08:21)
[2022-02-16] MEDS ORDERED: ASPI-886 PO (08:21)
[2022-02-16] MEDS ORDERED: FAMO20TA5 PO (08:21)
[2022-02-16] MEDS: ASPIRIN ENTERIC COATED 81 MG TABLET.DR. PO SCH (08:25)
[2022-02-16] MEDS: SENNOSIDES/DOCUSATE 8.6/50MG TABLET. PO SCH ×2 (08:25→22:02)
[2022-02-16] MEDS: MULTIVITAMIN with MINERAL TABLET. PO SCH (08:25)
[2022-02-16] MEDS: FAMOTIDINE 20 MG TABLET. PO SCH ×2 (08:25→22:01)
[2022-02-16] MEDS: FOLIC ACID 1 MG TABLET. PO SCH (08:25)
--- NOTE | 2022-02-16 08:25 | SNU/HH DC ---
DISCHARGE ORDERS DISCHARGE INFORMATION: DISCHARGE DATE: Feb 16, 2022 FINAL DIAGNOSIS Acute CVA CONDITION ON DISCHARGE: Stable CODE STATUS: Code Status: Full POST DISCHARGE ORDERS: ACTIVITY ORDERS: Resume previous activity WEIGHT BEARING STATUS: As tolerated DIET AFTER DISCHARGE: Regular CHECKS AFTER DISCHARGE: CHECKS AFTER DISCHARGE: Check blood press - daily TREATMENT/EQUIPMENT ORDERS: ADAPTIVE EQUIPMENT NEEDED: Platform walker (Right arm [employer] platform walker) Physical Therapy For: Evalulation/Treatment Occupational Therapy For: Evaluation/Treatment DISCHARGE MEDICATIONS: Home Meds Active Scripts Atorvastatin Calcium (ATORVASTATIN CALCIUM) 40 Mg Tablet, 1 TAB PO QHS for CVA for 30 Days, #30 TAB 11 Refills Prov:UMANG GUILLEN MD 02/16/22 Multivits,Ca,Minerals/Iron/Fa (THERA-M TABLET) 1 Each Tablet, 1 TAB PO DAILY for Malnutrition for 30 Days, #30 TAB 11 Refills Prov:UMANG GUILLEN MD 02/16/22 [Folic Acid] 1 MG TABLET No Conflict Check, 1 MG PO DAILY for ETOH use disorder for 30 Days, #30 TAB 11 Refills Prov:UMANG GUILLEN MD 02/16/22 Famotidine (FAMOTIDINE) 20 Mg Tablet, 20 MG PO BID for GERD for 30 Days, #60 TAB 11 Refills Prov:UMANG GUILLEN MD 02/16/22 Sennosides/Docusate Sodium (Stool Softener-Stimulant Lax) 1 Each Tablet, 1 TAB PO PRN BID PRN for CONSTIPATION for 30 Days, #60 TAB 11 Refills Prov:UMANG GUILLEN MD 02/16/22 Trazodone Hcl (TRAZODONE HCL) 100 Mg Tablet, 100 MG PO QHS for Depression/Sleep for 30 Days, #30 TAB 11 Refills Prov:UMANG GUILLEN MD 02/16/22 Gabapentin (GABAPENTIN) 300 Mg Capsule, 300 MG PO QHS for Neuropathy/Alcohol use disorde for 30 Days, #30 CAP 11 Refills Prov:UMANG GUILLEN MD 02/16/22 Acetaminophen (ACETAMINOPHEN) 325 Mg Tablet, 650 MG PO PRN Q6HRS PRN for MILD PAIN / TEMP > 100.3'F for 30 Days, #120 TAB Prov:UMANG GUILLEN MD 02/16/22 Tramadol Hcl (TRAMADOL HCL) 50 Mg Tablet, 50 MG PO PRN Q6HRS PRN for MODERATE PAIN for 6 Days, #24 TAB Prov:UMANG GUILLEN MD 02/16/22 Aspirin (ASPIRIN EC) 81 Mg Tablet.dr, 81 MG PO DAILYWBKFT for CVA for 30 Days, #30 TAB.SR 11 Refills Prov:UMANG GUILLEN MD 02/16/22 UMANG GUILLEN MD Feb 16, 2022 08:25
--- NOTE | 2022-02-16 08:35 | PDOC ---
[employer] PROGRESS NOTE Date of Service DOS: DATE: 02/16/22 TIME: 08:26 Chief Complaint Chief Complaint Stroke with some hemorrhagic transformation's Found down Seizures Lactic acidosis Unable to care for self Left carotid disease Thyroid mass Alcohol abuse Dysphagia Expressive aphasia Left internal carotid artery 50% stenosis Cervical spondylosis Abnormal CT abdomen History of Present Illness History of Present Illness 02/16: Has had a voracious appetite ordering multiple trays. Only able to use his left hand feed himself and with expressive aphasia. Therapy is recommended right-sided platform walker. After discussion with patient and his father with his Medicaid pending application will go to long-term care to [facility] 02/15: Still struggling with significant word finding difficulty aphasia is a big barrier to communication. Still with spastic right upper and lower extremity weakness. Discussed in depth with his father is 24 7 needs can't be fulfilled at home. Looking for [facility] skilled facilities 02/14: Slept well. Still with significant expressive aphasia word finding difficulty. Not consistently following commands or using his right hand. Therapy was able to walk with and recommended a right platform walker and/or wheelchair. Discussed with his father who is very debilitated and currently has his mother in a fdc facility and no other family or friends. Await [facility] rehab as he clearly cannot care for himself. 02/13: Slept better last night. Some difficulty following commands and using his right arm and right leg. Still is dysarthria. Continue rehab modalities 02/12: Not sleeping well at night. Still following commands poorly. No SOB or CP. occasionally agitated. 02/11: Seen in bed. Still not able to effectively follow commands or uses right hand unable to supinate it. D/w therapy needs to use wheelchair as well. Acute rehab referral pending. 02/10: Sit up in chair. Not using his right arm effectively or following commands. Still with speech difficulties. His mother is visiting today. He he absolutely will need rehabilitation at discharge. 02/09: Seen sitting in chair. Still with slow speech and not following commands completely not using his right hand decreased geropsychologist strength. Therapy is recommended a wheelchair for home. 02/08: Able to get up to bathroom with assistance from physical and Occupational Therapy. Still with little dysarthria and dysphagia. No chest pain or shortness of breath. Speech is slow 02/07: Patient seen and examined. We are still awaiting insurance 02/06: Patient seen and examined 02/05: Patient seen and examined. He continues to improve each day. He needs his toenails trimmed. Right foot has clean dry intact dressing 02/04: Patient seen and examined. He seems to be improving slightly each day 02/03: Patient seen and examined. Patient is actually speaking much better today. He is able to swallow thickened liquids pretty well 02/02: Patient seen and examined. He has a expressive aphasia. His toenails are very long and his hygiene is poor. Has a mitt on his left hand for his safety 02/01: Evaluate examined at bedside. Was able to keep a conversation sensibly for a few minutes and then started talking about his "Cristina." I could not figure out what this meant. 01/31:Patient evaluated examined at bedside. In bed notably more alert from overnight. Right-sided deficit is much more apparent with his speech. Did not continue Keppra from outside hospital as suspected seizures were related to alcohol withdrawal. MRI brain ordered. Echo with bubble study. PT OT speech. 45 minutes critical care time. Vitals/I&O Vitals/I&O: Vital Signs Date Time Temp Pulse Resp B/P (MAP) Pulse Ox O2 Delivery O2 Flow Rate FiO2 02/16/22 07:00 160/70 (100) 96 Room Air 02/16/22 02:23 98.3 101 18 98.3 I & O 02/15/22 02/15/22 02/16/22 15:00 23:00 07:00 Intake Total 980 ml 960 ml 1900 ml Output Total 850 ml 600 ml 1110 ml Balance 130 ml 360 ml 790 ml Physical Exam General: Alert, Cooperative, No acute distress Heart: Regular rate Lungs: Clear Abdomen: Normal bowel sounds, Soft, No tenderness Extremities: Normal pulses Skin: Other (multiple lesions throughout) Comment Review of Relevant I have reviewed the following items erwin (where applicable) has been applied. Justifications for Admission Other Justification UMANG GUILLEN MD Feb 16, 2022 08:35
--- NOTE | 2022-02-16 08:40 | PDOC3 ---
Discharge Summary Visit Information Date of Admission: Jan 30, 2022 Date of Discharge: Feb 16, 2022 Admitting Diagnosis: Acute CVA Final Diagnosis Acute CVA Brief Hospital Course Allergies Allergies Coded Allergies Type Severity Reaction Last Updated Verified No Known Drug Allergies 01/30/22 No Vital Signs Vital Signs Date Time Temp Pulse Resp B/P (MAP) Pulse Ox O2 Delivery O2 Flow Rate FiO2 02/16/22 07:00 160/70 (100) 96 Room Air 02/16/22 02:23 98.3 101 18 98.3 Brief Hospital Course Mr Lane is a 51-year-old right-handed male who presented to [facility] with altered mental status, found down at home. He was seizing in the emergency department. Family notes patient does drink alcohol frequently, no history of IV drug abuse Does not work. Dad reports patient ambulates, drives and makes his own decisions. Patient's uncle had the most recent contract with patient, te lives behind patient's home and reported to dad that patient was not acting appropriately on the phone 2 days prior-the patient had complained of not feeling well. Dad is unsure when he last saw patient, suspects 1 to 2 weeks ago. Brother rarely sees pt. Hx is limited due to family being poor historians - they are not confident when pt was last at his baseline. They were confident that pt had had his covid vaccine. Transferred to [facility] for concern for missed CVA, which was confirmed on MRI. Prolonged hospital stay given inability to fulfill self care. 01/31:Patient evaluated examined at bedside. In bed notably more alert from overnight. Right-sided deficit is much more apparent with his speech. Did not continue Keppra from outside hospital as suspected seizures were related to alcohol withdrawal. MRI brain ordered. Echo with bubble study. PT OT speech. 45 minutes critical care time. 02/01: Evaluate examined at bedside. MRI: left frontal, occipital, parietal and temporal lobes, the latter of which are associated with acute hemorrhage. 02/02: Patient seen and examined. He has a expressive aphasia. His toenails are very long and his hygiene is poor. Has a mitt on his left hand for his safety 02/03: Patient seen and examined. Patient is actually speaking much better today. He is able to swallow thickened liquids pretty well 02/04: Patient seen and examined. He seems to be improving slightly each day 02/05: Patient seen and examined. He continues to improve each day. He needs his toenails trimmed. Right foot has clean dry intact dressing 02/06: Patient seen and examined 02/07: Patient seen and examined. We are still awaiting insurance 02/08: Able to get up to bathroom with assistance from physical and Occupational Therapy. Still with little dysarthria and dysphagia. No CP or shortness of breath. Speech slow 02/09: Sitting in chair. Still with slow speech and not following commands completely not using his right hand decreased event marketing assistant strength. Therapy is recommended a wheelchair for home 02/10: Sit up in chair. Not using right arm effectively or following commands. Still with speech difficulties. His mother is visiting today. Absolutely will need rehabilitation at discharge. 02/11: Seen in bed. Still not able to effectively follow commands or uses right hand unable to supinate it. D/w therapy needs to use wheelchair as well. Acute rehab referral pending. 02/12: Not sleeping well at night. Still following commands poorly. No SOB or CP. occasionally agitated. 02/13: Slept better last night. Some difficulty following commands and using his right arm and right leg. Still is dysarthria. Continue rehab modalities 02/14: Slept well. Still with significant expressive aphasia word finding difficulty. Not consistently following commands or using his right hand. Therapy was able to walk with and recommended a right platform walker and/or wheelchair. Discussed with his father who is very debilitated and currently has his mother in a assisted facility and no other family or friends. [facility] as he clearly cannot care for himself. 02/15: Still struggling with significant word finding difficulty aphasia is a big barrier to communication. Still with spastic right upper and lower extremity weakness. Discussed in depth with his father is 24 7 needs can't be fulfilled at home. Looking for [facility] skilled facilities 02/16: Has had a voracious appetite ordering multiple trays. Only able to use his left hand feed himself and with expressive aphasia. Therapy is recommended right-sided platform walker. After discussion with patient and his father with his Medicaid pending application will go to long-term care to [facility] 02/17: Slept a significant amount. Trying to use his right hand more though there is no coordination or use of the fingers. He mostly lifts using his left arm. Still with expressive aphasia Consults: Neurology, gastroenterology Problem list: Stroke with some hemorrhagic transformation - left frontal, occipital, parietal and temporal lobes, the latter of which are associated with acute hemorrhage. Found down Seizures Lactic acidosis Unable to care for self Left carotid disease Thyroid mass Alcohol abuse Dysphagia Expressive aphasia Left internal carotid artery 50% stenosis Cervical spondylosis Abnormal CT abdomen Greater than 30 minutes spent on d/c to SNF Discharge Information Condition at Discharge: Stable Follow Up: Weeks Disposition/Orders: D/C to Another Facility Scheduled Aspirin (Aspirin Ec) 81 Mg Tablet.dr, 81 MG PO DAILYWBKFT for CVA for 30 Days, # 30 Ref 11 Prescribed by: UMANG GUILLEN MD on 02/16/22820 Atorvastatin Calcium (Atorvastatin Calcium) 40 Mg Tablet, 1 TAB PO QHS for CVA for 30 Days, #30 Ref 11 Prescribed by: UMANG GUILLEN MD on 02/16/22820 Famotidine (Famotidine) 20 Mg Tablet, 20 MG PO BID for GERD for 30 Days, #60 Ref 11 Prescribed by: UMANG GUILLEN MD on 02/16/22820 Gabapentin (Gabapentin) 300 Mg Capsule, 300 MG PO QHS for Neuropathy/Alcohol use disorde for 30 Days, #30 Ref 11 Prescribed by: UMANG GUILLEN MD on 02/16/22820 Multivits,Ca,Minerals/Iron/Fa (Thera-M Tablet) 1 Each Tablet, 1 TAB PO DAILY for Malnutrition for 30 Days, #30 Ref 11 Prescribed by: UMANG GUILLEN MD on 02/16/22820 Trazodone Hcl (Trazodone Hcl) 100 Mg Tablet, 100 MG PO QHS for Depression/Sleep for 30 Days, #30 Ref 11 Prescribed by: UMANG GUILLEN MD on 02/16/22820 [Folic Acid] 1 MG TABLET, 1 MG PO DAILY for ETOH use disorder for 30 Days, #30 Ref 11 Prescribed by: UMANG GUILLEN MD on 02/16/22820 Scheduled PRN Acetaminophen (Acetaminophen) 325 Mg Tablet, 650 MG PO PRN Q6HRS PRN for MILD PAIN / TEMP > 100.3'F for 30 Days, #120 Prescribed by: UMANG GUILLEN MD on 02/16/22 0821 Sennosides/Docusate Sodium (Stool Softener-Stimulant Lax) 1 Each Tablet, 1 TAB PO PRN BID PRN for CONSTIPATION for 30 Days, #60 Ref 11 Prescribed by: UMANG GUILLEN MD on 02/16/22 0821 Tramadol Hcl (Tramadol Hcl) 50 Mg Tablet, 50 MG PO PRN Q6HRS PRN for MODERATE PAIN for 6 Days, #24 Prescribed by: UMANG GUILLEN MD on 02/16/22 0822 Justicifation of Admission Dx: Justifications for Admission: Justification of Admission Dx: Yes Stroke - Ischemic: Stroke-Ischemic UMANG GUILLEN MD Feb 16, 2022 08:40
--- NOTE | 2022-02-16 10:10 | NUR ---
Wound Care Wound Type/Assessment: patient seen per follow up wound care follow up. see wound assessment. patient has a wound to the right elbow, r knee and r hip that are sloughed over. R great toe has been resolved. Treatment Recommendations/Plan: R knee- right hip- right elbow- apply skin prep, hydrocolloid, foam, change every 3-4 days Education provided: None Offloading surface/device: pillows to off-load Recommended Referrals/Tests: Recommend follow up with Podiatry for nail trimming. Discharge Recommendations for dressings: Continue as above.
[2022-02-16 11:00] VITALS: BP 144/85
--- NOTE | 2022-02-16 12:01 | NUR ---
SS following up with discharge planning. SS reviewed pt chart and discussed with pt RN. Pt is currently on room air. Medicaid pending. Pt accepted for LTC placement at [facility], ; fax [phone]. CARE Assessment completed. Discharge orders received and sent to [facility]. Currently awaiting transportation time for discharge. SS will continue to follow for discharge planning.
[2022-02-16 15:00] VITALS: BP 144/69
[2022-02-16 19:00] VITALS: BP 131/91
[2022-02-16] MEDS: GABAPENTIN 300 MG CAPSULE. PO SCH (22:01)
[2022-02-16 22:02] VITALS: BP 145/84
[2022-02-16] MEDS: traZODone 100 MG TABLET. PO SCH (22:02)
[2022-02-17 02:29] VITALS: BP 135/72
[2022-02-17 07:00] VITALS: BP 134/76
[2022-02-17] MEDS: ASPIRIN ENTERIC COATED 81 MG TABLET.DR. PO SCH (08:00)
--- NOTE | 2022-02-17 08:14 | NUR ---
SS following up with discharge planning. SS reviewed pt chart. Pt is currently on room air. Pt accepted for LTC placement at [facility] [place], ; fax [phone]. [facility] called this morning and stated that they can transport pt to facility today at 1100 for LTC placement. Facility has received discharge orders, CARE Assessment, and copy of Medicaid application. Pt and pt's RN notified. Packet on chart.
[2022-02-17] MEDS: FAMOTIDINE 20 MG TABLET. PO SCH (08:23)
[2022-02-17] MEDS: SENNOSIDES/DOCUSATE 8.6/50MG TABLET. PO SCH (08:23)
[2022-02-17] MEDS: FOLIC ACID 1 MG TABLET. PO SCH (08:23)
[2022-02-17] MEDS: MULTIVITAMIN with MINERAL TABLET. PO SCH (08:23)
--- NOTE | 2022-02-17 10:22 | NUR ---
REPORT CALLED TO [facility] IN [place] FOR DISCHARGE AT 1100. ALL QUESTIONS ANSWERED FOR NURSE RECEIVING REPORT, CALL BACK NUMBER GIVEN FOR ANY QUESTIONS THAT MAY ARISE ONCE PT ARRIVES.
--- NOTE | 2022-02-17 10:30 | PDOC ---
[employer] PROGRESS NOTE Date of Service DOS: DATE: 02/17/22 TIME: 10:25 Chief Complaint Chief Complaint Stroke with some hemorrhagic transformation's Found down Seizures Lactic acidosis Unable to care for self Left carotid disease Thyroid mass Alcohol abuse Dysphagia Expressive aphasia Left internal carotid artery 50% stenosis Cervical spondylosis Abnormal CT abdomen History of Present Illness History of Present Illness 02/17: Slept a significant amount. Trying to use his right hand more though there is no coordination or use of the fingers. He mostly lifts using his left arm. Still with expressive aphasia 02/16: Has had a voracious appetite ordering multiple trays. Only able to use his left hand feed himself and with expressive aphasia. Therapy is recommended right-sided platform walker. After discussion with patient and his father with his Medicaid pending application will go to long-term care to [facility] 02/15: Still struggling with significant word finding difficulty aphasia is a big barrier to communication. Still with spastic right upper and lower extremity weakness. Discussed in depth with his father is 24 7 needs can't be fulfilled at home. Looking for [facility] skilled facilities 02/14: Slept well. Still with significant expressive aphasia word finding difficulty. Not consistently following commands or using his right hand. Therapy was able to walk with and recommended a right platform walker and/or wheelchair. Discussed with his father who is very debilitated and currently has his mother in a assisted facility and no other family or friends. Awaiting [facility] rehab as he clearly cannot care for himself. 02/13: Slept better last night. Some difficulty following commands and using his right arm and right leg. Still is dysarthria. Continue rehab modalities 02/12: Not sleeping well at night. Still following commands poorly. No SOB or CP. occasionally agitated. 02/11: Seen in bed. Still not able to effectively follow commands or uses right hand unable to supinate it. D/w therapy needs to use wheelchair as well. Acute rehab referral pending. 02/10: Sit up in chair. Not using his right arm effectively or following commands. Still with speech difficulties. His mother is visiting today. He he absolutely will need rehabilitation at discharge. 02/09: Seen sitting in chair. 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 Therapy is recommended a wheelchair for home. 02/08: Able to get up to bathroom with assistance from physical and Occupational Therapy. Still with little dysarthria and dysphagia. No chest pain or shortness of breath. Speech is slow 02/07: Patient seen and examined. We are still awaiting insurance 02/06: Patient seen and examined 02/05: Patient seen and examined. He continues to improve each day. He needs his toenails trimmed. Right foot has clean dry intact dressing 02/04: Patient seen and examined. He seems to be improving slightly each day 02/03: Patient seen and examined. Patient is actually speaking much better today. He is able to swallow thickened liquids pretty well 02/02: Patient seen and examined. He has a expressive aphasia. His toenails are very long and his hygiene is poor. Has a mitt on his left hand for his safety 02/01: Evaluate examined at bedside. Was able to keep a conversation sensibly for a few minutes and then started talking about his "Cristina." I could not figure out what this meant. 01/31:Patient evaluated examined at bedside. In bed notably more alert from overnight. Right-sided deficit is much more apparent with his speech. Did not continue Keppra from outside hospital as suspected seizures were related to alcohol withdrawal. MRI brain ordered. Echo with bubble study. PT OT speech. 45 minutes critical care time. Vitals/I&O Vitals/I&O: Vital Signs Date Time Temp Pulse Resp B/P (MAP) Pulse Ox O2 Delivery O2 Flow Rate FiO2 02/17/22 08:00 Room Air 02/17/22 07:00 98.1 17 134/76 (95) 96 98.1 02/17/22 02:29 91 I & O 02/16/22 02/16/22 02/17/22 15:00 23:00 07:00 Intake Total 780 ml 1000 ml 500 ml Output Total 1000 ml 900 ml 1025 ml Balance -220 ml 100 ml -525 ml Physical Exam General: Alert, Cooperative, No acute distress Heart: Regular rate Lungs: Clear Abdomen: Normal bowel sounds, Soft, No tenderness Extremities: Normal pulses Skin: Other (multiple lesions throughout) Comment Review of Relevant I have reviewed the following items erwin (where applicable) has been applied. Justifications for Admission Other Justification UMANG GUILLEN MD Feb 17, 2022 10:30
== END 2022-02-17 10:45 | DRG 64 ==
LOC: 1 WEST ICU 19:53 → 6 SOUTH 02-01 14:56
PROVIDERS: ADMIT Student in an Organized Health Care Education/Training Program; ATTEND Student in an Organized Health Care Education/Training Program
DX: I63.9 Cerebral infarction, unspecified (principal); I61.9 Nontraumatic intracerebral hemorrhage, unspecified; E87.2 Acidosis; E04.2 Nontoxic multinodular goiter; E27.8 Other specified disorders of adrenal gland; M47.812 Spondylosis without myelopathy or radiculopathy, cervical region; R13.12 Dysphagia, oropharyngeal phase; R47.01 Aphasia; R56.9 Unspecified convulsions; Y90.9 Presence of alcohol in blood, level not specified; R47.1 Dysarthria and anarthria; R53.81 Other malaise; F10.10 Alcohol abuse, uncomplicated; D53.9 Nutritional anemia, unspecified; R29.700 NIHSS score 0
CPT/HCPCS: 36415; 70551; 76536; 80048; 80053; 80061; 80202; 82140; 82550; 83605; 83735; 84132; 84443; 85025; 86703; 86705; 86709; 86803; 87340; 93306; J2543; J3370; J3411; J3475; J3480; J3490; J7030; J7050; 92507-GN; 92523-GN; 92526-GN; 92610-GN; 97110-GO; 97110-GP; 97112-GP; 97116-GP; 97530-GO; 97530-GP; 97535-GO; C8929; G0378